=== PATIENT | female | born 1985 | race Two or more races ===

== ENCOUNTER 2024-03-23 16:44 | Inpatient (IN) | payer MEDICAID, SELFPAY ==
[2024-03-23 16:44] VITALS: BMI 33.0
[2024-03-23 16:55] VITALS: BP 138/98; PULSE 105; RESP 18; TEMP 36.7; O2SAT 99
--- NOTE | 2024-03-23 17:01 | EKG_ITS ---
[facility] (Formerly [facility]) Test Date: 2024-03-23 Pat Name: SEVERINO BIANCHI Department: Room: - Gender: Female Beater Out: : 1985 Requested By: Casey Anguiano (PAOLO) Order Number: [id number] Reading MD: Casey Anguiano (STEREOTYPER) Measurements Intervals Eunice Rate: 106 P: 27 CA: 119 QRS: 26 QRSD: 76 T: 25 QT: 336 QTc: 446 Interpretive Statements SINUS TACHYCARDIA WITH SHORT CA INTERVAL ABNORMAL RHYTHM ECG Compared to ECG 11/11/2023 18:34:16 Short CA interval now present Sinus rhythm no longer present T-wave abnormality no longer present /store/S0/[id number].pdf
--- NOTE | 2024-03-23 17:02 | PD.EDRME ---
Rapid Medical Screening Exam RME Arrival date/time: 03/23/24 16:44 38-year-old female presents emergency department complaints of nausea vomiting chest pain and abdominal pain Chief Complaint: Abdominal Pain Time Seen by Provider: 03/23/24 16:51 Vital signs: Vital Signs Temperature 98.0 F 03/23/24 16:55 Pulse Rate 105 H 03/23/24 16:55 Respiratory Rate 18 03/23/24 16:55 Blood Pressure 138/98 H 03/23/24 16:55 Pulse Oximetry (%) 99 03/23/24 16:55 Oxygen Delivery Method Room Air 03/23/24 16:55
[2024-03-23] MEDS: ACETAMINOPHEN 500 MG TABLET 1000 MG PO (17:20)
[2024-03-23 17:35] LABS: Basophils # (Auto) 0.1 Thou/mm3 (0.0-0.2); Basophils % (Auto) 1 % (0-2.5); Eosinophils % (Auto) 0 % (0-10); Hematocrit 35.6 % (36.0-46.0); Hemoglobin 10.4 g/dL (12.0-16.0); Immature Granulocytes % (Auto) 0 % (0-0); Immature Granulocytes Auto 0.05 Thou/mm3 (0.00-0.00); Lymphocytes # (Auto) 0.7 Thou/mm3 (1.0-4.8); Lymphocytes % (Auto) 6 % (10-50); Mean Corpuscular HGB Conc 29.2 g/dl (31.0-37.0); Mean Corpuscular Hemoglobin 19.7 pg (25.0-35.0); Mean Corpuscular Volume 67 fL (80-100); Monocytes # (Auto) 0.8 Thou/mm3 (0.0-0.8); Monocytes % (Auto) 6 % (0-12); Neutrophils # (Auto) 11.7 Thou/mm3 (1.8-7.7); Neutrophils % (Auto) 88 % (37-80); Nucleated Red Blood Cell % 0 /100 WBC (0); Platelet Count 387 Thou/mm3 (140-440); Red Blood Count 5.29 Miln/mm3 (4.00-5.20); White Blood Count 13.3 Thou/mm3 (3.6-11.0)
[2024-03-23 18:03] LABS: Alanine Aminotransferase 13 U/L (10-49); Albumin, Serum 4.5 gm/dL (3.5-5.0); Albumin/Globulin Ratio 1.2 (1.2-2.2); Alkaline Phosphatase 117 U/L (46-116); Anion Gap 10 (7-16); Aspartate Amino Transferase 30 U/L (0-34); BUN/Creatinine Ratio 13 Ratio (12-20); Bilirubin,Total 0.7 mg/dL (0.3-1.2); Blood Urea Nitrogen 9 mg/dL (9-23); Calcium 9.3 mg/dL (8.3-10.6); Calcium (Corrected) 9.3 mg/dL (8.5-10.1); Carbon Dioxide 20.6 mMol/L (20.0-31.0); Chloride 107 mMol/L (98-107); Creatinine (Component) 0.7 mg/dL (0.6-1.3); Globulin 3.7 gm/dL (2.3-3.5); Glucose 117 mg/dL (74-106); Lipase 1409 U/L (12-53); Osmolality,Calculated 275 (275-295); Potassium 3.4 mMol/L (3.4-5.1); Sodium 138 mMol/L (136-145); Total Protein 8.2 gm/dL (5.7-8.2); Troponin I < 0.020 ng/mL (0.0-0.045); eGFR > 60 See Note
--- NOTE | 2024-03-23 18:11 | PC.NURSE ---
PT CAME TO TRIAGE DESK TO ASK HOW MUCH LONGER. INFORMED THAT MD WAITING ON URINE AND PT STATES I AM UNABLE TO PEE BECAUSE I CAN'T KEEP ANYTHING DOWN. INFORMED PT THAT NURSE WILL LEAVE NOTE FOR MD
--- NOTE | 2024-03-23 18:22 | EDNOTE_ITS ---
<Statement entered by Shy Linares MD - 03/24/24 21:13> As co-signing physician, I was present and available for consult prn. I concur with the plan and care as documented by the midlevel provider. ED General RME/HPI General Chief complaint: Abdominal Pain Stated complaint: ABD PAIN TODAY I HAVE AN ULCER Time Seen by Provider: 03/23/24 16:51 Arrival date/time: 03/23/24 16:44 CC: Left upper quadrant abdominal pain HPI ongoing for the past 30 hours with progressive increase in severity denies any prior history of similar events drinks alcohol on the weekends denies street drugs. Last menstrual cycle was 2 weeks ago. Persistent nausea and vomiting for the past 24 hours with progressive worsening of the pain currently her left upper quadrant abdominal pain is a 9 to a 10 on a 10 scale. The patient is writhing in the bed but is able to answer questions. RME / HPI RME / HPI narrative: 03/23/24 16:44 38-year-old female presents emergency department complaints of nausea vomiting chest pain and abdominal pain Related Data Previous Rx's ?Medication ?Instructions ?Recorded meloxicam 15 mg tablet (Mobic) 15 mg PO QDAY #15 tabs 09/05/17 medroxyprogesterone 10 mg tablet 10 mg PO QDAY #10 tabs 11/29/23 (Provera) ondansetron 4 mg disintegrating 4 mg PO Q8H PRN nausea and 11/29/23 tablet vomiting #10 tabs pantoprazole 40 mg tablet,delayed 40 mg PO QDAY #20 tabs 12/07/23 release (Protonix) Allergies Allergy/AdvReac Type Severity Reaction Status Date / Time No Known Allergies Allergy Verified 03/23/24 16:47 Review of Systems Review of Systems Narrative Review of Systems: GEN: No fever, no chills, no weight loss EYES: No discharge, no visual changes, no pain HEENT: No ear pain, no congestion, no sore throat PULM: No shortness of breath, no cough, no congestion CV: No chest pain, no dyspnea on exertion, no palpitations GI: No nausea, no vomiting, no diarrhea, + pain, no constipation : No frequency, no urgency, no dysuria MUSC/SKEL: No joint pain, no back pain SKIN: No rash PSYCH: No hallucinations, no depression HEME/LYMPH: No easy bleeding or bruising tendencies NEURO: No weakness, no headache Past Medical History Past Medical History CARDIAC: Negative Cardiac Disorders or Congestive Heart Failure RESPIRATORY: Negative Chronic Obstructive Pulmonary Disease (COPD) or Asthma GENITOURINARY: Negative Renal Disease REPRODUCTIVE: Positive Previous Pregnancies ENDOCRINE: Negative Diabetes Mellitus Type 1 or Diabetes Mellitus Type 2 HEMATOLOGIC: Positive Anemia; Negative Sickle Cell Disease OTHER HISTORY: Positive Blood Transfusions; Negative Blood Transfusion Reaction or Cancer Surgical History SURGICAL: Positive Tubal Ligation and Section Social History SMOKING STATUS: Never smoker SUBSTANCE USE: does not use ED Exam Narrative Physical exam: [General: Obese in significant discomfort but not in any acute distress Head normocephalic HEENT: Within acceptable limits Neck is supple nontender Chest equal chest rise nontender to palpation Respiratory: Clear to auscultation no wheezes crackles or rubs CV: Rate rhythm is regular no murmurs rubs or clicks Abdomen is distended secondary to body habitus soft epigastric and left upper quadrant tenderness with palpation. Mild reflexive guarding no rebound tenderness. No lower abdomen pain with palpation. Back: No CVA tenderness no spinous process tenderness from cervical spine thoracic and lumbar spine Skin: Intact no petechiae rash induration ulceration or crepitus Extremities: Moving all extremity against resistance cap refill less than 2 seconds neurosensory intact Neuro: Awake alert oriented x3 Glascow coma 15 no focal deficits] Course Quality Measures none Orders Category Date Time Status Patient Condition Routine Admission 03/23/24 19:23 Ordered Activity as Tolerated Routine Care 03/23/24 19:23 Ordered EKG (ED ONLY) *Do not use* NOW Care 03/23/24 17:02 Completed NPO NOW Care 03/23/24 19:23 Active Notify provider NEEDED Care 03/23/24 19:23 Active Saline [Insert IV] NOW Care 03/23/24 18:20 Active Diet NPO (NOW) Diet 03/23/24 19:[address] abdomen pelvis wo con Stat Exams 03/23/24 19:02 Completed EKG (ED Only) Stat Exams 03/23/24 17:01 Draft XR chest 1V portable Stat Exams 03/23/24 19:04 Completed Alcohol, Blood Medical Stat Lab 03/23/24 17:22 Completed CBC AM DRAW Lab 03/24/24 05:00 Ordered CBC AM DRAW Lab 03/25/24 05:00 Ordered CBC AM DRAW Lab 03/26/24 05:00 Ordered CBC Stat Lab 03/23/24 17:22 Completed Comprehensive Metabolic Panel AM DRAW Lab 03/24/24 05:00 Ordered Comprehensive Metabolic Panel AM DRAW Lab 03/25/24 05:00 Ordered Comprehensive Metabolic Panel AM DRAW Lab 03/26/24 05:00 Ordered Comprehensive Metabolic Panel Stat Lab 03/23/24 17:22 Completed HCG Qualitative,Urine Stat Lab 03/23/24 20:40 Completed Lipase Stat Lab 03/23/24 17:22 Completed Lipid Panel Stat Lab 03/23/24 17:22 Completed Magnesium Stat Lab 03/23/24 17:22 Completed Phosphorous Stat Lab 03/23/24 17:22 Completed Troponin I Stat Lab 03/23/24 17:22 Completed UA, C/S IF [Urinalysis, C/S if Indicated] Stat Lab 03/23/24 20:40 Completed Urine Culture Stat Lab 03/23/24 20:40 Received Acetaminophen Tab [Tylenol ES Tab] Med 03/23/24 17:12 Discontinued 1,000 mg PO X1 ONE Acetaminophen Tab [Tylenol Tab] Med 03/23/24 19:23 Active 650 mg PO Q6H PRN Enoxaparin [Lovenox] Med 03/24/24 09:00 Active 40 mg SC QDAY Folic Acid Med 03/23/24 21:00 Discontinued 1 mg PO BID Folic Acid Inj Med 03/23/24 20:13 Discontinued 1 mg IVP X1 ONE HYDROmorphone INJ [Dilaudid Inj] Med 03/23/24 19:23 Active 0.5 mg IVP Q2H PRN LORazepam [Ativan Inj] Med 03/23/24 20:05 Active 0.5 mg IV Q2HR PRN LORazepam [Ativan Inj] Med 03/23/24 20:05 Active 1 mg IV Q2HR PRN LORazepam [Ativan Inj] Med 03/23/24 20:05 Active 2 mg IV Q2HR PRN Magnesium Sulfate 4 GM Ivpb [Magnesium Sulfate Ivpb] Med 03/23/24 20:41 Active 4 gm in 50 ml IV X1 Morphine Inj Med 03/23/24 18:20 Active 4 mg IVP Q1H PRN Ondansetron Inj [Zofran Inj] Med 03/23/24 18:20 Discontinued 4 mg IV X1 ONE Pantoprazole Inj [Protonix Inj] Med 03/24/24 09:00 Active 40 mg IV QDAY Ringers Lactated 1000 ml [Lactated Ringers] 1,000 ml Med 03/23/24 19:30 Discontinued IV 250 mls/hr Sodium Chloride 0.9% 1000 ml [Ns] 1,000 ml Med 03/23/24 18:21 Active IV 250 mls/hr Sodium Chloride 0.9% 1000 ml [Ns] 1,000 ml Med 03/23/24 18:20 Discontinued IV 999 mls/hr Thiamine Inj [Vitamin B-1 Inj] Med 03/23/24 20:13 Discontinued 100 mg IVP X1 ONE Thiamine [Vitamin B-1] Med 03/23/24 21:00 Discontinued 100 mg PO BID Code Status Routine Oth 03/23/24 19:23 Ordered Vital Signs Vital signs: Vital Signs Temperature 98.0 F 03/23/24 16:55 Pulse Rate 105 H 03/23/24 16:55 Respiratory Rate 18 03/23/24 16:55 Blood Pressure 138/98 H 03/23/24 16:55 Pulse Oximetry (%) 99 03/23/24 16:55 Oxygen Delivery Method Room Air 03/23/24 16:55 [facility] Patient data External records reviewed:: [facility] previous records Clinical information provided by:: patient Social determinants that could affect healthcare access:: none Patient has the following chronic illnesses:: Gastric ulcer How is presenting disease/condition affected by chronic disease/condition?: u neffected by Evaluation data The following diagnostics were reviewed and interpreted by me:: lab results and radiology exam(s) Lab and/or radiology exams considered but not ordered:: CBC shows a leukocytosis of 13.3 and H&H of 10.4 and 35.6 with platelets of 387 CMP shows a sodium 138 potassium 3.4 chloride of 107 CO2 of 20.6 BUN of 9 creatinine 0.7 with a glucose of 117. Lipase is 1409. Interpretation Summary: Patient's case discussed with Dr. Dhaliwal agrees to except the patient for admission will order CT of the abdomen pelvis and lipids. Medications Medications considered but not ordered:: None Medication administrations:: Medication Administration History Acetaminophen (Acetaminophen 325 Mg Tablet) 650 mg PO Q6H PRN PRN Reason: Fever >101.5 Stop: 04/22/24 19:22 Enoxaparin Sodium (Enoxaparin Sod Inj 40 Mg/0.4 Ml Syringe) 40 mg SC QDAY [facility] Stop: 04/07/24 08:59 Hydromorphone HCl (Hydromorphone Inj 2 Mg/Ml Vial) 0.5 mg IVP Q2H PRN PRN Reason: PAIN Stop: 03/28/24 19:22 Last Admin: 03/23/24 22:40 Dose: 0.5 mg Documented By: Admin: 03/23/24 20:40 Dose: 0.5 mg Documented By: NISSA Sodium Chloride (Ns) 1,000 mls @ 250 mls/hr IV .Q4H [facility] Stop: 04/22/24 18:20 Last Admin: 03/23/24 21:07 Dose: 250 mls/hr Documented By: NISSA Magnesium Sulfate (Magnesium Sulfate Ivpb) 4 gm in 50 mls @ 12.5 mls/hr IV X1 ONE Stop: 03/24/24 00:40 Last Admin: 03/23/24 21:15 Dose: 12.5 mls/hr Documented By: NISSA Lorazepam (Lorazepam 2 Mg/Ml Vial) 0.5 mg IV Q2HR PRN PRN Reason: CIWA SCORE 8-13 Stop: 03/28/24 20:04 Lorazepam (Lorazepam 2 Mg/Ml Vial) 1 mg IV Q2HR PRN PRN Reason: CIWA SCORE 14-19 Stop: 03/28/24 20:04 Lorazepam (Lorazepam 2 Mg/Ml Vial) 2 mg IV Q2HR PRN PRN Reason: CIWA SCORE 20-25 Stop: 03/28/24 20:04 Morphine Sulfate (Morphine Sulf Inj 10 Mg/Ml Vial) 4 mg IVP Q1H PRN PRN Reason: PAIN SCALE 4-10(Mod-Sev Last Admin: 03/23/24 19:16 Dose: 4 mg Documented By: Admin: 03/23/24 19:12 Dose: 4 mg Documented By: BREANA Pantoprazole Sodium (Pantoprazole Inj 40 Mg Vial) 40 mg IV QDAY [facility] Stop: 04/23/24 08:59 Discontinued Medications Acetaminophen (Acetaminophen 500 Mg Tablet) 1,000 mg PO X1 ONE Stop: 03/23/24 17:13 Last Admin: 03/23/24 17:20 Dose: 1,000 mg Documented By: OA Folic Acid (Folic Acid 1 Mg Tablet) 1 mg PO BID [facility] Stop: 03/28/24 20:59 Folic Acid (Folic Acid Inj 1 Mg/0.2 Ml) 1 mg IVP X1 ONE Stop: 03/23/24 20:14 Last Admin: 03/23/24 21:07 Dose: 1 mg Documented By: NISSA Sodium Chloride (Ns) 1,000 mls @ 999 mls/hr IV .Q1H1M ONE Stop: 03/23/24 19:20 Last Infusion: 03/23/24 21:39 Dose: Infused Documented By: Admin: 03/23/24 19:10 Dose: 999 mls/hr Documented By: BREANA Lactated Ringer's (Lactated Ringers) 1,000 mls @ 250 mls/hr IV .Q4H [facility] Stop: 04/22/24 19:29 Last Admin: 03/23/24 20:51 Dose: Not Given Documented By: NISSA Non-Admin Reason: Cancelled by Provider Ondansetron HCl (Ondansetron Inj 2 Mg/Ml Inj 2 Ml) 4 mg IV X1 ONE; Protocol Stop: 03/23/24 18:21 Last Admin: 03/23/24 19:10 Dose: 4 mg Documented By: BREANA Thiamine HCl (Thiamine 100 Mg Tablet) 100 mg PO BID [facility] Stop: 03/28/24 20:59 Thiamine HCl (Thiamine Inj 100 Mg/Ml Vial 2 Ml) 100 mg IVP X1 ONE Stop: 03/23/24 20:14 Last Admin: 03/23/24 21:06 Dose: 100 mg Documented By: NISSA None Consultations Consultation(s) initiated? (list below): No Diagnosis Differential Diagnosis ED Complaint MDM: Pancreatitis gastritis cholelithiasis Most likely diagnosis given after review of the tests above:: Pancreatitis Admission Indicated Admission indicated?: indicated Explain why admission is indicated or not indicated:: Quires further medical management Admission Request Was there a request for admission?: No Disposition Plan Disposition Plan: Admit Medical Decision Making Differential Diagnosis Differential Diagnosis: Pancreatitis gastritis cholelithiasis Lab Data 03/23/24 17:22 03/23/24 17:22 Labs: Lab Results 03/23/24 03/23/24 Range/Units 17:22 20:40 WBC 13.3 H (3.6-11.0) Thou/mm3 RBC 5.29 H (4.00-5.20) Miln/mm3 Hgb 10.4 L (12.0-16.0) g/dL Hct 35.6 L (36.0-46.0) % MCV 67 L (80-100) fL MCH 19.7 L (25.0-35.0) pg MCHC 29.2 L (31.0-37.0) g/dl RDW Std Deviation 58.0 H (36.4-46.3) fL Plt Count 387 D (140-440) Thou/mm3 Neut % (Auto) 88 H (37-80) % Lymph % (Auto) 6 L (10-50) % Dickens % (Auto) 6 (0-12) % Eos % (Auto) 0 (0-10) % Baso % (Auto) 1 (0-2.5) % Neut # (Auto) 11.7 H (1.8-7.7) Thou/mm3 Lymph # (Auto) 0.7 L (1.0-4.8) Thou/mm3 Dickens # (Auto) 0.8 (0.0-0.8) Thou/mm3 Eos # (Auto) 0.0 (0.0-0.5) Thou/mm3 Baso # (Auto) 0.1 (0.0-0.2) Thou/mm3 Immature Gran # (Auto) 0.05 H (0.00-0.00) Thou/mm3 Absolute Nucleated RBC 0.00 (0.00-0.00) Thou/mm3 Immature Gran % 0 (0-0) % Nucleated RBC % 0 (0) /100 WBC Sodium 138 (136-145) mMol/L Potassium 3.4 (3.4-5.1) mMol/L Chloride 107 (98-107) mMol/L Carbon Dioxide 20.6 (20.0-31.0) mMol/L Anion Gap 10 (7-16) BUN 9 (9-23) mg/dL Creatinine 0.7 (0.6-1.3) mg/dL Estim Creat Clear Calc 104.0 (>60) mL/min eGFR > 60 (60 - ) See Note BUN/Creatinine Ratio 13 (12-20) Ratio Glucose 117 H (74-106) mg/dL Calculated Osmolality 275 (275-295) Calcium 9.3 (8.3-10.6) mg/dL Corrected Calcium 9.3 (8.5-10.1) mg/dL Phosphorus 3.2 (2.4-5.1) mg/dL Magnesium 1.6 (1.6-2.6) mg/dL Total Bilirubin 0.7 (0.3-1.2) mg/dL AST 30 (0-34) U/L ALT 13 (10-49) U/L Alkaline Phosphatase 117 H (46-116) U/L Troponin I < 0.020 (0.0-0.045) ng/mL Total Protein 8.2 (5.7-8.2) gm/dL Albumin 4.5 (3.5-5.0) gm/dL Globulin 3.7 H (2.3-3.5) gm/dL Albumin/Globulin Ratio 1.2 (1.2-2.2) Triglycerides 85 (30-150) mg/dL Cholesterol 179 (132-200) mg/dL LDL Cholesterol, Calc 70 (0-130) mg/dL HDL Cholesterol 92 H (40-60) mg/dL Cholesterol/HDL Ratio 1.9 L (3.7-5.6) RATIO Lipase 1409 H* (12-53) U/L Ur Collection Type Clean Catch Urine Color Yellow (Lt Yel-Yel) Urine Clarity Turbid A (Clear/Hazy) Urine pH 6.5 (5.0-7.0) Ur Specific [place] 1.031 (1.001-1.035) Urine Protein 2+ A (Neg - Trace) Urine Glucose (UA) Negative (Negative) Urine Ketones 4+ A (Negative) Urine Blood 3+ A (Negative) Urine Nitrite Positive (Negative) Urine Bilirubin Negative (Negative) Urine Urobilinogen (Auto) Negative (0.0-1.0) mg/dL Ur Leukocyte Esterase Positive (Negative) Urine RBC 150 H (0-3) /hpf Urine WBC 43 H (0-5) /hpf Ur Squamous Epith Cells 4 (0-5) /hpf Urine Bacteria None (None) Ur Culture Indicated? 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
[2024-03-23 18:27] VITALS: BP 123/100; PULSE 98; RESP 20; TEMP 36.9; O2SAT 100
--- NOTE | 2024-03-23 19:02 | XR_ITS ---
Examination: CT abdomen and pelvis without contrast. Coronal 3-D reconstructions. Sagittal 2-D reconstructions. Date and time of exam:March 23, 2024 2100 hrs. Comparison December 07, 2023 Indications: Left upper abdominal pain nausea vomiting today CTDI: vol (mGy): 10.41 DLP: (mGycm): 609 Technique: Axial images of the abdomen have been obtained, 3 mm slice thickness Intravenous contrast material has not been administered. Low dose protocols were performed. One or more of the following dose reduction techniques were used; automated exposure control, adjustment of the mA and/or KV according to patient size, use of iterative reconstruction technique. Findings: Diffuse fatty infiltration throughout the liver with 5 mm liver cyst Mild density in the gallbladder Diffuse edema surrounding the stomach with mucosal thickening Prominent edema surrounding the pancreas Spleen is not enlarged Duodenum also shows mucosal thickening Bilateral 1 to 2 mm renal calculi with no hydronephrosis or ureteral calculi Significantly enlarged fundus of the uterus Contracted urinary bladder Ovaries appear mildly prominent Impression: Acute pancreatitis Severe gastritis active peptic disease duodenum Bilateral nonobstructing renal calculi Significantly enlarged fundus of uterus and enlarged ovaries, recommend repeat pelvic sonography follow-up
--- NOTE | 2024-03-23 19:04 | XR_ITS ---
Examination: AP chest single view Technique: AP portable upright chest single view Exam date and time: March 23, 2024 1933 hrs. Indications: Admission chest x-ray Findings: Normal heart size The lungs are clear. The osseous structures are intact Impression: No active disease
[2024-03-23 19:09] LABS: Alcohol, Blood Medical < 10.0 mg/dL (0-10.0)
[2024-03-23] MEDS: SODIUM CHLORIDE 0.9% 1000 ML 1,000 ML 999 ML IV (19:10)
[2024-03-23] MEDS: ONDANSETRON INJ 2 MG/ML INJ 2 ML 4 MG IV (19:10)
[2024-03-23] MEDS: MORPHINE SULF INJ 10 MG/ML VIAL 4 MG IVP ×2 (19:12→19:16)
[2024-03-23 19:28] LABS: Cardiac Risk Estimate 1.9 RATIO (3.7-5.6); Cholesterol 179 mg/dL (132-200); HDL Cholesterol 92 mg/dL (40-60); LDL Cholesterol,Calculated 70 mg/dL (0-130); Triglycerides 85 mg/dL (30-150)
[2024-03-23 19:49] LABS: Magnesium 1.6 mg/dL (1.6-2.6); Phosphorous 3.2 mg/dL (2.4-5.1)
--- NOTE | 2024-03-23 20:05 | ESHP_ITS ---
Documentation for date of: 03/23/24 HPI History of Present Illness Chief complaint: Abdominal pain History of present illness: 38-year-old female G6, with past medical history of gastritis/GERD, iron deficiency anemia secondary to menorrhagia, tubal ligation presents to the ED on 03/23 with acute abdominal pain which started yesterday 03/22. The pain is severe and she rates it 10 out of 10; pain is associated with nausea and multiple vomiting episodes and raditates to her back (thoracic region T6-8). Patient states that she vomited a couple times at home and a couple times in the ED; there was no blood or dark discoloration in the vomitus. Patient drinks 3-4 times a day on any given week; however, she states she only drinks 1 personal size ( 4 ounce) tequila when she does drink. Patient denies smoking tobacco or using any illicit drugs, patient also denies any trauma to the area or history of gallstones. Patient does state that on prior presentations to the ED she was told that she has an ulcer on her stomach. Patient otherwise denies any concerning symptoms such as chest pain, shortness of breath, palpitations, dizziness/weakness, weight changes, melena, hematochezia, hematemesis, dysuria, hematuria or seizures. 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 Pertinent lab findings included WBC of 13.3, hemoglobin 10.4 (MCV 67), platelet 387, potassium 3.4, creatinine 0.7, magnesium 1.6, troponin less than 0.020, lipid panel (triglyceride 85, cholesterol 179, LDL 70, HDL 92), lipase 1409. Urine test pending, EKG shows sinus tachycardia and chest x-ray does not show any acute process. CT abdomen pelvis is pending. Patient will be admitted for acute pancreatitis and treated with IV fluid resuscitation, antiemetics and analgesia control. Exam Vital Signs Temp Pulse Resp BP Pulse Ox O2 Del Method 98.5 F 98 20 123/100 H 100 Room Air 03/23/24 18:27 03/23/24 18:27 03/23/24 18:27 03/23/24 18:27 03/23/24 18:27 03/23/24 18:27 Narrative Exam Physical Exam: GENERAL: Awake, hunching over in pain, answering questions appropriately, obese. HEENT: NC/AT. Moist mucosa. PERRLA/EOMI. CARDIO: Heart RRR, no obvious murmurs, no JVD. PULM: No coughing or visible SOB. Lungs CTA B/L. GI: Abdomen soft, tender to palpation on RUQ, epigastric and LUQ; guarding evident, no rebound tenderness. Borborygmi apparent. SKIN/MSK/EXT: No wounds/discoloration/rashes/edema/amputations. +Pedal pulses present B/L. NEURO: Oriented x3, Moves extremities x4 and no focal neurological deficit. Results: Labs 03/23/24 17:22 03/23/24 17:22 Labs: Short CBC 03/23/24 Range/Units 17:22 WBC 13.3 H (3.6-11.0) Thou/mm3 Hgb 10.4 L (12.0-16.0) g/dL Hct 35.6 L (36.0-46.0) % Plt Count 387 D (140-440) Thou/mm3 BMP 03/23/24 17:22 Sodium 138 Potassium 3.4 Chloride 107 Carbon Dioxide 20.6 BUN 9 Creatinine 0.7 Glucose 117 H Calcium 9.3 Cardiac Enzymes 03/23/24 Range/Units 17:22 Troponin I < 0.020 (0.0-0.045) ng/mL Liver Function 03/23/24 Range/Units 17:22 Total Bilirubin 0.7 (0.3-1.2) mg/dL AST 30 (0-34) U/L ALT 13 (10-49) U/L Alkaline Phosphatase 117 H (46-116) U/L Albumin 4.5 (3.5-5.0) gm/dL Quality Measures Quality Measures VTE prophylaxis Medications Home Medications and Allergies Allergies Allergy/AdvReac Type Severity Reaction Status Date / Time No Known Allergies Allergy Verified 03/23/24 16:47 Visit Medications Acetaminophen (Acetaminophen 325 Mg Tablet) 650 mg PO Q6H PRN PRN Reason: Fever >101.5 Stop: 04/22/24 19:22 Enoxaparin Sodium (Enoxaparin Sod Inj 40 Mg/0.4 Ml Syringe) 40 mg SC QDAY SARAH Stop: 04/07/24 08:59 Hydromorphone HCl (Hydromorphone Inj 2 Mg/Ml Vial) 0.5 mg IVP Q2H PRN PRN Reason: PAIN Stop: 03/28/24 19:22 Sodium Chloride (Ns) 1,000 mls @ 250 mls/hr IV .Q4H SARAH Stop: 04/22/24 18:20 Lactated Ringer's (Lactated Ringers) 1,000 mls @ 250 mls/hr IV .Q4H SARAH Stop: 04/22/24 19:29 Morphine Sulfate (Morphine Sulf Inj 10 Mg/Ml Vial) 4 mg IVP Q1H PRN PRN Reason: PAIN SCALE 4-10(Mod-Sev Last Admin: 03/23/24 19:16 Dose: 4 mg Discontinued Medications Acetaminophen (Acetaminophen 500 Mg Tablet) 1,000 mg PO X1 ONE Stop: 03/23/24 17:13 Last Admin: 03/23/24 17:20 Dose: 1,000 mg Sodium Chloride (Ns) 1,000 mls @ 999 mls/hr IV .Q1H1M ONE Stop: 03/23/24 19:20 Last Admin: 03/23/24 19:10 Dose: 999 mls/hr Ondansetron HCl (Ondansetron Inj 2 Mg/Ml Inj 2 Ml) 4 mg IV X1 ONE; Protocol Stop: 03/23/24 18:21 Last Admin: 03/23/24 19:10 Dose: 4 mg Assessment & Plan Plan 38-year-old female G6, with past medical history of gastritis/GERD, iron deficiency anemia secondary to menorrhagia, tubal ligation presents on 03/23 with acute abdominal pain which started yesterday 03/22 will be admitted for acute pancreatitis and treated with IV fluid resuscitation, antiemetics and analgesia control. #Acute Pancreatitis #Leukocytosis Ddx: Likely alcohol induced vs. medication (ibuprofen use), idiopathic, gallstone; less likely hyperlipidemia and infectious (hepatitis A/B?) Vicente's Criteria of 0-1; low likelihood for severe pancreatitis requiring surgery Patient has prototypical pain with elevated lipase; leukocytosis likely secondary to acutely ill status In ED given morphine 4mg x2 for pain control, 1L NS bolus, Zofran 4mg x1 and tylenol 1000mg CT Abd/P severe gastritis active peptic disease duodenum Plan: IVF resuscitation IV Zofran 4mg prn Multimodal analgesia NPO, advance as tolerated Monitor with morning labs #Alcohol-use disorder Patient apparently drinks 3-4 times a week at least one 4oz (personal size) tequila Low likelihood of alcoholism; presenting with ethyl alcohol <10 Last drink was this weekend 03/20-03/21 AST 30, ALT 13, Alk phos 117, Albumin 4.5 - stable Plan: CIWA protocol; precautionary IV Thiamine 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 avoid recurrent pancreatitis #Sinus Tachycardia #Hypertension Patient has no history of hypertension Likely secondary to acutely ill status and pain Plan: Will treat above and monitor vitals #Electrolyte Abnormalities Plan: Will replete as needed Follow-up with morning labs #Microcytic Anemia Likely 2/2 to menorrhagia Has previous history of peripheral blood smears on chart On ferrous sulfate 325mg Plan: Continue when appropriate #Uterine Fibroids #Menorrhagia #Ovarian Cyst #Bilateral nonobstructing renal calculi As seen on previous uterine ultrasounds Significantly enlarged fundus of uterus and enlarged ovaries Bilateral nonobstructing renal calculi seen on CT Abd/P Plan: Recommend repeat pelvic sonography follow-up per radiology read Follow-up outpatient Hospital Management: Lines - PIV Bowel - Senna prn Diet - NPO, advance as tolerated GI prophylaxis - protonix DVT prophylaxis - lovenox Dispo - IVF for pancreatitis; advance as tolerated Code - Full Patient seen and examined with attending Dr. Dhaliwal and senior resident Dr. Darlene Zambrano, PGY-1 Attending Provider Attestation/Addendum Pt was evaluated and plan formulated together with the housestaff team. I have reviewed the residents note above and agree with most of its content. Please refer to the residents note for additional details. The patient is a 38-year-old female presenting with an acute onset of abdominal pain. The pain began yesterday, initially intermittent and resolving briefly but becoming constant today. The pain radiates to her back. She denies fever or diarrhea but reports associated nausea and vomiting. She describes the pain as severe and unlike any prior episodes, prompting her to seek evaluation in the emergency room. The patient has a medical history significant for a presumed peptic ulcer and is currently taking pantoprazole. She reports consuming alcohol 3?4 times per week, typically 4 oz of tequila per occasion, with her last intake occurring two days ago. In the emergency room, her vital signs were as follows: temperature 98.5?F, blood pressure 123/100 mmHg, heart rate 98 bpm, and respiratory rate 20 breaths per minute. Laboratory results revealed leukocytosis (WBC 13.3), hemoglobin 14.1, platelets 387, and an elevated lipase level of 1409. Liver function tests (AST, ALT, bilirubin) and lipid panel were within normal limits. A CT scan demonstrated findings consistent with acute pancreatitis, severe gastritis, and active peptic disease involving the duodenum. Bilateral nonobstructing renal calculi were also noted. The patient will be admitted for further management and treatment.
[2024-03-23 20:24] VITALS: BP 131/97; PULSE 89; RESP 20; TEMP 36.9; O2SAT 98
[2024-03-23] MEDS: HYDROmorphone INJ 2 MG/ML VIAL 0.5 MG IVP ×2 (20:40→22:40)
[2024-03-23 20:59] LABS: Collection Type, Urine Clean Catch
[2024-03-23 21:02] LABS: HCG Qualitative,Urine Negative
[2024-03-23 21:04] LABS: Bilirubin,Urine Negative (Negative); Blood,Urine 3+ (Negative); Clarity,Urine Turbid (Clear/Hazy); Color,Urine Yellow (Lt Yel-Yel); Culture Indicated,Urine Yes; Glucose, Urine Negative (Negative); Ketones,Urine 4+ (Negative); Leukocyte Esterase,Urine Positive (Negative); Nitrite,Urine Positive (Negative); PH,Urine 6.5 (5.0-7.0); Protein,Urine 2+ (Neg - Trace); RBC,Urine 150 /hpf (0-3); Specific Gravity,Urine 1.031 (1.001-1.035); Squamous Epithelial Cell,Urine 4 /hpf (0-5); Urobilinogen,Urine Negative mg/dL (0.0-1.0); WBC,Urine 43 /hpf (0-5)
[2024-03-23] MEDS: THIAMINE INJ 100 MG/ML VIAL 2 ML IVP (21:06)
[2024-03-23] MEDS: FOLIC ACID INJ 1 MG/0.2 ML IVP (21:07)
[2024-03-23] MEDS: SODIUM CHLORIDE 0.9% 1000 ML 1,000 ML 250 ML IV (21:07)
[2024-03-23] MEDS: Magnesium Sulfate 4 GM Ivpb 4 GM/50 ML BAG IV (21:15)
[2024-03-23 23:45] VITALS: BMI 35.9
[2024-03-23 23:57] VITALS: BP 180/97; PULSE 89; RESP 20; TEMP 36.9; O2SAT 98
[2024-03-24] VITALS (9 sets, daily range): BP systolic 147–180; BP diastolic 86–102; PULSE 70–101; RESP 17–19; TEMP 36.1–36.7; O2SAT 96–98
[2024-03-24] MEDS: HYDROmorphone INJ 2 MG/ML VIAL 0.25 MG IVP (00:21)
[2024-03-24] MEDS: hydrALAZINE INJ 20 MG/ML VIAL 10 MG IV (00:41)
[2024-03-24] MEDS: SODIUM CHLORIDE 0.9% 1000 ML 1,000 ML 250 ML IV ×4 (01:17→14:33)
[2024-03-24] MEDS: HYDROmorphone INJ 2 MG/ML VIAL 0.5 MG IVP ×11 (01:24→23:42)
[2024-03-24 06:00] LABS: Basophils % (Auto) 0 % (0-2.5); Eosinophils % (Auto) 0 % (0-10); Hematocrit 29.6 % (36.0-46.0); Immature Granulocytes % (Auto) 0 % (0-0); Immature Granulocytes Auto 0.05 Thou/mm3 (0.00-0.00); Lymphocytes # (Auto) 0.8 Thou/mm3 (1.0-4.8); Lymphocytes % (Auto) 6 % (10-50); Mean Corpuscular HGB Conc 29.7 g/dl (31.0-37.0); Mean Corpuscular Hemoglobin 20.2 pg (25.0-35.0); Mean Corpuscular Volume 68 fL (80-100); Monocytes # (Auto) 0.9 Thou/mm3 (0.0-0.8); Monocytes % (Auto) 7 % (0-12); Neutrophils # (Auto) 10.7 Thou/mm3 (1.8-7.7); Neutrophils % (Auto) 86 % (37-80); Nucleated Red Blood Cell % 0 /100 WBC (0); Platelet Count 249 Thou/mm3 (140-440); RDW Standard Deviation 58.1 fL (36.4-46.3); Red Blood Count 4.36 Miln/mm3 (4.00-5.20); White Blood Count 12.5 Thou/mm3 (3.6-11.0)
[2024-03-24 06:03] LABS: Hemoglobin 8.8 g/dL (12.0-16.0)
[2024-03-24 06:43] LABS: Alanine Aminotransferase 10 U/L (10-49); Albumin/Globulin Ratio 1.4 (1.2-2.2); Alkaline Phosphatase 97 U/L (46-116); Anion Gap 9 (7-16); Aspartate Amino Transferase 16 U/L (0-34); BUN/Creatinine Ratio 18 Ratio (12-20); Bilirubin,Total 0.7 mg/dL (0.3-1.2); Blood Urea Nitrogen 9 mg/dL (9-23); Calcium 8.4 mg/dL (8.3-10.6); Calcium (Corrected) 8.4 mg/dL (8.5-10.1); Carbon Dioxide 21.1 mMol/L (20.0-31.0); Chloride 109 mMol/L (98-107); Creatinine (Component) 0.5 mg/dL (0.6-1.3); Estimated Creatinine Clearance 152.1 mL/min (>60); Globulin 2.9 gm/dL (2.3-3.5); Glucose 113 mg/dL (74-106); Osmolality,Calculated 277 (275-295); Potassium 3.4 mMol/L (3.4-5.1); Sodium 139 mMol/L (136-145); Total Protein 6.9 gm/dL (5.7-8.2); eGFR > 60 See Note
--- NOTE | 2024-03-24 07:53 | PC.NURSE ---
pt complained of nausea last noc. No zofran ordered. Notified
[2024-03-24] MEDS: PANTOPRAZOLE INJ 40 MG VIAL IV (08:23)
[2024-03-24] MEDS: ENOXAPARIN SOD INJ 40 MG/0.4 ML SYRINGE SC (08:24)
--- NOTE | 2024-03-24 09:09 | PC.SS ---
Follow up note: Pt is on IV fluids. Pt will return home upon dc.
[2024-03-24] MEDS: POTASSIUM CHLORIDE 20 mEq TABCR 40 MEQ PO (09:50)
--- NOTE | 2024-03-24 10:10 | ESPR_ITS ---
Documentation for date of: 03/24/24 Subjective Subjective Interval history: Patient seen today at the bedside found awake, alert, orientedx3. Currently stating abdominal pain 10/21, but improves after medication administration. Vital signs stable at this time. Labs significant for downtredning Hg, rest of labs stable. UA indicates UTI but as patient has not symptoms does not require antibiotics. RUQ ultrasound ordered to r/o gallstone pancreatitis. Will continue at this time with aggressive IV hydration. Exam Vital Signs Temp Pulse Resp BP Pulse Ox O2 Del Method 98.1 F 97 17 153/94 H 98 Room Air 03/24/24 08:00 03/24/24 08:00 03/24/24 08:00 03/24/24 08:00 03/24/24 08:00 03/24/24 08:00 Narrative Exam Physical Exam GENERAL: NAD, NC/AT, responsive/cooperative. A&Ox3 HEENT: Moist mucosa. Eyes open, symmetrical, & clear CARDIO: No chest pain on palpation. Heart RRR, no obvious murmurs PULM: No noted coughing/dyspnea. Lungs CTA B/L, no R/W/R GI: Abdomen soft, nondistended, pain on palpation on all quadrants. BSx4 URO/HRIS DEVELOPER:: No further abnormalities noted. SKIN/MSK/EXT: No wounds/rashes/edema/amputations, no pain on palpation. Pedal pulses present B/L NEURO: AAOx3, no focal neuro deficits, able to move all 4 extremities Objective Labs 03/26/24 05:13 03/26/24 05:13 Labs: Laboratory Results - last 24 hr 03/23/24 03/23/24 03/24/24 17:22 20:40 05:26 WBC 13.3 H 12.5 H RBC 5.29 H 4.36 Hgb 10.4 L 8.8 L Hct 35.6 L 29.6 L MCV 67 L 68 L MCH 19.7 L 20.2 L MCHC 29.2 L 29.7 L RDW Std Deviation 58.0 H 58.1 H Plt Count 387 D 249 D Neut % (Auto) 88 H 86 H Lymph % (Auto) 6 L 6 L [place] % (Auto) 6 7 Eos % (Auto) 0 0 Baso % (Auto) 1 0 Neut # (Auto) 11.7 H 10.7 H Lymph # (Auto) 0.7 L 0.8 L [place] # (Auto) 0.8 0.9 H Eos # (Auto) 0.0 0.0 Baso # (Auto) 0.1 0.0 Immature Gran # (Auto) 0.05 H 0.05 H Absolute Nucleated RBC 0.00 0.00 Immature Gran % 0 0 Nucleated RBC % 0 0 Sodium 138 139 Potassium 3.4 3.4 Chloride 107 109 H Carbon Dioxide 20.6 21.1 Anion Gap 10 9 BUN 9 9 Creatinine 0.7 0.5 L Estim Creat Clear Calc 104.0 152.1 eGFR > 60 > 60 BUN/Creatinine Ratio 13 18 Glucose 117 H 113 H Calculated Osmolality 275 277 Calcium 9.3 8.4 Corrected Calcium 9.3 8.4 L Phosphorus 3.2 Magnesium 1.6 Total Bilirubin 0.7 0.7 AST 30 16 ALT 13 10 Alkaline Phosphatase 117 H 97 D Troponin I < 0.020 Total Protein 8.2 6.9 Albumin 4.5 4.0 D Globulin 3.7 H 2.9 Albumin/Globulin Ratio 1.2 1.4 Triglycerides 85 Cholesterol 179 LDL Cholesterol, Calc 70 HDL Cholesterol 92 H Cholesterol/HDL Ratio 1.9 L Lipase 1409 H* Ur Collection Type Clean Catch Urine Color Yellow Urine Clarity Turbid A Urine pH 6.5 Ur Specific Angelica 1.031 Urine Protein 2+ A Urine Glucose (UA) Negative Urine Ketones 4+ A Urine Blood 3+ A Urine Nitrite Positive Urine Bilirubin Negative Urine Urobilinogen (Auto) Negative Ur Leukocyte Esterase Positive Urine RBC 150 H Urine WBC 43 H Ur Squamous Epith Cells 4 Urine Bacteria None Ur Culture Indicated? Yes Urine HCG, Qual Negative Ethyl Alcohol < 10.0 Quality Measures Quality Measures none Assessment & Plan Assessment Current Active Medications: Generic Name Dose Route Start Last Admin Trade Name Freq PRN Reason Stop Dose Admin Acetaminophen 650 mg 03/23/24 19:23 Acetaminophen 325 Mg Tablet PO 04/22/24 19:22 Q6H PRN Fever >101.5 Enoxaparin Sodium 40 mg 03/24/24 09:00 03/24/24 08:24 Enoxaparin Sod Inj 40 Mg/0.4 Ml Syringe SC 04/07/24 08:59 40 mg QDAY SARAH Administration Hydromorphone HCl 0.5 mg 03/23/24 19:23 03/24/24 08:23 Hydromorphone Inj 2 Mg/Ml Vial IVP 03/28/24 19:22 0.5 mg Q2H PRN Administration PAIN Sodium Chloride 1,000 mls @ 250 mls/hr 03/23/24 18:21 03/24/24 09:15 Ns IV 04/22/24 18:20 Not Given .Q4H SARAH Lorazepam 0.5 mg 03/23/24 20:05 Lorazepam 2 Mg/Ml Vial IV 03/28/24 20:04 Q2HR PRN CIWA SCORE 8-13 Lorazepam 1 mg 03/23/24 20:05 Lorazepam 2 Mg/Ml Vial IV 03/28/24 20:04 Q2HR PRN CIWA SCORE 14-19 Lorazepam 2 mg 03/23/24 20:05 Lorazepam 2 Mg/Ml Vial IV 03/28/24 20:04 Q2HR PRN CIWA SCORE 20-25 Morphine Sulfate 4 mg 03/23/24 18:20 03/23/24 19:16 Morphine Sulf Inj 10 Mg/Ml Vial IVP 4 mg Q1H PRN Administration PAIN SCALE 4-10(Mod-Sev Ondansetron HCl 4 mg 03/24/24 07:53 Ondansetron Inj 2 Mg/Ml Inj 2 Ml IV 04/23/24 07:52 Q6H PRN NAUSEA OR VOMITING Protocol Pantoprazole Sodium 40 mg 03/24/24 09:00 03/24/24 08:23 Pantoprazole Inj 40 Mg Vial IV 04/23/24 08:59 40 mg QDAY SARAH Administration Plan 38-year-old female with past medical history of gastritis/GERD, iron deficiency anemia secondary to menorrhagia, tubal ligation presents on 03/23 with acute abdominal pain radiating to the back onset on 03/22/2024. Admitted for acute pancreatitis and treated with IV fluid resuscitation, antiemetics and analgesia control. #Acute Pancreatitis #Leukocytosis most likely secondary to alcohol use, other differentials include medication induced due to ibuprofen, gallstone, hyperlipidemia(unlikely given lipid panel wnl) patient has abdominal pain radiating to the back with elevated lipase in the 1400s, leukocytosis CT abdomen pelvis shows Acute pancreatitis and active peptic disease in the duodenum In ED given morphine 4mg x2 for pain control, 1L NS bolus, Zofran 4mg x1 and tylenol 1000mg RUQ US shows Enlarged pancreatic head consistent with the patient's diagnosis of acute pancreatitis, biliary sludge, no gallstones - aggressive IV hydration - IV Zofran 4mg prn - Multimodal analgesia - Clear liquid diet advance as tolerated #Alcohol use disorder Patient apparently drinks 3-4 times a week at least one 4oz tequila Low likelihood of alcoholism; presenting with ethyl alcohol <10 Last drink was this weekend 03/20-03/21 was given IV thiamine and folate x1 CIWA: 0 - CIWA protocol; precautionary - counseled on cessation of alcohol use #Sinus Tachycardia #Hypertension Patient has no history of hypertension Likely secondary to acutely ill status and pain - Will treat above and monitor vitals #Electrolyte Abnormalities - Will replete as needed #Microcytic Anemia Likely secondary to menorrhagia Has previous history of peripheral blood smears on chart On ferrous sulfate 325mg at home #Uterine Fibroids #Menorrhagia #Ovarian Cyst #Bilateral nonobstructing renal calculi As seen on previous uterine ultrasounds CT abdomen pelvis shows significantly enlarged fundus of uterus and enlarged ovaries bilateral renal calculi nonobstructing - can follow up as outpatient for pelvic ultrasound Case discussed with my senior Dr. Herbert PGY-[address] Lizz Beckham MD PGY-1 Disposition: Medsurg Fluids: NS Feeding: Clear liquid diet Thrombo prophylaxis: lovenox Gastric Ulcer prophylaxis: Pantoprazole 40 mg IV daily CODE STATUS: Full code Senior resident attestation: Patient evaluated and examined at the bedside, plan of care discussed with rest of the team including my attending physician. i agree with the assessment and plan, except as noted. #Acute pancreatitis ; continue aggressive iv fluids, encourgae early enteral feeding, abd soft on physical exam, monitor for compartment syndrome, on dilaudid q 2hr for pain relief. #Gastritis: on protonix. [place]on PGY2 Attending Provider Attestation/Addendum 38-year-old female with GERD/esophagitis/gastritis who presented on 03/23/2024 with complaints of abdominal pain radiating to the back found to have acute pancreatitis subsequently admitted for IV fluid resuscitation. I reviewed above note and agree with findings and plans. I have also personally examined the patient with medicine team and went over assessment and plan with medical team including technical support intern and resident physician.
--- NOTE | 2024-03-24 10:50 | XR_ITS ---
Examination: Abdomen sonogram, Limited Date and time of exam: March 24, 2024 1331 hours INDICATIONS: Epigastric pain one month, diagnosis pancreatitis cholelithiasis Technique: Real-time cho scale transabdominal sonographic images of the upper abdomen obtained. Findings: Gallbladder sludge No gallstones Gallbladder wall 0.2 cm Common bile duct 0.4 cm Pancreatic head 4.0 cm Liver 14.9 cm smooth contour no focal liver lesions Normal hepatopedal portal venous flow Patent IVC IMPRESSION: Enlarged pancreatic head consistent with the patient's diagnosis of acute pancreatitis on CT study March 23, 2024
[2024-03-24 11:25] LABS: Vitamin B12 417 pg/mL (211-911)
[2024-03-24 11:49] LABS: Total Iron Binding Capacity 391 mcg/dL (250-425)
[2024-03-24 11:59] LABS: Iron 38 mcg/dL (50-170); Percent Iron Saturation 9 % (20-55); Unsaturated Iron Binding 353 (225-295)
[2024-03-24] MEDS: FERROUS SULF 325 MG TABLET PO (16:06)
--- NOTE | 2024-03-24 19:35 | PC.NURSE ---
Patient had a chief complaint of pain at beginning of shift. Patient had no IV access. Day shift nurse attempted putting in an IV to no avail. NOC shift nurse and charge nurse was able to obtain a 22g on her right hand.
[2024-03-25] VITALS: BP 166/93; PULSE 99; RESP 18; TEMP 37.1; O2SAT 95
[2024-03-25] MEDS: HYDROmorphone INJ 2 MG/ML VIAL 0.5 MG IVP ×3 (01:58→06:46)
[2024-03-25 04:00] VITALS: BP 156/98; PULSE 90; RESP 18; TEMP 36.7; O2SAT 97
[2024-03-25 05:58] LABS: Basophils % (Auto) 0 % (0-2.5); Eosinophils # (Auto) 0.1 Thou/mm3 (0.0-0.5); Eosinophils % (Auto) 0 % (0-10); Hematocrit 27.4 % (36.0-46.0); Immature Granulocytes % (Auto) 1 % (0-0); Immature Granulocytes Auto 0.08 Thou/mm3 (0.00-0.00); Lymphocytes # (Auto) 1.2 Thou/mm3 (1.0-4.8); Lymphocytes % (Auto) 9 % (10-50); Mean Corpuscular HGB Conc 29.9 g/dl (31.0-37.0); Mean Corpuscular Hemoglobin 20.2 pg (25.0-35.0); Mean Corpuscular Volume 68 fL (80-100); Monocytes # (Auto) 0.9 Thou/mm3 (0.0-0.8); Monocytes % (Auto) 7 % (0-12); Neutrophils # (Auto) 11.2 Thou/mm3 (1.8-7.7); Neutrophils % (Auto) 83 % (37-80); Nucleated Red Blood Cell % 0 /100 WBC (0); Platelet Count 243 Thou/mm3 (140-440); Red Blood Count 4.05 Miln/mm3 (4.00-5.20); White Blood Count 13.5 Thou/mm3 (3.6-11.0)
[2024-03-25 06:01] LABS: Hemoglobin 8.2 g/dL (12.0-16.0)
[2024-03-25 06:45] LABS: Alanine Aminotransferase 7 U/L (10-49); Albumin, Serum 3.8 gm/dL (3.5-5.0); Albumin/Globulin Ratio 1.4 (1.2-2.2); Alkaline Phosphatase 90 U/L (46-116); Anion Gap 10 (7-16); Aspartate Amino Transferase < 10 U/L (0-34); BUN/Creatinine Ratio 10 Ratio (12-20); Bilirubin,Total 0.7 mg/dL (0.3-1.2); Blood Urea Nitrogen < 5 mg/dL (9-23); Calcium 8.6 mg/dL (8.3-10.6); Calcium (Corrected) 8.8 mg/dL (8.5-10.1); Carbon Dioxide 20.5 mMol/L (20.0-31.0); Chloride 106 mMol/L (98-107); Creatinine (Component) 0.5 mg/dL (0.6-1.3); Estimated Creatinine Clearance 152.1 mL/min (>60); Globulin 2.8 gm/dL (2.3-3.5); Glucose 76 mg/dL (74-106); Magnesium 1.6 mg/dL (1.6-2.6); Osmolality,Calculated 268 (275-295); Phosphorous 1.8 mg/dL (2.4-5.1); Potassium 3.3 mMol/L (3.4-5.1); Sodium 136 mMol/L (136-145); Total Protein 6.6 gm/dL (5.7-8.2); eGFR > 60 See Note
[2024-03-25 08:00] VITALS: BP 163/100; PULSE 99; RESP 18; TEMP 36.5; O2SAT 96
--- NOTE | 2024-03-25 09:10 | PC.SS ---
Late note 03/25/2024: SS met with patient regarding her d/c plan. Pt is alert/oriented. Pt was admitted for Pancreatitis. Pt confirmed demographic and contact information is correct on facesheet. Pt resides with and kids. 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 Pt ambulates independently without assistance or DME. Pt is ok with all ADLs. Patient?s pharmacy of choice is [facility] on [address] Pt named her , David Olivas medical decision maker if she is unable. Patient?s choice is to return home upon d/c. Pt is states she does not have an advance directive, SS offered, and pt was receptive. Pt states she followed up with PCP in February 2024 D/C plan: Return home Next of Kin: David Olivas, life partner, phone# [phone] PCP: Dr. Mario Zhou from [facility] Address: Correct on facesheet
[2024-03-25] MEDS: HYDROmorphone INJ 2 MG/ML VIAL 0.25 MG IVP (09:22)
[2024-03-25] MEDS: PANTOPRAZOLE INJ 40 MG VIAL IV ×2 (09:25→20:26)
[2024-03-25] MEDS: RINGERS LACTATED 1000 ML 1,000 ML 250 ML IV ×3 (09:26→23:45)
[2024-03-25] MEDS: NAPH,KPH MBDB 1 PACKET (1.5 GM) PO (09:32)
[2024-03-25] MEDS: ENOXAPARIN SOD INJ 40 MG/0.4 ML SYRINGE SC (09:35)
[2024-03-25] MEDS: Magnesium Sulfate 4 GM Ivpb 4 GM/50 ML BAG IV (09:36)
[2024-03-25] MEDS: POTASSIUM CHL 10 mEq IVPB 10 MEQ/100 ML BAG 100 MEQ IV (09:39)
[2024-03-25] MEDS: POTASSIUM CHL 10 mEq IVPB 10 MEQ/100 ML BAG 75 MEQ IV ×3 (11:08→13:58)
[2024-03-25 12:00] VITALS: BP 154/92; PULSE 93; RESP 17; TEMP 36.6; O2SAT 97
[2024-03-25] MEDS: SUCRALFATE SUSP 1 GM/10 ML UDC PO ×3 (12:36→20:25)
--- NOTE | 2024-03-25 13:38 | PD.RESPROC ---
Procedures Procedure Date / Time 03/25/24 7204
[2024-03-25] MEDS: HYDROcodone/APAP 10/325 TAB PO ×3 (13:53→23:51)
[2024-03-25 14:40] VITALS: BMI 35.9
[2024-03-25 16:00] VITALS: BP 158/101; PULSE 107; RESP 18; TEMP 36.6; O2SAT 98
--- NOTE | 2024-03-25 16:40 | ESPR_ITS ---
Documentation for date of: 03/25/24 Subjective Subjective Interval history: Patient seen today at the bedside found awake, alert, orientedx3. No overnight events reported. Patient still complaining of abdominal pain. Consulted GI, Dr. Machuca as patient has hx of peptic ulcers and with decrease in hemoglobin, as well as her abdominal pain began after consuming a meal. added sucralfate and started protonix 40mg bid Exam Vital Signs Temp Pulse Resp BP Pulse Ox O2 Del Method 97.9 F 107 H 18 158/101 H 98 Room Air 03/25/24 16:00 03/25/24 16:00 03/25/24 16:00 03/25/24 16:00 03/25/24 16:00 03/25/24 16:00 Narrative Exam Physical Exam GENERAL: NAD, NC/AT, responsive/cooperative. A&Ox3 HEENT: Moist mucosa. Eyes open, symmetrical, & clear CARDIO: No chest pain on palpation. Heart RRR, no obvious murmurs PULM: No noted coughing/dyspnea. Lungs CTA B/L, no R/W/R GI: Abdomen soft, nondistended, pain on palpation on all quadrants. BSx4 URO/AIRCRAFT STRUCTURAL REPAIR MECHANIC:: No further abnormalities noted. SKIN/MSK/EXT: No wounds/rashes/edema/amputations, no pain on palpation. Pedal pulses present B/L NEURO: AAOx3, no focal neuro deficits, able to move all 4 extremities Objective Labs 03/26/24 05:13 03/26/24 05:13 Labs: Laboratory Results - last 24 hr 03/25/24 05:15 WBC 13.5 H RBC 4.05 Hgb 8.2 L Hct 27.4 L MCV 68 L MCH 20.2 L MCHC 29.9 L RDW Std Deviation 57.0 H Plt Count 243 Neut % (Auto) 83 H Lymph % (Auto) 9 L [place] % (Auto) 7 Eos % (Auto) 0 Baso % (Auto) 0 Neut # (Auto) 11.2 H Lymph # (Auto) 1.2 [place] # (Auto) 0.9 H Eos # (Auto) 0.1 Baso # (Auto) 0.0 Immature Gran # (Auto) 0.08 H Absolute Nucleated RBC 0.00 Immature Gran % 1 H Nucleated RBC % 0 Sodium 136 Potassium 3.3 L Chloride 106 Carbon Dioxide 20.5 Anion Gap 10 BUN < 5 L Creatinine 0.5 L Estim Creat Clear Calc 152.1 eGFR > 60 BUN/Creatinine Ratio 10 L Glucose 76 Calculated Osmolality 268 L Calcium 8.6 Corrected Calcium 8.8 Phosphorus 1.8 L Magnesium 1.6 Total Bilirubin 0.7 AST < 10 ALT 7 L Alkaline Phosphatase 90 Total Protein 6.6 Albumin 3.8 Globulin 2.8 Albumin/Globulin Ratio 1.4 Quality Measures Quality Measures none Assessment & Plan Assessment Current Active Medications: Generic Name Dose Route Start Last Admin Trade Name Freq PRN Reason Stop Dose Admin Acetaminophen 650 mg 03/23/24 19:23 Acetaminophen 325 Mg Tablet PO 04/22/24 19:22 Q6H PRN Fever >101.5 Acetaminophen 1,000 mg 03/25/24 11:30 Acetaminophen 500 Mg Tablet PO 04/24/24 11:29 Q6HR PRN PAIN 1-6 (mild-mod Hydrocodone Bitart/Acetaminophen 1 tab 03/25/24 11:31 03/25/24 13:53 Hydrocodone/Apap 10/325 Tab PO 03/30/24 11:30 1 tab Q4HR PRN Administration PAIN SCALE 7-10 (Severe Enoxaparin Sodium 40 mg 03/24/24 09:00 03/25/24 09:35 Enoxaparin Sod Inj 40 Mg/0.4 Ml Syringe SC 04/07/24 08:59 40 mg QDAY SARAH Administration Ferrous Sulfate 325 mg 03/24/24 15:45 03/24/24 16:06 Ferrous Sulf 325 Mg Tablet PO 04/23/24 15:44 325 mg QDAY SARAH Administration Lactated Ringer's 1,000 mls @ 250 mls/hr 03/25/24 07:59 03/25/24 13:59 Lactated Ringers IV 03/26/24 07:58 Not Given .Q4H SARAH Lorazepam 0.5 mg 03/23/24 20:05 Lorazepam 2 Mg/Ml Vial IV 03/28/24 20:04 Q2HR PRN CIWA SCORE 8-13 Lorazepam 1 mg 03/23/24 20:05 Lorazepam 2 Mg/Ml Vial IV 03/28/24 20:04 Q2HR PRN CIWA SCORE 14-19 Lorazepam 2 mg 03/23/24 20:05 Lorazepam 2 Mg/Ml Vial IV 03/28/24 20:04 Q2HR PRN CIWA SCORE 20-25 Morphine Sulfate 4 mg 03/23/24 18:20 03/23/24 19:16 Morphine Sulf Inj 10 Mg/Ml Vial IVP 4 mg Q1H PRN Administration PAIN SCALE 4-10(Mod-Sev Ondansetron HCl 4 mg 03/24/24 07:53 Ondansetron Inj 2 Mg/Ml Inj 2 Ml IV 04/23/24 07:52 Q6H PRN NAUSEA OR VOMITING Protocol Pantoprazole Sodium 40 mg 03/25/24 21:00 Pantoprazole Inj 40 Mg Vial IV 04/24/24 20:59 BID SARAH Sucralfate 1 gm 03/25/24 11:30 03/25/24 12:36 Sucralfate Susp 1 Gm/10 Ml Udc PO 04/24/24 11:29 1 gm ACHS SARAH Administration Plan 38-year-old female with past medical history of gastritis/GERD, iron deficiency anemia secondary to menorrhagia, tubal ligation presents on 03/23 with acute abdominal pain radiating to the back onset on 03/22/2024. Admitted for acute pancreatitis and treated with IV fluid resuscitation, antiemetics and analgesia control. #Acute Pancreatitis #Leukocytosis #Hx of peptic ulcers most likely secondary to alcohol use, other differentials include medication induced due to ibuprofen, gallstone, hyperlipidemia(unlikely given lipid panel wnl) patient has abdominal pain radiating to the back with elevated lipase in the 1400s, leukocytosis CT abdomen pelvis shows Acute pancreatitis and active peptic disease in the duodenum In ED given morphine 4mg x2 for pain control, 1L NS bolus, Zofran 4mg x1 and tylenol 1000mg RUQ US shows Enlarged pancreatic head consistent with the patient's diagnosis of acute pancreatitis, biliary sludge, no gallstones Patient states her pain began after consumin a meal, she has severe gastritis per CT and hx of peptic ulcers - aggressive IV hydration - IV Zofran 4mg prn - Multimodal analgesia - Clear liquid diet advance as tolerated - protonix 40mg bid - GI consulted, appreciate recommendations #Alcohol use disorder Patient apparently drinks 3-4 times a week at least one 4oz tequila Low likelihood of alcoholism; presenting with ethyl alcohol <10 Last drink was this weekend 03/20-03/21 was given IV thiamine and folate x1 CIWA: 0 - CIWA protocol; precautionary - counseled on cessation of alcohol use #Sinus Tachycardia #Hypertension Patient has no history of hypertension Likely secondary to acutely ill status and pain - Will treat above and monitor vitals #Electrolyte Abnormalities - Will replete as needed #Microcytic Anemia Likely secondary to menorrhagia Has previous history of peripheral blood smears on chart On ferrous sulfate 325mg at home #Uterine Fibroids #Menorrhagia #Ovarian Cyst #Bilateral nonobstructing renal calculi As seen on previous uterine ultrasounds CT abdomen pelvis shows significantly enlarged fundus of uterus and enlarged ovaries bilateral renal calculi nonobstructing - can follow up as outpatient for pelvic ultrasound Case discussed with my senior Dr. Herbert PGY-[address] Lizz Beckham MD PGY-1 Disposition: Medsurg Fluids: LR Feeding: Clear liquid diet Thrombo prophylaxis: lovenox Gastric Ulcer prophylaxis: Pantoprazole CODE STATUS: Full code Senior resident attestation: Patient evaluated and examined at the bedside, plan of care discussed with rest of the team including my attending physician. i agree with the assessment and plan, except as noted. #Acute pancreatitis ; currently on aggressive IV fluid resuscitation, patient was on liquid diet, but unable to tolerate, complaining of worsening abdominal pain even on Jell-O and liquid diet. Abdomen continues to be soft and nondistended, but tender in the epigastrium. BISAP score 0. Chemistry panel unremarkable, normal BUN/creatinine urine output adequate. #History of opioid use: Patient has previously used Lavina's a few years ago, and had trouble weaning off opioids, currently she was concerned that she is requiring frequently high doses of Dilaudid, concerned about relapsing to opioid use disorder. Will discontinue IV Dilaudid, added Tylenol for mild pain and Lavina for severe pain only. Will wean off Lavina, as patient's condition improves. #Gastritis: CT abdomen pelvis pertinent for finding of gastritis, patient also noted epigastric pain radiating to the back which is worse after eating meals has been going on for the past few weeks. Epigastric pain on current presentation is similar to previous episodes, no change in character of pain. As patient continues to be low severity acute pancreatitis on BISAP score, despite adequate IV fluid resuscitation, unable to tolerate p.o. more than 48 hours into the clinical course, concern for alternative diagnosis like severe gastritis/duodenal ulcer is a possibility. Currently on protonix. Added sucralfate, gastroenterology consult added to evaluate for possible EGD if patient's condition does not improve and she continues to be unable to tolerate p.o. diet. Keon PGY2 Attending Provider Attestation/Addendum 38-year-old female with GERD/esophagitis/gastritis who presented on 03/23/2024 with complaints of abdominal pain radiating to the back found to have acute pancreatitis subsequently admitted for IV fluid resuscitation. Also, noted to have alcohol withdraw on CIWA. Will consult GI for EGD given history of peptic ulcer disease. I reviewed above note and agree with findings and plans. I have also personally examined the patient with medicine team and went over assessment and plan with medical team including internet merchant and resident physician.
--- NOTE | 2024-03-25 19:26 | PD.IMCONS ---
HPI Data of Consult Requesting Physician: Nila Zamudio MD Primary Care Provider: Mario Zhou MD Consult Narrative Reason for consult: Pain abdomen elevated lipase nausea vomiting History of present illness: 38 years old female comes in for evaluation to the emergency room with nausea vomiting at home history of abdominal pain along with chest pain She had an elevated lipase of 1409 WBC count of 13.3 with hemoglobin hematocrit 10.[address] scan of the abdomen pelvis showed changes in the pancreas as well as severe gastritis patient was subsequently admitted gallbladder ultrasound showed bile sludge but no stones Patient does drink moderately at home basically tequila triglycerides 85 Liver panel is normal with a total bilirubin 0.7 AST ALT 35 and 27 and alk phos of 117 cc:: cc: Nila Zamudio MD Review of Systems Review of Systems Systems Reviewed: All systems reviewed, normal except as documented Past Medical History Surgical History OTHER SURGICAL HX: Menorrhagia Uterine fibroids Chronic iron deficiency anemia Meds Home Medications and Allergies Allergies Allergy/AdvReac Type Severity Reaction Status Date / Time No Known Allergies Allergy Verified 03/23/24 16:47 Exam Vital Signs Temp Pulse Resp BP Pulse Ox O2 Del Method 97.9 F 107 H 18 158/101 H 98 Room Air 03/25/24 16:00 03/25/24 16:00 03/25/24 16:00 03/25/24 16:00 03/25/24 16:00 03/25/24 16:00 Constitutional Comments: Alert oriented Routine Respiratory Exam Comments: Normal to auscultation Routine Abdominal Exam Comments: Midepigastric tenderness Results Labs 03/25/24 05:15 03/25/24 05:15 Labs: Short CBC 03/25/24 Range/Units 05:15 WBC 13.5 H (3.6-11.0) Thou/mm3 Hgb 8.2 L (12.0-16.0) g/dL Hct 27.4 L (36.0-46.0) % Plt Count 243 (140-440) Thou/mm3 BMP 03/25/24 05:15 Sodium 136 Potassium 3.3 L Chloride 106 Carbon Dioxide 20.5 BUN < 5 L Creatinine 0.5 L Glucose 76 Calcium 8.6 Liver Function 03/25/24 Range/Units 05:15 Total Bilirubin 0.7 (0.3-1.2) mg/dL AST < 10 (0-34) U/L ALT 7 L (10-49) U/L Alkaline Phosphatase 90 (46-116) U/L Albumin 3.8 (3.5-5.0) gm/dL Assessment and Plan Additional Assessment & Plan Additional Plan: # Acute alcohol induced pancreatitis # Pain abdomen secondary to 1 and may be complicated by the in addition to peptic ulcer disease # Nausea vomiting secondary to 1 Plan Conservative management by keeping the patient n.p.o. follow amylase and lipase IV fluids Pain control Once patient improves will recommend upper endoscopy prior to discharge because of the CT scan findings Patient also advised complete abstain from alcohol Thank you very much for the opportunity to participate in the care of this patient
[2024-03-25 20:00] VITALS: BP 168/92; PULSE 97; RESP 18; TEMP 36.9; O2SAT 97
--- NOTE | 2024-03-25 20:46 | PC.NURSE ---
patient c/o 9/10 pain, current pain regimen not helping per patient. Called Dr. Dhaliwal, new orders received.
[2024-03-25] MEDS: MORPHINE SULF INJ 10 MG/ML VIAL 2 MG IVP (22:02)
[2024-03-26] VITALS (17 sets, daily range): BP systolic 144–191; BP diastolic 62–116; PULSE 82–115; RESP 18–34; TEMP 36.2–37.6; O2SAT 97–100
--- NOTE | 2024-03-26 00:41 | PC.NURSE ---
called dr. Dhaliwal regarding patient's pain, patient was given norco but patient states her pain is still a 9-10/10 in her abdomen that radiates to her back, per MD give x1 dilaudid 1 mg IVP.
[2024-03-26] MEDS: HYDROmorphone INJ 2 MG/ML VIAL 1 MG IVP (00:50)
[2024-03-26] MEDS: MORPHINE SULF INJ 10 MG/ML VIAL 2 MG IVP ×5 (03:00→23:20)
[2024-03-26] MEDS: HYDROcodone/APAP 10/325 TAB PO (04:13)
[2024-03-26] MEDS: RINGERS LACTATED 1000 ML 1,000 ML 250 ML IV (04:15)
--- NOTE | 2024-03-26 04:35 | PC.NURSE ---
notified dr. Dhaliwal due to pt's BP 160/100. Patient's pain is 6/10 now, will reassess BP in 30 minutes, will call MD if still elevated.
[2024-03-26 05:53] LABS: Basophils % (Auto) 0 % (0-2.5); Eosinophils # (Auto) 0.1 Thou/mm3 (0.0-0.5); Eosinophils % (Auto) 1 % (0-10); Hematocrit 25.2 % (36.0-46.0); Immature Granulocytes % (Auto) 1 % (0-0); Immature Granulocytes Auto 0.06 Thou/mm3 (0.00-0.00); Lymphocytes # (Auto) 1.5 Thou/mm3 (1.0-4.8); Lymphocytes % (Auto) 12 % (10-50); Mean Corpuscular HGB Conc 29.8 g/dl (31.0-37.0); Mean Corpuscular Hemoglobin 20.3 pg (25.0-35.0); Mean Corpuscular Volume 68 fL (80-100); Monocytes % (Auto) 8 % (0-12); Neutrophils # (Auto) 9.3 Thou/mm3 (1.8-7.7); Neutrophils % (Auto) 78 % (37-80); Nucleated Red Blood Cell % 0 /100 WBC (0); Platelet Count 221 Thou/mm3 (140-440); RDW Standard Deviation 57.2 fL (36.4-46.3); Red Blood Count 3.69 Miln/mm3 (4.00-5.20); White Blood Count 11.8 Thou/mm3 (3.6-11.0)
[2024-03-26 06:11] LABS: Hemoglobin 7.5 g/dL (12.0-16.0)
[2024-03-26 06:25] LABS: Alanine Aminotransferase 8 U/L (10-49); Albumin, Serum 3.6 gm/dL (3.5-5.0); Albumin/Globulin Ratio 1.3 (1.2-2.2); Alkaline Phosphatase 97 U/L (46-116); Anion Gap 8 (7-16); Aspartate Amino Transferase 15 U/L (0-34); BUN/Creatinine Ratio 10 Ratio (12-20); Bilirubin,Total 0.6 mg/dL (0.3-1.2); Blood Urea Nitrogen < 5 mg/dL (9-23); Calcium 8.5 mg/dL (8.3-10.6); Calcium (Corrected) 8.8 mg/dL (8.5-10.1); Carbon Dioxide 23.2 mMol/L (20.0-31.0); Chloride 105 mMol/L (98-107); Creatinine (Component) 0.5 mg/dL (0.6-1.3); Estimated Creatinine Clearance 152.1 mL/min (>60); Globulin 2.7 gm/dL (2.3-3.5); Glucose 86 mg/dL (74-106); Magnesium 1.9 mg/dL (1.6-2.6); Osmolality,Calculated 268 (275-295); Phosphorous 2.3 mg/dL (2.4-5.1); Potassium 3.5 mMol/L (3.4-5.1); Sodium 136 mMol/L (136-145); Total Protein 6.3 gm/dL (5.7-8.2); eGFR > 60 See Note
[2024-03-26] MEDS: SUCRALFATE SUSP 1 GM/10 ML UDC PO ×2 (07:48→21:07)
[2024-03-26] MEDS: PANTOPRAZOLE INJ 40 MG VIAL IV ×2 (08:02→21:07)
[2024-03-26] MEDS: ENOXAPARIN SOD INJ 40 MG/0.4 ML SYRINGE SC (08:05)
--- NOTE | 2024-03-26 10:46 | ESPR_ITS ---
Documentation for date of: 03/26/24 Subjective - Hospitalist Subjective Interval history: The patient continues to complain of epigastric pain. Morphine and norco provide relief however requesting Dilaudid. Review of Systems Constitutional Comments: General: Denies fevers or chills. Abdomen: Denies diarrhea, constipation, bright red blood per rectum or melena. Neurology: Denies any changes in vision, weakness or difficulty speaking. The rest of review of system is otherwise negative except what is mentioned above Exam Vital Signs Temp Pulse Resp BP Pulse Ox O2 Del Method 98.7 F 100 19 152/100 H 98 Room Air 03/26/24 08:00 03/26/24 08:00 03/26/24 08:00 03/26/24 08:00 03/26/24 08:00 03/26/24 08:00 Narrative Physical Exam: General: Alert and oriented to name, date of and place HEENT: Normocephalic, atraumatic Cardiac: Regular rate and rhythm, no murmurs Lungs: Clear to auscultation with no wheezing or crackles Abdomen: Nondistended, nontender positive bowel sounds. No guarding or rebound tenderness. Neurology: Cranial nerves II to XII intact and patient able to move all 4 extremities. Skin: No rash or edema. Objective - Hospitalist Labs Diagram: 03/26/24 05:13 03/26/24 05:13 Labs: Laboratory Results - last 24 hr 03/26/24 05:13 WBC 11.8 H RBC 3.69 L Hgb 7.5 L Hct 25.2 L MCV 68 L MCH 20.3 L MCHC 29.8 L RDW Std Deviation 57.2 H Plt Count 221 Neut % (Auto) 78 Lymph % (Auto) 12 [place] % (Auto) 8 Eos % (Auto) 1 Baso % (Auto) 0 Neut # (Auto) 9.3 H Lymph # (Auto) 1.5 [place] # (Auto) 1.0 H Eos # (Auto) 0.1 Baso # (Auto) 0.0 Immature Gran # (Auto) 0.06 H Absolute Nucleated RBC 0.00 Immature Gran % 1 H Nucleated RBC % 0 Sodium 136 Potassium 3.5 Chloride 105 Carbon Dioxide 23.2 Anion Gap 8 BUN < 5 L Creatinine 0.5 L Estim Creat Clear Calc 152.1 eGFR > 60 BUN/Creatinine Ratio 10 L Glucose 86 Calculated Osmolality 268 L Calcium 8.5 Corrected Calcium 8.8 Phosphorus 2.3 L Magnesium 1.9 Total Bilirubin 0.6 AST 15 ALT 8 L Alkaline Phosphatase 97 Total Protein 6.3 Albumin 3.6 Globulin 2.7 Albumin/Globulin Ratio 1.3 Assessment & Plan Patient Synopsis 38-year-old female with GERD/esophagitis/gastritis who presented on 03/23/2024 with complaints of abdominal pain radiating to the back found to have acute pancreatitis subsequently admitted for IV fluid resuscitation. 1. Acute pancreatitis ? Patient states that she drinks moderately at home, right upper quadrant ultrasound with no gallstones and triglycerides normal ? Likely alcoholic pancreatitis ? Continue IV fluid resuscitation and pain control. Of note, when I went to reevaluate the patient she was sleeping however on awakening she stated that she has 10 out of 10 pain and requesting for Dilaudid however I counseled her that opiate medication are very strong and can worsen her GI symptoms including nausea and vomiting and I updated her that the expectation from these opiates is to decrease the pain to a bearable level and not completely numb it away. She understands. ? Continue morphine and [place] 2. Peptic ulcer disease ? Continue IV Protonix and sucralfate ? GI on board and likely patient will need EGD 3. Alcohol withdrawal ? Patient apparently drinks 3?4 times a week at least one 4 ounce tequila daily ? On CIWA protocol ? Counseled the patient regarding abstinence 4. Normocytic anemia ? Continue ferrous sulfate 325 mg daily 5. Uterine fibroid 6. Menorrhagia ? CT abdomen and pelvis noted enlarged fundus of uterus and enlarged ovaries ? Will need outpatient gynecology workup 7. Bilateral nonobstructive renal calculi ? Will need outpatient urology workup Healthcare Maintenance: DVT prophylaxis: Bilateral SCDs, no chemical prophylaxis given peptic ulcer disease and anemia GI prophylaxis: Protonix 40 mg twice daily Diet: Regular diet however currently n.p.o. for possible EGD Lines: PIV CODE STATUS: Full code Reason for hospitalization: Acute pancreatitis and peptic ulcer disease pending EGD. Anticipate discharge in the next 24 to 48 hours Time Spent with Patient Time: Total time spent is greater than 50% in coordination of care (as documented) at patient's floor/unit and/or counseling patient: Time with patient: Greater than 35 minutes Reason for Continued Stay Reason for continued stay: further monitoring Quality Measures Quality Measures none
--- NOTE | 2024-03-26 10:47 | PC.SS ---
Follow up note: EGD by Dr. Machuca is pending. Pt will return home upon dc.
[2024-03-26] MEDS: hydrALAZINE INJ 20 MG/ML VIAL 10 MG IV ×2 (14:01→20:25)
--- NOTE | 2024-03-26 19:37 | PC.NURSE ---
Dr. Machuca's team arrived to slate picker patient for procedure via gurney.
--- NOTE | 2024-03-26 20:20 | SUR.PHASEI ---
2019 Patient arrived to recovery, report received from Patti GUTIERRES
--- NOTE | 2024-03-26 20:56 | SUR.PHASEI ---
2053 Report given to Ramesh GUTIERRES, patient meets discharge criteria from recovery, awake and talking with staff, breathing unlabored, vital signs stable, denies pain and nausea, patient eating ice chips; tolerating well 2055 Patient transported via rney back to room 369 without incident, Ramesh GUTIERRES promptly in patient room, patient able to ambulate from [facility] to bed with stand by assist, Ramesh at bedside with patient when this business writer left patients room
[2024-03-27] VITALS: BP 138/89; PULSE 116; RESP 17; TEMP 36.7; O2SAT 98
[2024-03-27] MEDS: MORPHINE SULF INJ 10 MG/ML VIAL 2 MG IVP ×2 (03:47→08:01)
[2024-03-27 04:00] VITALS: BP 145/109; PULSE 96; RESP 19; TEMP 37.1; O2SAT 99
[2024-03-27 06:39] LABS: Phosphorous 2.9 mg/dL (2.4-5.1)
[2024-03-27 08:00] VITALS: BP 153/98; PULSE 95; RESP 18; TEMP 36.3; O2SAT 98
[2024-03-27] MEDS: SUCRALFATE SUSP 1 GM/10 ML UDC PO ×2 (08:01→12:46)
[2024-03-27 08:13] LABS: Basophils % (Auto) 0 % (0-2.5); Eosinophils # (Auto) 0.1 Thou/mm3 (0.0-0.5); Eosinophils % (Auto) 0 % (0-10); Hematocrit 26.9 % (36.0-46.0); Immature Granulocytes % (Auto) 1 % (0-0); Immature Granulocytes Auto 0.13 Thou/mm3 (0.00-0.00); Lymphocytes # (Auto) 1.2 Thou/mm3 (1.0-4.8); Lymphocytes % (Auto) 9 % (10-50); Mean Corpuscular Hemoglobin 20.1 pg (25.0-35.0); Mean Corpuscular Volume 69 fL (80-100); Monocytes # (Auto) 1.3 Thou/mm3 (0.0-0.8); Monocytes % (Auto) 10 % (0-12); Neutrophils # (Auto) 9.8 Thou/mm3 (1.8-7.7); Neutrophils % (Auto) 79 % (37-80); Nucleated Red Blood Cell % 0 /100 WBC (0); Platelet Count 327 Thou/mm3 (140-440); RDW Standard Deviation 59.1 fL (36.4-46.3); Red Blood Count 3.88 Miln/mm3 (4.00-5.20); White Blood Count 12.4 Thou/mm3 (3.6-11.0)
[2024-03-27 08:16] LABS: Hemoglobin 7.8 g/dL (12.0-16.0)
[2024-03-27 08:29] LABS: Alanine Aminotransferase < 7 U/L (10-49); Albumin, Serum 3.7 gm/dL (3.5-5.0); Albumin/Globulin Ratio 1.3 (1.2-2.2); Alkaline Phosphatase 104 U/L (46-116); Anion Gap 11 (7-16); Aspartate Amino Transferase 11 U/L (0-34); BUN/Creatinine Ratio 8 Ratio (12-20); Bilirubin,Total 0.4 mg/dL (0.3-1.2); Blood Urea Nitrogen < 5 mg/dL (9-23); Calcium 8.6 mg/dL (8.3-10.6); Calcium (Corrected) 8.8 mg/dL (8.5-10.1); Carbon Dioxide 19.1 mMol/L (20.0-31.0); Chloride 107 mMol/L (98-107); Creatinine (Component) 0.6 mg/dL (0.6-1.3); Estimated Creatinine Clearance 126.7 mL/min (>60); Globulin 2.9 gm/dL (2.3-3.5); Glucose 96 mg/dL (74-106); Magnesium 1.8 mg/dL (1.6-2.6); Osmolality,Calculated 271 (275-295); Potassium 3.1 mMol/L (3.4-5.1); Sodium 137 mMol/L (136-145); Total Protein 6.6 gm/dL (5.7-8.2); eGFR > 60 See Note
[2024-03-27] MEDS: ENOXAPARIN SOD INJ 40 MG/0.4 ML SYRINGE SC (08:57)
[2024-03-27] MEDS: PANTOPRAZOLE INJ 40 MG VIAL IV (08:57)
[2024-03-27] MEDS: POTASSIUM CHLORIDE 20 mEq TABCR 40 MEQ PO (09:39)
[2024-03-27] MEDS: POLYETHYLENE GLYCOL 17 GM PACKET PO (10:32)
--- NOTE | 2024-03-27 11:30 | PC.NURSE ---
notified for pt elevated BP no new orders at the moment.
[2024-03-27 12:00] VITALS: BP 153/107; PULSE 96; RESP 17; TEMP 36.7; O2SAT 98
--- NOTE | 2024-03-27 13:51 | ESDS_ITS ---
<Statement entered by Nila Zamudio MD - 04/13/24 09:26> I reviewed above note and agree with findings and plans. I have also personally examined the patient with medicine team and went over assessment and plan with medical team including grad intern and resident physician. Planned Discharge Date 03/27/24 DS: Providers Provider Date of admission: 03/23/24 21:30 Primary care physician: Mario Zhou MD Admitting Provider: Erich Dhaliwal MD Attending Provider on Admission: Nila Zamudio MD Consults: 03/25/24 10:49 Consult to Gastroenterology Routine Comment: Consulting Provider: Bharathi Machuca Attending Provider on DC: Chele Beckham MD Discharging Provider: Chele Beckham MD DS: Diagnosis Problem List Completed Was Problem List Reviewed/Reconciled?: Yes Hospital Course Hospital Course Hospital course: 38-year-old female with past medical history of gastritis/GERD/esophagitis, iron deficiency anemia secondary to menorrhagia, tubal ligation presents on 03/23 with acute abdominal pain radiating to the back onset on 03/22/2024. Patient was admitted for acute pancreatitis. During hospital stay patient went work up for abdominal pain, was found to have Acute pancreatitis which was managed with aggressive IV fluid hydration for 48 hours. Pain was managed with opioid medications but given the patients history of opioid abuse was switched to acetaminophen and opioids only when in severe pain. There was concern of patients presentation of symptoms and her history of peptic ulcer disease, Dr. Machuca, GI specialist was consulted and recommended Endoscopy evaluation. Patient was found with gastritis, esophagitis. Patient was recommended to avoid NSAIDs and provided with pantoprazole 40mg every 12 hours. Patients presentation was also related to alcohol use, and due to patients alcohol consumptions there was concern for alcohol withdrawal for which CIWA protocol was initiated. Patient had normocytic anemia and was managed by resuming her home dose of iron supplementation. There was a finding of Uterine fibroid found on CT abdomen pelvis, was recommended to follow up with OBGYN as an outpatient. Also on same CT abdomen pelvis patient was found with Bilateral non-obstructive renal calculi for which patient was recommended to follow up with urology outpatient. Problem List: #Acute Pancreatitis #Leukocytosis #Hx of peptic ulcers #Esophagitis #Gastritis #Alcohol use disorder #Sinus Tachycardia #Hypertension #Electrolyte Abnormalities #Microcytic Anemia #Uterine Fibroids #Menorrhagia #Ovarian Cyst #Bilateral nonobstructing renal calculi #Hx of opioid abuse Case discussed with my senior Dr. Herbert PGY-[address] Lizz Beckham MD PGY-1 Senior resident attestation: Patient evaluated and examined at the bedside, plan of care discussed with rest of the team including my attending physician, except as noted. Patient at this time is medically stable for discharge. Please follow-up with your primary doctor within 5 days of discharge from the hospital. Follow-up with drawbench operator Dr. Machuca within 2 weeks of discharge from the hospital. Recommend complete alcohol abstinence. Take [id number] Tylenol for pain. Avoid taking NSAIDs/ibuprofen/Aleve/Motrin due to duodenal ulcer. In case of recurrence or worsening symptoms, please return to the emergency room. Keon PGY2 Status at Discharge Functional status at discharge: independent ambulation Overall status at discharge: patient is back to baseline Time Spent with Patient Time attestation: Total time spent providing and/or coordinating discharge services: Time spent: Greater than 30 minutes Exam Vital Signs Temp Pulse Resp BP Pulse Ox O2 Del Method O2 Flow Rate 98.0 F 96 17 153/107 H 98 Room Air 3 03/27/24 12:00 03/27/24 12:00 03/27/24 12:00 03/27/24 12:00 03/27/24 12:00 03/27/24 12:00 03/26/24 20:10 Narrative Exam Physical Exam GENERAL: NAD, NC/AT, responsive/cooperative. A&Ox3 HEENT: Moist mucosa. Eyes open, symmetrical, & clear CARDIO: No chest pain on palpation. Heart RRR, no obvious murmurs PULM: No noted coughing/dyspnea. Lungs CTA B/L, no R/W/R GI: Abdomen soft, nondistended, no pain on palpation on all quadrants. BSx4 URO/STAGE MANAGER:: No further abnormalities noted. SKIN/MSK/EXT: No wounds/rashes/edema/amputations, no pain on palpation. Pedal pulses present B/L NEURO: AAOx3, no focal neuro deficits, able to move all 4 extremities Discharge Plan Plan Patient Disposition: HOME (Self Care) Patient condition on transfer: Stable Care Plan Goals: Please follow-up with your primary doctor within 5 days of discharge from the hospital. Follow-up with drawbench operator Dr. Machuca within 2 weeks of discharge from the hospital. Recommend complete alcohol abstinence. Take [id number] Tylenol for pain. Avoid taking NSAIDs/ibuprofen/Aleve/Motrin due to duodenal ulcer. In case of worsening symptoms, please return to the emergency room. Prescriptions/Referrals Prescriptions/Med Rec: New sucralfate 100 mg/mL Suspension 1 g PO ACHS 30 Days Qty: 5 0RF pantoprazole [Protonix] 40 mg tablet,delayed release (DR/EC) 40 mg PO BID Qty: 60 0RF losartan 50 mg tablet 50 mg PO QDAY Qty: 30 0RF Continued medroxyprogesterone [Provera] 10 mg tablet 10 mg PO QDAY Qty: 10 0RF pantoprazole [Protonix] 40 mg tablet,delayed release (DR/EC) 40 mg PO QDAY Qty: 20 0RF Referrals: Mario Zhou MD [Primary Care Provider] - Patient/Caregiver Discharge Instructions Other Discharge Activity Instructions:: Please follow up with OBGYN at time of discharge with pelvic ultrasound for enlarged fundus of uterus and enlarged ovaries Education Materials: Gastric Duodenal Ulcer Ch Print Language: Korean Stand Alone Forms: Traci Award Info., Patient Portal Info Letter Discharge Order Discharge Orders: Discharge (Routine); Ordered 03/27/24 Ordered By: Chele Beckham Quality Discharge Quality Measures VTE prophylaxis
[2024-04-01 06:27] LABS: Vitamin B1 (Thiamine)* 24 nmol/L (8-30); Vitamin B6, Plasma* <2.0 ng/mL (2.1-21.7)
== END 2024-03-27 13:25 | disposition home or self-care (01) | DRG 282 ==
LOC: SERX 17:27 → SERHOLD 21:35 → S3SX 23:44
PROVIDERS: Nurse Practitioner Primary Care; Registered Nurse General Practice; Specialist; Student in an Organized Health Care Education/Training Program; Admitting Provider Internal Medicine; Emergency Provider Emergency Medicine; PCP Obstetrics & Gynecology; Visit Provider Internal Medicine
PROC: 0DB68ZX Excision of Stomach, Via Natural or Artificial Opening Endoscopic, Diagnostic (ICD-10-PCS; CPT 43239; principal; 2024-03-26 17:00)
DX: K85.90 Acute pancreatitis without necrosis or infection, unspecified (principal); I10 Essential (primary) hypertension; D50.9 Iron deficiency anemia, unspecified; D25.9 Leiomyoma of uterus, unspecified; N92.0 Excessive and frequent menstruation with regular cycle; K29.70 Gastritis, unspecified, without bleeding; N20.0 Calculus of kidney; Z87.11 Personal history of peptic ulcer disease; F10.90 Alcohol use, unspecified, uncomplicated; N83.209 Unspecified ovarian cyst, unspecified side; K21.00 Gastro-esophageal reflux disease with esophagitis, without bleeding
CPT/HCPCS: 36415; 71045; 74176; 76705; 80053; 80061; 80320; 81001; 81025; 82607; 83540; 83550; 83690; 83735; 84100; 84207; 84425; 84484; 85025; 87077; 87086; 87186; 93005; 96360; 96361; 96374; 96375; 99285; A4217; J0360; J1200; J1650; J2175; J2250; J2270; J2405; J2470; J3010; J3411; J3475; J3480; J3490; J7030; J7120; A9270; G0480

== ENCOUNTER 2024-08-24 20:48 | Emergency (ER) | payer MEDICAID, SELFPAY ==
[2024-08-24 20:49] VITALS: BMI 32.1
[2024-08-24 20:59] VITALS: BP 110/74; PULSE 124; RESP 18; TEMP 36.9; O2SAT 100
--- NOTE | 2024-08-24 21:09 | EKG_ITS ---
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
--- NOTE | 2024-08-24 21:14 | PD.EDWEAK ---
ED Weakness RME/HPI General Chief complaint: General Adult/Misc Complain Stated complaint: WEAKNESS LIGHT HEADED HX OF ANEMIA Time Seen by Provider: 08/24/24 21:08 Arrival date/time: 08/24/24 20:48 38F with history of anemia needing transfusions likely 2/2 heavy menstrual cycles presents with several days of weakness and lightheadedness. Patient is currently on her period. Patient denies CP and SOB. Limitations: no limitations Related Data Previous Rx's ?Medication ?Instructions ?Recorded medroxyprogesterone 10 mg tablet 10 mg PO QDAY #10 tabs 11/29/23 (Provera) pantoprazole 40 mg tablet,delayed 40 mg PO QDAY #20 tabs 12/07/23 release (Protonix) losartan 50 mg tablet 50 mg PO QDAY #30 tabs 03/27/24 pantoprazole 40 mg tablet,delayed 40 mg PO BID #60 tabs 03/27/24 release (Protonix) Allergies Allergy/AdvReac Type Severity Reaction Status Date / Time No Known Allergies Allergy Verified 08/24/24 20:53 Review of Systems Review of Systems Systems Reviewed: All systems reviewed, normal except as documented Constitutional Constitutional: Reports system reviewed and no additional complaints, except as documented, Denies fever(s), Denies headache(s) and Reports weakness ENT Ears, Nose, Mouth, and Throat: Denies disequilibrium and Denies headache(s) Cardiovascular Cardiovascular: Reports system reviewed and no additional complaints, except as documented, Denies chest pain and Denies dyspnea Respiratory Respiratory: Reports system reviewed and no additional complaints, except as documented, Denies cough and Denies dyspnea Gastrointestinal Gastrointestinal: Reports system reviewed and no additional complaints, except as documented, Denies abdominal pain, Denies nausea and Denies vomiting Neurologic Neurologic: Reports system reviewed and no additional complaints, except as documented, Reports as per HPI, Denies confusion, Denies disequilibrium, Denies headache(s) and Reports weakness Psychiatric Psychiatric: Denies confusion Past Medical History Past Medical History NEUROLOGIC: Negative Seizures CARDIAC: Negative Cardiac Disorders, Congestive Heart Failure or Hypertension RESPIRATORY: Negative Chronic Obstructive Pulmonary Disease (COPD) or Asthma GASTROINTESTINAL: Positive Gastrointestinal Disorders, Ulcer and Gastroesophageal Reflux Disease GENITOURINARY: Negative Genitourinary Disorders or Renal Disease REPRODUCTIVE: Positive Previous Pregnancies ENDOCRINE: Negative Diabetes Mellitus Type 1 or Diabetes Mellitus Type 2 HEMATOLOGIC: Positive Anemia; Negative Sickle Cell Disease OTHER HISTORY: Positive Blood Transfusions; Negative Autoimmune Disease, Blood Transfusion Reaction, Anesthesia Reactions or Cancer Family History FAMILY HISTORY: Negative Family Psychiatric Problems, Family Respiratory Disorders, Family Cardiac Disorders, Family Gastrointestinal Problems, Family Cancer, Family Surgery or Family Anesthesia Reaction Surgical History SURGICAL: Positive Tubal Ligation and Section Social History SMOKING STATUS: Never smoker SECOND HAND EXPOSURE: No SUBSTANCE USE: does not use ED Exam General Limitations: Present no limitations General appearance: Present alert and in no apparent distress Head Head exam: Present atraumatic Eye Eye exam: Present normal appearance, PERRL and EOMI ENT ENT exam: Present normal exam, normal oropharynx and mucous membranes moist Neck Neck exam: Present normal inspection, full ROM and trachea midline Chest Chest inspection: Present normal inspection and symmetric chest wall rise Respiratory Respiratory exam: Present normal lung sounds bilaterally Cardiovascular Cardiovascular exam: Present regular rate, normal rhythm and normal heart sounds Abdominal Exam Abdominal exam: Present soft and normal bowel sounds Extremities Exam Extremities exam: Present normal inspection and full ROM Back Exam Back exam: Present normal inspection and full ROM Neurological Exam Neurological exam: Present alert, oriented X3 and CN II-XII intact Psychiatric Psychiatric exam: Present normal affect and normal mood Skin Skin exam: Present warm, dry, intact and normal color Course Quality Measures none Orders Category Date Time Status EKG (ED ONLY) *Do not use* NOW Care 08/24/24 21:09 Completed Insert IV NOW Care 08/24/24 21:09 Completed EKG (ED Only) Stat Exams 08/24/24 21:09 Draft CBC Stat Lab 08/24/24 21:53 Completed CMP [Comprehensive Metabolic Panel] Stat Lab 08/24/24 21:53 Completed Path Review Blood Smear Stat Lab 08/24/24 21:53 Completed Type and Screen Stat Lab 08/24/24 21:53 Completed prbc [Red Blood Cells] Stat Lab 08/24/24 21:53 Completed Vital Signs Vital signs: Vital Signs Temperature 98.4 F 08/24/24 20:59 Pulse Rate 124 H 08/24/24 20:59 Respiratory Rate 18 08/24/24 20:59 Blood Pressure 110/74 08/24/24 20:59 Pulse Oximetry (%) 100 08/24/24 20:59 Oxygen Delivery Method Room Air 08/24/24 20:59 O2 at 100% on RA and WNLs Weakness MDM Narrative MDM Narrative:: 38F with history of anemia needing transfusions likely 2/2 heavy menstrual cycles presents with several days of weakness and lightheadedness. Patient is currently on her period. Patient denies CP and SOB. Physical exam reveals pale-looking female in no acute distress. Normal WOB. Patient is afebrile, calm, and alert. EKG is sinus tach of 101. HgB 6.0. CMP unremarkable. 2 units given w/o issue. Patient data External records reviewed:: [facility] previous records Clinical information provided by:: patient Social determinants that could affect healthcare access:: none Patient has the following chronic illnesses:: anemia How is presenting disease/condition affected by chronic disease/condition?: no chronic disease Evaluation data The following diagnostics were reviewed and interpreted by me:: lab results and EKG tracing(s) Lab and/or radiology exams considered but not ordered:: ordered Interpretation Summary: above Medications / Prescriptions Medications or Prescriptions considered but not ordered:: ordered Medication administrations:: above Consultations Consultation(s) initiated? (list below): No Diagnosis Weakness Differential Diagnosis: acute myocardial infarction, anemia, hypoglycemia, hypothyroidism, rhabdomyolysis, sepsis and dehydration Most likely diagnosis given after review of the tests above:: anemia Admission Indicated Admission indicated?: not indicated Admission Request Was there a request for admission?: No Disposition Plan Disposition Plan: Discharge Discharge Attestation Discharge Attestation: The patient and all family members were given an opportunity to ask questions and understood the discharge instructions. Discharge instructions specifically effects, indications for sooner follow up or return to the emergency department, and the expected course of current diagnosis. Patient condition: Stable Discharge Plan Plan Patient Disposition: HOME (Self Care) Discharge Disposition comment: Stable Prescriptions/Referrals Prescriptions/Med Rec: No Action medroxyprogesterone [Provera] 10 mg tablet 10 mg PO QDAY Qty: 10 0RF pantoprazole [Protonix] 40 mg tablet,delayed release (DR/EC) 40 mg PO BID Qty: 60 0RF losartan 50 mg tablet 50 mg PO QDAY Qty: 30 0RF pantoprazole [Protonix] 40 mg tablet,delayed release (DR/EC) 40 mg PO QDAY Qty: 20 0RF Referrals: Mario Zhou MD [Primary Care Provider] - In 1 week Problem List Clinical Impression: Anemia Patient/Caregiver Discharge Instructions Education Materials: Anemia Additional Instructions: Please follow-up with PCP/OBGYN within 24-48 hours and return immediately if symptoms worsen. Print Language: Yakut Stand Alone Forms: Patient Portal Info Letter PA/MARKETING PLANNING MANAGER Supervising Physician PA/MARKETING PLANNING MANAGER Supervising Physician: Dr. Loya
[2024-08-24 22:28] LABS: Basophils # (Auto) 0.1 Thou/mm3 (0.0-0.2); Basophils % (Auto) 1 % (0-2.5); Eosinophils % (Auto) 1 % (0-10); Immature Granulocytes % (Auto) 1 % (0-0); Immature Granulocytes Auto 0.04 Thou/mm3 (0.00-0.00); Lymphocytes # (Auto) 1.4 Thou/mm3 (1.0-4.8); Lymphocytes % (Auto) 16 % (10-50); Mean Corpuscular HGB Conc 30.2 g/dl (31.0-37.0); Mean Corpuscular Hemoglobin 21.1 pg (25.0-35.0); Mean Corpuscular Volume 70 fL (80-100); Monocytes # (Auto) 0.9 Thou/mm3 (0.0-0.8); Monocytes % (Auto) 11 % (0-12); Neutrophils # (Auto) 6.2 Thou/mm3 (1.8-7.7); Neutrophils % (Auto) 71 % (37-80); Nucleated Red Blood Cell % 0 /100 WBC (0); Platelet Count 248 Thou/mm3 (140-440); RDW Standard Deviation 46.5 fL (36.4-46.3); Red Blood Count 2.85 Miln/mm3 (4.00-5.20); White Blood Count 8.7 Thou/mm3 (3.6-11.0)
[2024-08-24 22:41] LABS: Alanine Aminotransferase 31 U/L (10-49); Alkaline Phosphatase 108 U/L (46-116); Anion Gap 11 (7-16); Aspartate Amino Transferase 53 U/L (0-34); BUN/Creatinine Ratio 16 Ratio (12-20); Bilirubin,Total 0.7 mg/dL (0.3-1.2); Blood Urea Nitrogen 11 mg/dL (9-23); Calcium 7.5 mg/dL (8.3-10.6); Calcium (Corrected) 8.3 mg/dL (8.5-10.1); Carbon Dioxide 23.3 mMol/L (20.0-31.0); Chloride 105 mMol/L (98-107); Creatinine (Component) 0.7 mg/dL (0.6-1.3); Estimated Creatinine Clearance 102.4 mL/min (>60); Glucose 126 mg/dL (74-106); Osmolality,Calculated 278 (275-295); Sodium 139 mMol/L (136-145); eGFR > 60 See Note
[2024-08-24 22:42] LABS: Hematocrit 19.9 % (36.0-46.0)
[2024-08-24 23:13] VITALS: BP 132/89; PULSE 85; RESP 15; TEMP 36.9; O2SAT 100
[2024-08-24 23:15] VITALS: BP 132/89; PULSE 84; RESP 18; TEMP 37; O2SAT 99
[2024-08-24 23:30] VITALS: BP 113/73; PULSE 76; RESP 16; TEMP 37; O2SAT 99
[2024-08-24 23:46] VITALS: BP 104/74; PULSE 77; RESP 16; TEMP 37; O2SAT 100
[2024-08-25 00:01] VITALS: BP 108/68; PULSE 68; RESP 12; TEMP 37; O2SAT 100
[2024-08-25 01:49] VITALS: BP 108/65; PULSE 97; RESP 12; TEMP 37; O2SAT 99
[2024-08-25 01:50] VITALS: BP 107/67; PULSE 70; RESP 16; TEMP 37; O2SAT 100
[2024-08-25 02:07] VITALS: BP 105/62; PULSE 98; RESP 16; TEMP 2.7; TEMP 36.8; O2SAT 99
[2024-08-25 02:22] VITALS: BP 105/69; PULSE 70; RESP 14; TEMP 37; O2SAT 99
[2024-08-25 02:23] LABS: Path Review Blood Smear Sent to Pathologist
[2024-08-25 03:57] VITALS: BP 148/97; PULSE 75; RESP 16; TEMP 37; O2SAT 99
== END 2024-08-25 04:02 | disposition home or self-care (01) ==
PROVIDERS: Physician Assistant; Emergency Provider Emergency Medicine; PCP Obstetrics & Gynecology
DX: D64.9 Anemia, unspecified (principal)
CPT/HCPCS: 36415; 80053; 85025; 86850; 86900; 86901; 86923; 93005; 99285; P9016

== ENCOUNTER 2024-08-26 00:59 | Inpatient (IN) | payer MEDICAID, SELFPAY ==
[2024-08-26] VITALS (29 sets, daily range): BP systolic 81–125; BP diastolic 52–84; PULSE 61–144; RESP 15–100; TEMP 36–37; O2SAT 92–100; BMI 32.1; BMI 31.0
--- NOTE | 2024-08-26 | XR_ITS ---
Examination: MRI pelvis with intravenous contrast. MRI pelvis without intravenous contrast. Date and time of exam: August 26, 2024 1458 hours INDICATIONS: Heavy vaginal bleeding one year, CT pelvis August 26, 2024 masslike area in the cervix poorly visualized Technique: Multiple axial, sagittal and coronal sections of the pelvis obtained. Transverse images, TR 6020, TE 107. T1 weighted transverse images, TR 582, TE 9.5. T2-weighted sagittal images, TR 4000, TE 105. T2-weighted sagittal images, TR 4000, TE 5. Coronal images, TR 4210, TE 107. Axial and coronal images are obtained post 14 cc intravenous injection, gadolinium. Findings: Uterus 8.0 x 4.1 x 4.0 cm Endometrial stripe 19 mm Cystic solid mass in the cervix, axial image 18, transverse dimension 6.2 cm with solid component 3.4 x 3.7 cm No adnexal mass noted IMPRESSION: Abnormal cystic solid mass in the cervix as above, very unusual configuration Recommend this patient return for repeat transabdominal transvaginal pelvic sonography with the radiologist in attendance, specific attention to the cervical region
--- NOTE | 2024-08-26 01:24 | EDNOTE_ITS ---
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 The patient was in the ED on 08/24/2024, with similar complaint, and was transfused 2 units of PRBC and discharged to be followed up with [facility] as an outpatient. However, patient continued to have vaginal bleeding, and started developing lightheadedness and had a ground-level fall while she was taking shower due to dizziness. She did not lose her consciousness or did not hit her head. She reported associated nausea only during the episodes of dizziness. She denied any headache, sore throat, chest pain, SOB, abdominal pain, any changes in bowel or urinary habit, or leg swelling. She also denied any fever or chills. Related Data Previous Rx's ?Medication ?Instructions ?Recorded medroxyprogesterone 10 mg tablet 10 mg PO QDAY #10 tab s 11/29/23 (Provera) pantoprazole 40 mg tablet,delayed 40 mg PO QDAY #20 ta bs 12/07/23 release (Protonix) losartan 50 mg tablet 50 mg PO QDAY #30 tabs 03/27 pantoprazole 40 mg tablet,delayed 40 mg PO BID #60 tab s 03/27/24 release (Protonix) Allergies Allergy/AdvReac Type Severity Reaction Status Date / Time No Known Allergies Allergy Verified 08/26/24 01:01 Review of Systems Review of Systems Systems Reviewed: All systems reviewed, normal except as documented Past Medical History Past Medical History NEUROLOGIC: Negative Seizures CARDIAC: Negative Cardiac Disorders, Congestive Heart Failure or Hypertension RESPIRATORY: Negative Chronic Obstructive Pulmonary Disease (COPD) or Asthma GASTROINTESTINAL: Positive Gastrointestinal Disorders, Ulcer and Gastroesophageal Reflux Disease GENITOURINARY: Negative Genitourinary Disorders or Renal Disease REPRODUCTIVE: Positive Previous Pregnancies ENDOCRINE: Negative Diabetes Mellitus Type 1 or Diabetes Mellitus Type 2 HEMATOLOGIC: Positive Anemia; Negative Sickle Cell Disease OTHER HISTORY: Positive Blood Transfusions; Negative Autoimmune Disease, Blood Transfusion Reaction, Anesthesia Reactions or Cancer Family History FAMILY HISTORY: Negative Family Psychiatric Problems, Family Respiratory Diso rders, Family Cardiac Disorders, Family Gastrointestinal Problems, Family Cancer, Family Surgery or Family Anesthesia Reaction Surgical History SURGICAL: Positive Tubal Ligation and Section Social History SMOKING STATUS: Never smoker SECOND HAND EXPOSURE: No SUBSTANCE USE: does not use ED Exam Narrative Physical exam: General: No acute distress, Alert and Oriented x 3, lethargic HEENT: Moist mucous membranes, oropharynx clear Neck: Supple, No masses, No JVD CVS: Tachycardic, No murmurs, rubs or gallops Lungs: Clear to auscultation with no accessory use, no wheeze no rhonchi Abd: Soft, mild tenderness over lower abdomen, +BS, no organomegaly Ext: No edema, warm and well perfused Skin: No rash Psych: Lethargic and tired appearing Course Quality Measures none Orders Category Date Time Status NPO after Midnight ONCE Care 08/26/24 05:28 Active Transfuse,blood/blood products NOW Care 08/26/24 01:27 Active Transfuse,blood/blood products NOW Care 08/26/24 02:53 Active Consult to Gynecology Stat Cons 08/26/24 05:30 Ordered Diet NPO after Midnight Diet 08/27/24 00:01 Active Diet Regular Diet 08/26/[address] abdomen pelvis wo con Stat Exams 08/26/24 01:52 Taken US pelvic complete Stat Exams 08/26/24 01:27 Taken CBC Stat Lab 08/26/24 01:49 Completed CMP [Comprehensive Metabolic Panel] Stat Lab 08/26/24 01:49 Completed Free T4 (Free Thyroxine) Stat Lab 08/26/24 01:49 Completed HCG,Qualitative Serum Stat Lab 08/26/24 01:49 Completed Magnesium Stat Lab 08/26/24 01:49 Completed PT [Prothrombin Time with INR] Stat Lab 08/26/24 01:49 Completed PTT [Partial Thromboplastin Time] Stat Lab 08/26/24 01:49 Completed TSH [Thyroid Stimulating Hormone] Stat Lab 08/26/24 01:49 Completed Type and Screen Stat Lab 08/26/24 01:49 Results UA, C/S IF [Urinalysis, C/S if Indicated] Stat Lab 08/26/24 04:08 Completed Urine Culture Stat Lab 08/26/24 04:08 Received prbc [Red Blood Cells] Stat Lab 08/26/24 01:49 Results Levothyroxine Sodium [Synthroid] Med 08/26/24 06:00 Active 100 mcg PO ACBR Magnesium Sulfate 2 GM Ivpb [Magnesium Sulfate Ivpb] Med 08/26/24 03:53 Active 2 gm in 50 ml IV X1 Sodium Chloride 0.9% 500 ml [Ns] 500 ml Med 08/26/24 01:26 Discontinued IV 999 mls/hr Tranexamic Acid 1,000 mg Ivpb [Tranexamic Acid Ivpb] Med 08/26/24 01:30 Discontinued 1,000 mg in 100 ml IV [id number] Tranexamic Acid 1,000 mg Ivpb [Tranexamic Acid Ivpb] Med 08/26/24 01:37 Discontinued 1,000 mg in 100 ml IV X1 Tranexamic Acid Inj Med 08/26/24 06:00 Ordered 500 mg IV TID Vital Signs Vital signs: Vital Signs Temperature 98.6 F 08/26/24 01:07 Pulse Rate 144 H 08/26/24 01:07 Respiratory Rate 16 08/26/24 01:07 Blood Pressure 85/61 L 08/26/24 01:07 Pulse Oximetry (%) 98 08/26/24 01:07 Oxygen Delivery Method Room Air 08/26/24 01:07 OB/Uterine Contractions MDM Narrative MDM Narrative:: The patient is a 38-year-old female with significant past medical history of GERD/gastritis/esophagitis, iron deficiency anemia secondary to dysfunctional uterine bleeding, tubal ligation, 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 The patient was in the ED on 08/24/2024, with similar complaint, and was transfused 2 units of PRBC and discharged to be followed up with [facility] as an outpatient. However, patient continued to have vaginal bleeding, and started developing lightheadedness and had a ground-level fall while she was taking shower due to dizziness. She did not lose her consciousness or did not hit her head. She reported associated nausea only during the episodes of dizziness. She denied any headache, sore throat, chest pain, SOB, abdominal pain, any changes in bowel or urinary habit, or leg swelling. She also denied any fever or chills. The patient's vital revealed BP 85/61, pulse 144, RR 16, temperature 98.6, saturating 98% on room air. Labs revealed white count 6.5, hemoglobin 6.0, hematocrit 18.6, MCV 74, RDW 51.7, PT 12.4, INR 1.1, APTT 20.0, chemistry panel revealed sodium 134, bicarb 19.3, calculated osmolality 266, corrected calcium 8.5, magnesium 1.5, total protein 5.3, TSH 16.6, free T40.71, UA revealed turbid urine, 2+ protein, 3+ blood, RBC 4099, WBC 29 but denied any urinary symptoms. Pelvis ultrasound and abdomen/pelvis CT prelim read was suspicious for cervical mass with differentials being cervical cancer. The patient was given 1 g tranexamic acid IV x 1, bolus normal saline 500 cc x 1, magnesium sulfate 2 g IV x 1, levothyroxine sodium 100 mcg ACBR. 2 unit PRBC has been ordered. Ground Control Approach Technician Dr Jones was consulted, recommended admitting the patient, and transfusing PRBC with goal of greater than 10, with possible hysterectomy on the morning of 08/27/2024. Patient data External records reviewed:: [facility] previous records Clinical information provided by:: patient and friend Social determinants that could affect healthcare access:: none Patient has the following chronic illnesses:: See above How is presenting disease/condition affected by chronic disease/condition?: caused by Evaluation data The following diagnostics were reviewed and interpreted by me:: lab results and radiology exam(s) Lab and/or radiology exams considered but not ordered:: None Interpretation Summary: See above Medications / Prescriptions Medications or Prescriptions considered but not ordered:: None Medication administrations:: Medication Administration History Magnesium Sulfate (Magnesium Sulfate Ivpb) 2 gm in 50 mls @ 25 mls/hr IV X1 ONE Stop: 08/26/24 05:52 Last Admin: 08/26/24 04:46 Dose: 25 mls/hr Documented By: RADHA Levothyroxine Sodium (Levothyroxine Sodium 100 Mcg Tablet) 100 mcg PO ACBR [facility] Stop: 09/25/24 05:59 Tranexamic Acid (Tranexamic Acid Inj 1,000 Mg/10 Ml Vial) 500 mg IV TID SARAH Stop: 09/25/24 05:59 Discontinued Medications Sodium Chloride (Ns) 500 mls @ 999 mls/hr IV .Q31M ONE Stop: 08/26/24 01:56 Last Infusion: 08/26/24 02:50 Dose: Infused Documented By: Admin: 08/26/24 02:17 Dose: 999 mls/hr Documented By: RADHA Tranexamic Acid (Tranexamic Acid Ivpb) 1,000 mg in 100 mls @ 200 mls/hr IV [id number] PRN PRN Reason: BLEEDING Tranexamic Acid (Tranexamic Acid Ivpb) 1,000 mg in 100 mls @ 200 mls/hr IV X1 ONE Stop: 08/26/24 02:06 Last Infusion: 08/26/24 02:50 Dose: Infused Documented By: Admin: 08/26/24 02:16 Dose: 200 mls/hr Documented By: RADHA See above Consultations Consultation(s) initiated? (list below): Yes Consultation #1 (Physician, Specialty, Details): Ground Control Approach Technician Dr Jones Consultation #2 (Physician, Specialty, Details): Hospitalist team Dr. Hanna Diagnosis OB Contractions Differential Diagnosis: other (DDx: Prerenal bleed: DUB, ruptured ectopic ) Most likely diagnosis given after review of the tests above:: Dysfunctional uterine bleeding Admission Indicated Admission indicated?: indicated Explain why admission is indicated or not indicated:: Indicated for vaginal bleeding and possible hysterectomy Admission Request Was there a request for admission?: Yes Admission Attestation Admission request attestation: Discussed case with Dr. Hanna from Hospitalist service regarding admission. Discussed patients ED course, exam findings, labs, and radiology results. The Hospitalist agrees to accept the patient for admission. Disposition Plan Disposition Plan: Admit Discharge Plan Plan Patient Disposition: Admit Acute Care w/in Hospital Prescriptions/Referrals Prescriptions/Med Rec: No Action medroxyprogesterone [Provera] 10 mg tablet 10 mg PO QDAY Qty: 10 0RF pantoprazole [Protonix] 40 mg tablet,delayed release (DR/EC) 40 mg PO BID Qty: 60 0RF losartan 50 mg tablet 50 mg PO QDAY Qty: 30 0RF pantoprazole [Protonix] 40 mg tablet,delayed release (DR/EC) 40 mg PO QDAY Qty: 20 0RF Referrals: Mario Zhou MD [Primary Care Provider] - In 1 week Problem List Clinical Impression: DUB (dysfunctional uterine bleeding), Hypothyroidism, Symptomatic anemia Patient/Caregiver Discharge Instructions Print Language: Hebrew Stand Alone Forms: Traci Award Info., Patient Portal Info Letter
--- NOTE | 2024-08-26 01:27 | XR_ITS ---
Examination: Pelvic ultrasound, transabdominal, complete Technique: Transabdominal ultrasound of the pelvis performed using grayscale imaging Date and time of exam: August 26, 2024 0207 hours INDICATION: Heavy vaginal bleeding beginning one week ago FINDINGS: Uterus 10.2 cm endometrial stripe 0.12 cm Coronary defined prominence in the cervix Right ovary 2.3 cm arterial flow Left ovary 2.1 cm arterial flow IMPRESSION: Recommend MRI pelvis follow-up, pre and postcontrast to exclude early cervical mass
--- NOTE | 2024-08-26 01:52 | XR_ITS ---
Examination: CT abdomen and pelvis without contrast. Coronal 3-D reconstructions. Sagittal 2-D reconstructions. Date and time of exam:August 26, 2024 0335 hours INDICATIONS: Severe abdominal bleeding beginning 2 days ago CTDI: vol (mGy): 9.19 DLP: (mGycm): 482 Technique: Axial images of the abdomen have been obtained, 3 mm slice thickness Intravenous contrast material has not been administered. Low dose protocols were performed. One or more of the following dose reduction techniques were used; automated exposure control, adjustment of the mA and/or KV according to patient size, use of iterative reconstruction technique. Findings: Severe diffuse fatty infiltration throughout the liver Hyperdense gallbladder Spleen is not enlarged No pancreatic or adrenal mass No renal or ureteral calculi, no hydronephrosis Aorta normal size Normal appendix No bowel obstruction Masslike area in the cervix, poorly defined Osseous structures intact IMPRESSION: Recommend hepatobiliary sonography follow-up to assess the gallbladder Recommend transvaginal transabdominal pelvic sonography to exclude cervical mass and assess the endometrium
[2024-08-26 02:16] LABS: Basophils # (Auto) 0.1 Thou/mm3 (0.0-0.2); Basophils % (Auto) 1 % (0-2.5); Eosinophils % (Auto) 1 % (0-10); Immature Granulocytes % (Auto) 1 % (0-0); Immature Granulocytes Auto 0.08 Thou/mm3 (0.00-0.00); Lymphocytes # (Auto) 1.6 Thou/mm3 (1.0-4.8); Lymphocytes % (Auto) 24 % (10-50); Mean Corpuscular HGB Conc 32.3 g/dl (31.0-37.0); Mean Corpuscular Hemoglobin 23.7 pg (25.0-35.0); Mean Corpuscular Volume 74 fL (80-100); Monocytes # (Auto) 0.5 Thou/mm3 (0.0-0.8); Monocytes % (Auto) 8 % (0-12); Neutrophils # (Auto) 4.3 Thou/mm3 (1.8-7.7); Neutrophils % (Auto) 66 % (37-80); Nucleated Red Blood Cell # 0.02 Thou/mm3 (0.00-0.00); Nucleated Red Blood Cell % 0 /100 WBC (0); Platelet Count 152 Thou/mm3 (140-440); RDW Standard Deviation 51.7 fL (36.4-46.3); Red Blood Count 2.53 Miln/mm3 (4.00-5.20); White Blood Count 6.5 Thou/mm3 (3.6-11.0)
[2024-08-26] MEDS: TRANEXAMIC ACID 1,000 MG IVPB 1,000 MG/100 ML BAG 200 MG IV (02:16)
[2024-08-26] MEDS: SODIUM CHLORIDE 0.9% 500 ML 500 ML 999 ML IV (02:17)
[2024-08-26 02:24] LABS: Hematocrit 18.6 % (36.0-46.0)
[2024-08-26 02:34] LABS: HCG,Qualitative Serum Negative
[2024-08-26 02:43] LABS: Alanine Aminotransferase 24 U/L (10-49); Albumin, Serum 2.7 gm/dL (3.5-5.0); Alkaline Phosphatase 87 U/L (46-116); Anion Gap 10 (7-16); Aspartate Amino Transferase 44 U/L (0-34); BUN/Creatinine Ratio 10 Ratio (12-20); Bilirubin,Total 0.7 mg/dL (0.3-1.2); Blood Urea Nitrogen 9 mg/dL (9-23); Calcium 7.5 mg/dL (8.3-10.6); Calcium (Corrected) 8.5 mg/dL (8.5-10.1); Carbon Dioxide 19.3 mMol/L (20.0-31.0); Chloride 105 mMol/L (98-107); Creatinine (Component) 0.9 mg/dL (0.6-1.3); Estimated Creatinine Clearance 79.6 mL/min (>60); Free T4 (Free Thyroxine) 0.71 ng/dL (0.89-1.76); Globulin 2.6 gm/dL (2.3-3.5); Glucose 103 mg/dL (74-106); Magnesium 1.5 mg/dL (1.6-2.6); Osmolality,Calculated 266 (275-295); Potassium 3.6 mMol/L (3.4-5.1); Sodium 134 mMol/L (136-145); Total Protein 5.3 gm/dL (5.7-8.2); eGFR > 60 See Note
[2024-08-26 03:23] LABS: INR 1.1 (0.9-1.3); Prothrombin Time 12.4 Seconds (9.0-12.2)
--- NOTE | 2024-08-26 03:51 | PRELIM_ITS ---
Pelvic ultrasound (transabdominal) with Doppler and wave Doppler spectral analysis. August 26, 2024 at 0207 hours Clinical history: Uterine bleeding. Technique: Real-time, grayscale, transabdominal pelvic ultrasound was performed using Duplex scanning including arterial inflow, venous outflow, color and spectral Doppler. Comparison: No prior study is available for comparison. Findings: The uterus is normal in size measuring 10.2 x 4.5 x 6.9 cm. The endometrium is unremarkable and measures 0.1 cm. Anechoic structure in the uterus measures 0.9 x 0.9 x 0.8 cm. Heterogenous uterus. Prominent cervix with questionable cervical lesion. The right ovary measures 2.3 x 1.0 x 2.1 cm and is unremarkable. The left ovary measures 2.1 x 1.4 x 2.0 cm and is unremarkable. Both ovaries demonstrate color flow and spectral waveforms on Doppler evaluation. There is no adnexal mass. There is no free fluid on the submitted images. Impression: 1. Heterogenous uterus and anechoic lesion in the uterus. Consider correlation with MRI for further evaluation. 2. Prominent cervix with questionable cervical lesion, consider correlation with MRI and pelvic exam to exclude cervical cancer or cervicitis. 3. No evidence of ovarian torsion. Report Electronically Signed By: Santiago De Luna 08/26/2024 3:51:17 AM [EST]
[2024-08-26 04:23] LABS: Collection Type, Urine Clean Catch; Squamous Epithelial Cell,Urine 0 /hpf (0-5)
[2024-08-26] MEDS: Magnesium Sulfate 2 GM Ivpb 2 GM/50 ML BAG IV (04:46)
[2024-08-26 05:07] LABS: Bilirubin,Urine Negative (Negative); Blood,Urine 3+ (Negative); Color,Urine Dark-Brown (Lt Yel-Yel); Glucose, Urine Negative (Negative); Ketones,Urine Negative (Negative); Leukocyte Esterase,Urine Positive (Negative); Nitrite,Urine Negative (Negative); PH,Urine 7.5 (5.0-7.0); Protein,Urine 2+ (Neg - Trace); RBC,Urine 4099 /hpf (0-3); Specific Gravity,Urine 1.005 (1.001-1.035); Urobilinogen,Urine Negative mg/dL (0.0-1.0); WBC,Urine 29 /hpf (0-5)
--- NOTE | 2024-08-26 05:07 | PRELIM_ITS ---
CT scan of the abdomen and pelvis without intravenous contrast (axial sections with sagittal and coronal reformats) August 26, 2024 0335 hours Clinical History: severe vaginal bleeding Comparison:US pelvis from earlier the same day and CT abdomen and pelvis dated November Findings: The uterine cervix is distended with fluid and hyperdense lesion measuring 4.6x4.3 cm, suggestive of blood clot. There is thickening of the uterine wall at the cervix with subtleparametrialfat stranding. Severe hepatic steatosis.The gallbladder, pancreas, spleen, kidneys and adrenals are unremarkable on this noncontrast study. No evidence of bowel obstruction. A moderate amount of fecal material is present in the colon.The appendix is within normal limits. There is no mesenteric or retroperitoneal adenopathy. The urinary bladder is unremarkable. There is no free fluid or free air. The osseous structures are unremarkable. The lung bases are clear. Impression: Distended uterine cervix with fluid and hyperdense lesion, suggestive of blood clot. Recommend clinical correlation and follow-up with contrast enhanced MRI to exclude undelying neoplastic process. Findings suggestive of cervicitis. Severe hepatic steatosis. Report Electronically Signed By: Alen Slaughter 08/26/2024 5:06:22 AM [EST]
[2024-08-26 05:31] LABS: Clarity,Urine Turbid (Clear/Hazy); Culture Indicated,Urine Yes
--- NOTE | 2024-08-26 05:43 | XR_ITS ---
Examination: AP chest single view TECHNIQUE: AP portable upright chest single view Date and time: 08/26/2024 0559 hours Comparison March 23, 2024 INDICATIONS: Preop hysterectomy FINDINGS: Normal heart size Lungs are clear. Osseous structures are intact. IMPRESSION: No active disease
--- NOTE | 2024-08-26 05:43 | EKG_ITS ---
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
--- NOTE | 2024-08-26 05:59 | ESCONSULT_ITS ---
DINING ROOM HOST/HOSTESS HPI Data of Consult Patient: new to practice Consult date: 08/26/24 Requesting Physician: Dr. Dane Polanco Primary Care Provider: aMrio Zhou MD Consult Narrative Reason for consult: vaginal bleeding History of present illness: Patient is a 38-year-old G [id number] presents to the ER with heavy vaginal bleeding. She has a history of x 4, the last one in 2016 with bilateral salpingectomies. This was performed by Dr. Zhou. Her other C- sections were in 2002, 2004, and 2007. The patient has been coming to the ER multiple times since May 2023 with heavy vaginal bleeding. In June 10, 2023 in the ER patient's hemoglobin was as low as a 3. She was given 4 units of blood and 5 months later in October 2023 she was back with heavy vaginal bleeding and her hemoglobin was 4 and she was again transfused 4 units of blood. The patient was most recently seen 2 days ago in the ER around August 24 with heavy vaginal bleeding, her hemoglobin was 6 she was transfused two units and sent home. She returns again with heavy vaginal bleeding. Her hemoglobin is again 6. The patient is accompanied by mother at bedside. She appears pale but otherwise answers questions appropriately. Of note her thyroid is also not functioning well. Her TSH is elevated at 16 and her free T4 is low. Patient states besides her C-sections sometime before her last baby in 2016 a doctor form [facility] took her to the operating room for what sounds like a LEEP for HPV. I do not have any results. The patient states she has not had a Pap smear in years. She states Dr. Zhou is her ROUGHENER and put her on controls to stop the bleeding but this was not helpful. He sent her to some doctor in [place] who told her she could not see her cervix on a speculum exam and put her on control pills. The patient presents with continued vaginal bleeding. She reports cramps with the bleeding. She is soaking multiple pads in an hour. She denies nausea vomiting diarrhea fevers chills abnormal discharge. She denies any new sexual contacts. 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 cc:: cc: Review of Systems Review of Systems Systems Reviewed: All systems reviewed, normal except as documented Past Medical History Past Medical History GASTROINTESTINAL: Positive Gastrointestinal Disorders (Patient had EGD and biopsies by Dr. Machuca gastritis/duodenol ulcer) REPRODUCTIVE: Positive Fibroids (1 small fibroid seen on ultrasound) and Previous Pregnancies (4 C-sections last 1 with a tubal ligation 1 miscarriage requiring a D&C) ENDOCRINE: Positive Hypothyroidism (Diagnosed on admission to ER this visit) HEMATOLOGIC: Positive Anemia (Chronic anemia from chronic vaginal bleeding) Past Medical History Comments PMH COMMENT: Patient has not had adequate gynecological care in years. No Pap smear done in her recent memory. She most likely had one in 2017 during her but none since then. She has never had a mammogram. Meds Home Medications and Allergies Allergies Allergy/AdvReac Type Severity Reaction Status Date / Time No Known Allergies Allergy Verified 08/26/24 01:01 Exam - DINING ROOM HOST/HOSTESS Vital Signs Temp Pulse Resp BP Pulse Ox O2 Del Method 98.3 F 85 18 113/79 100 Room Air 08/26/24 05:49 08/26/24 05:49 08/26/24 05:49 08/26/24 05:47 08/26/24 05:49 08/26/24 01:07 Narrative Exam Patient is alert and oriented x 3. She is pale. She is short of breath. She answers questions appropriately. Routine Abdominal Exam Abdominal: Present soft and surgical scars (Instilled skin incision well-healed) Routine Extremities Exam Comments: No significant edema or erythema Additional findings Additional findings: Speculum exam was attempted in the ER on a bedpan. The patient has large amount of blood coming out approximately 1 cup of blood passed during my exam. This was wiped away using a ring forcep and 4 x 4's . Her cervix is unable to be visualized is extremely high and in the patient's vagina. Patient did not tolerate a speculum well. She has an extremely narrow bony pelvic canal. Uterus does not feel enlarged. DINING ROOM HOST/HOSTESS - Results Labs 08/26/24 01:49 08/26/24 01:49 Labs: Short CBC 08/26/24 Range/Units 01:49 WBC 6.5 (3.6-11.0) Thou/mm3 Hgb 6.0 L* (12.0-16.0) g/dL Hct 18.6 L* (36.0-46.0) % Plt Count 152 D (140-440) Thou/mm3 BMP 08/26/24 01:49 Sodium 134 L Potassium 3.6 Chloride 105 Carbon Dioxide 19.3 L BUN 9 Creatinine 0.9 Glucose 103 Calcium 7.5 L Liver Function 08/26/24 Range/Units 01:49 Total Bilirubin 0.7 (0.3-1.2) mg/dL AST 44 H (0-34) U/L ALT 24 (10-49) U/L Alkaline Phosphatase 87 D (46-116) U/L Albumin 2.7 L (3.5-5.0) gm/dL Urine 08/26/24 Range/Units 04:08 Urine Color Dark-Brown (Lt Yel-Yel) Urine Clarity Turbid A (Clear/Hazy) Urine pH 7.5 H (5.0-7.0) Ur Specific [place] 1.005 (1.001-1.035) Urine Protein 2+ A (Neg - Trace) Urine Glucose (UA) Negative (Negative) Assessment and Plan Assessment and plan (1) Hypothyroidism: Status: Acute Assessment and plan: Admit to internal medicine. Thyroid replacement through hospitalist and internal medicine service. (2) DUB (dysfunctional uterine bleeding): Status: Acute Assessment and plan: Transfuse 4 units packed red blood cells. Recheck hemoglobin at 5 AM tomorrow. Consent for exam under anesthesia with a speculum, possible cervical biopsy. Consent for total abdominal hysterectomy. Patient signed consents in the ER. The risks of the procedure were discussed including the risk of bleeding, infection ,blood transfusion ,damage to bowel, bladder, blood vessels, other organs. Prolonged hospital stay should any of the above occur. I told the patient and her mother this is not an ideal situation and I would prefer to have a normal Pap smear on the chart prior to performing a hysterectomy. I am afraid if we send the patient home she will just come back with heavy vaginal bleeding. If for some reason once I see her cervix there appears to be some mass that could be cancer we will biopsy her cervix and await pathology. Th patient may have to be referred out in that situation. Otherwise we will plan to do a total abdominal hysterectomy. (3) Symptomatic anemia: Status: Acute Assessment and plan: Transfuse 4 units. TXA written. (4) S/P cone biopsy of cervix: Status: Acute Assessment and plan: History of HPV. Cervix could be quite scarred. Will exam cervix while in the OR and perform a biopsy if necessary. (1) Hypothyroidism Qualifiers: Hypothyroidism type: unspecified Qualified Code(s): E03.9 - Hypothyroidism, unspecified
[2024-08-26] MEDS: LEVOTHYROXINE SODIUM 100 MCG TABLET PO (06:03)
--- NOTE | 2024-08-26 06:08 | ESHP_ITS ---
Documentation for date of: 08/26/24 [facility] History of Present Illness Chief complaint: bleeding clots History of present illness: Idalia Calderon is 38 yr female with PMH of iron deficiency anemia, alcohol use disorder presenting to ED due to heavy periods causing dizziness and lightheadedness. Patient was just discharged from the ED 2 days ago after getting 2 units PRBC presenting with similar symptoms. Hemoglobin at that time that showed 6.0. Since then, patient continues to have extensive clots every time using the bathroom. Clots are bigger than quarter size and has to change her pad every 10 to 20 minutes. Last night, patient was taking a shower and getting ready for bed when she started feeling lightheaded and dizzy causing her to fall. She did not lose consciousness or hit her head. Has no dysmenorrhea. Menorrhagia started about 1 year ago. Until then, periods were regular lasting about 3 to 4 days. Now cycles will last up to one month at times. She has not had any imaging completed outpatient. Does endorse OCP use started by PCP. Patient started taking OCPs 3 months ago and stopped as she did not notice any difference. Also endorses significant weight loss of 65 pounds in the past 2 months, decreased appetite, palpitations, no nausea vomiting, no vision changes. She cannot recall age when first start16, ing menstral cycles. In ED, vitals significant for soft blood pressure 85/61, heart rate tachycardic 144, RR 16, afebrile. CBC significant for anemia with hemoglobin 6.0, hematocrit 18, MCV 74. CMP unremarkable. Magnesium 1.5, TSH 16, T4 0.71, hCG negative. Ultrasound of pelvis showed anechoic lesions possibly a blood clot, cervical lesion. CT abdomen pelvis showed severe hepatic steatosis and possible blood clots in the uterus. Radiology recommended MRI for further assesment of lesions. FISH BAILER Dr Jones was consulted. Stated that patient should be admitted and started on RBC transfusions with a goal hemoglobin of 10. Will keep patient n.p.o. starting midnight for hysterectomy on Friday morning. Patient was given Levothyroxine 100 mcg, 2 g magnesium, Zofran, 1000 mg tranexamic acid while in ED. Patient to be admitted for management of acute blood loss anemia and hysterectomy. PMH: As noted above PSH: 4 C-sections FamHx: Denies any known history of cancer, no history of blood disorder in family. 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 Denies smoking, denies drug use. Endorses drinking occasionally on social occasions. Meds: Provera Allergies: NKDA Review of Systems Review of Systems Systems Reviewed: All systems reviewed, normal except as documented Exam Vital Signs Temp Pulse Resp BP Pulse Ox O2 Del Method 98.3 F 85 18 113/79 100 Room Air 08/26/24 05:49 08/26/24 05:49 08/26/24 05:49 08/26/24 05:47 08/26/24 05:49 08/26/24 01:07 Narrative Exam General: Young female, No acute distress, cooperative HEENT: NCAT, No JVD noted. Mucosa moist. Pupils are equal and reactive to light bilaterally Cardiovascular: Normal S1 and S2. Regular rate and rhythm. Respiratory: Lungs are clear to auscultation bilaterally. No wheezing or crackles heard. Abdomen: Soft, some tenderness lower abdomen, not distended, normal bowel sounds. Skin: Warm to touch, dry, no rashes noted Musculoskeletal: No gross injuries. Able to move all 4 extremities. No pitting edema Neuro: Alert and oriented x3. No focal neuro deficits. Psych: Normal affect and mood Results: Labs 08/26/24 01:49 08/26/24 01:49 Labs: Short CBC 08/26/24 Range/Units 01:49 WBC 6.5 (3.6-11.0) Thou/mm3 Hgb 6.0 L* (12.0-16.0) g/dL Hct 18.6 L* (36.0-46.0) % Plt Count 152 D (140-440) Thou/mm3 BMP 08/26/24 01:49 Sodium 134 L Potassium 3.6 Chloride 105 Carbon Dioxide 19.3 L BUN 9 Creatinine 0.9 Glucose 103 Calcium 7.5 L Liver Function 08/26/24 Range/Units 01:49 Total Bilirubin 0.7 (0.3-1.2) mg/dL AST 44 H (0-34) U/L ALT 24 (10-49) U/L Alkaline Phosphatase 87 D (46-116) U/L Albumin 2.7 L (3.5-5.0) gm/dL Urine 08/26/24 Range/Units 04:08 Urine Color Dark-Brown (Lt Yel-Yel) Urine Clarity Turbid A (Clear/Hazy) Urine pH 7.5 H (5.0-7.0) Ur Specific [place] 1.005 (1.001-1.035) Urine Protein 2+ A (Neg - Trace) Urine Glucose (UA) Negative (Negative) Quality Measures Quality Measures none Medications Home Medications and Allergies Allergies Allergy/AdvReac Type Severity Reaction Status Date / Time No Known Allergies Allergy Verified 08/26/24 01:01 Visit Medications Acetaminophen (Acetaminophen 325 Mg Tablet) 650 mg PO Q6H PRN PRN Reason: Fever >100.3 or pain Stop: 09/25/24 06:01 Levothyroxine Sodium (Levothyroxine Sodium 100 Mcg Tablet) 100 mcg PO ACBR [facility] Stop: 09/25/24 05:59 Last Admin: 08/26/24 06:03 Dose: 100 mcg Ondansetron HCl (Ondansetron Inj 2 Mg/Ml Inj 2 Ml) 4 mg IV Q6H PRN; Protocol PRN Reason: NAUSEA OR VOMITING Stop: 09/25/24 06:01 Sennosides (Senna Tablet) 1 tab PO QDAY PRN; Protocol PRN Reason: constipation Stop: 09/25/24 06:01 Tranexamic Acid (Tranexamic Acid Inj 1,000 Mg/10 Ml Vial) 500 mg IV TID [facility] Stop: 08/27/24 05:00 Discontinued Medications Sodium Chloride (Ns) 500 mls @ 999 mls/hr IV .Q31M ONE Stop: 08/26/24 01:56 Last Infusion: 08/26/24 02:50 Dose: Infused Tranexamic Acid (Tranexamic Acid Ivpb) 1,000 mg in 100 mls @ 200 mls/hr IV [id number] PRN PRN Reason: BLEEDING Tranexamic Acid (Tranexamic Acid Ivpb) 1,000 mg in 100 mls @ 200 mls/hr IV X1 ONE Stop: 08/26/24 02:06 Last Infusion: 08/26/24 02:50 Dose: Infused Magnesium Sulfate (Magnesium Sulfate Ivpb) 2 gm in 50 mls @ 25 mls/hr IV X1 ONE Stop: 08/26/24 05:52 Last Admin: 08/26/24 04:46 Dose: 25 mls/hr Ceftriaxone Sodium/Dextrose (Rocephin/D5w 1gm Iv Premix) 1 gm in 50 mls @ 100 mls/hr IV X1 ONE Stop: 08/26/24 06:06 Assessment & Plan Plan Idalia Calderon is 38 yr female with PMH of iron deficiency anemia, alcohol use disorder presenting to ED due to heavy periods causing dizziness and lightheadedness. FISH BAILER Dr Jones was consulted. Patient to be admitted for management of acute blood loss anemia and hysterectomy. #Acute blood loss anemia #Menorrhagia History of heavy p[eriod started about 1 year ago. Until then cycles were regular. Recently had been lasting few weeks. Experiencing symptoms such as dizziness, lightheadedness due to the blood loss. Endorses heavy clots greater than quarter size and changes pads every 10 to?20 minutes. Hemoglobin 6.0, hematocrit 18, MCV [address] FISH BAIL[address] Jones was consulted. Stated that patient should be admitted and started on RBC transfusions with a goal hemoglobin of 10. Has received total of 2 units RBC while in ED. -hand riveter Dr. Jones consulted, appreciate recs -continue tranexamic acid 500 mg IV TID ? Continue RBC transfusion with a goal hemoglobin of 10 ? Planning for hysterectomy on Friday morning - N.p.o. at midnight -post transfusion HH pending #Hypothyroidism TSH 16, free T4 0.71. Denies getting any workup done in the past. She endorses palpitations and weight loss of 65 lbs in past 2 months. -started levothyroxine 100mcg in ED -follow up oupatient Health maintenance: Dispo: med tele, blood loss anemia FEN: regular DVT prophylaxis: SCDs CODE STATUS: Full code The patient's management plan was discussed with my attending physician Dr. Garcia. Carolann Hanna, PGY-1 Attending Provider Attestation/Addendum I discussed with and supervised the resident physician who took care of this patient. I agree with the assessment and plan as above. Patient is a 38-year-old female admitted for anemia secondary to menorrhagia. The patient also has hypothyroidism. PRBC requested. Plan is for hysterectomy this Friday.
[2024-08-26] MEDS: TRANEXAMIC ACID INJ 1,000 MG/10 ML VIAL 500 MG IV ×3 (06:21→21:25)
--- NOTE | 2024-08-26 06:49 | PC.NURSE ---
obgyn HERE TO SEE PT. HAD PT SIGN COSENT FOR SURG TOMORROW.
[2024-08-26] MEDS: cefTRIAXone 1,000 MG in SODIUM CHLORIDE 0.9% (Popper) 50 ML 100 MG IV (07:01)
--- NOTE | 2024-08-26 07:17 | PC.NURSE ---
REPORT CALLED TO modern and contemporary art curator. SECOND UNIT OF BLOOD IS DONE.
[2024-08-26] MEDS: ONDANSETRON INJ 2 MG/ML INJ 2 ML 4 MG IV (08:33)
[2024-08-26] MEDS: MEDRoxyPROGESTERone ACET 2.5 MG TABLET 10 MG PO (08:34)
[2024-08-26] MEDS: LOSARTAN POTASSIUM 25 MG TABLET 50 MG PO (08:34)
[2024-08-26] MEDS: PANTOPRAZOLE 40 MG TABLET PO ×2 (08:34→21:25)
[2024-08-26 09:18] LABS: Hematocrit 23.3 % (36.0-46.0)
[2024-08-26 09:34] LABS: Hemoglobin 7.8 g/dL (12.0-16.0)
--- NOTE | 2024-08-26 11:44 | PD.RESPRO ---
Documentation for date of: 08/26/24 Subjective Subjective Interval history: 08/26/2024: Overnight admission for a 38-year-old female with past medical history of uterine fibroids status post bilateral salpingectomy, HPV with LEEP procedure, alcohol use disorder presenting to the ED with acute vaginal bleeding likely secondary to fibroids. SENIOR MORTGAGE UNDERWRITER was consulted and their recommendations is to continue tranexamic acid, keep the patient n.p.o. for tentatively scheduled total abdominal hysterectomy on 08/27. Patient was also started on medroxyprogesterone and a an MRI of pelvis ordered to rule out mass. Patient is also hypothyroid as noted by TSH/T4 levels; moreover, will start patient on levothyroxine and monitor. Will transfuse the patient additional 2 units (total of 4 units) and order additional 2 units in case the patient continues to bleed. Recommendations from SENIOR MORTGAGE UNDERWRITER is to get the patient to a hemoglobin of 10. Exam Vital Signs Temp Pulse Resp BP Pulse Ox O2 Del Method O2 Flow Rate 97.2 F 81 16 99/57 L 99 Nasal Cannula 2 08/26/24 11:24 08/26/24 11:24 08/26/24 11:24 08/26/24 11:24 08/26/24 11:24 08/26/24 08:00 08/26/24 08:00 Narrative Exam Physical Exam: GENERAL: Awake, answering questions appropriately, appears stated age HEENT: NC/AT. Moist mucosa. PERRLA/EOMI. Conjunctival pallor CARDIO: Heart RRR, no obvious murmurs, no JVD. PULM: No coughing or visible SOB. Lungs CTA B/L. GI: Abdomen soft, tenderness to palpation in hypogastric region, no rebound/guarding. [place]gmi apparent SKIN/MSK/EXT: No wounds/discoloration/rashes/edema/amputations noted. +Pedal pulses present B/L. NEURO: Oriented x3, Moves extremities x4, no focal neurologic deficits noted Objective Labs 08/26/24 14:53 08/26/24 01:49 Labs: Laboratory Results - last 24 hr 08/26/24 08/26/24 08/26/24 01:49 04:08 07:42 WBC 6.5 RBC 2.53 L Hgb 6.0 L* 7.8 L D Hct 18.6 L* 23.3 L MCV 74 L MCH 23.7 L MCHC 32.3 RDW Std Deviation 51.7 H Plt Count 152 D Neut % (Auto) 66 Lymph % (Auto) 24 [place] % (Auto) 8 Eos % (Auto) 1 Baso % (Auto) 1 Neut # (Auto) 4.3 Lymph # (Auto) 1.6 [place] # (Auto) 0.5 Eos # (Auto) 0.0 Baso # (Auto) 0.1 Immature Gran # (Auto) 0.08 H Absolute Nucleated RBC 0.02 H Immature Gran % 1 H Nucleated RBC % 0 PT 12.4 H INR 1.1 APTT 20.0 L Sodium 134 L Potassium 3.6 Chloride 105 Carbon Dioxide 19.3 L Anion Gap 10 BUN 9 Creatinine 0.9 Estim Creat Clear Calc 79.6 eGFR > 60 BUN/Creatinine Ratio 10 L Glucose 103 Calculated Osmolality 266 L Calcium 7.5 L Corrected Calcium 8.5 Magnesium 1.5 L Total Bilirubin 0.7 AST 44 H ALT 24 Alkaline Phosphatase 87 D Total Protein 5.3 L Albumin 2.7 L Globulin 2.6 Albumin/Globulin Ratio 1.0 L TSH 16.60 H Free T4 0.71 L HCG, Qual Negative Ur Collection Type Clean Catch Urine Color Dark-Brown Urine Clarity Turbid A Urine pH 7.5 H Ur Specific [place] 1.005 Urine Protein 2+ A Urine Glucose (UA) Negative Urine Ketones Negative Urine Blood 3+ A Urine Nitrite Negative Urine Bilirubin Negative Urine Urobilinogen (Auto) Negative Ur Leukocyte Esterase Positive Urine RBC 4099 H Urine WBC 29 H Ur Squamous Epith Cells 0 Urine Bacteria None Ur Culture Indicated? Yes Blood Type O Positive Antibody Screen NEGATIVE Crossmatch See Detail Blood Bank Wristband ID Yes Quality Measures Quality Measures none Assessment & Plan Assessment Current Active Medications: Generic Name Dose Route Start Last Admin Trade Name Freq PRN Reason Stop Dose Admin Acetaminophen 650 mg 08/26/24 06:02 Acetaminophen 325 Mg Tablet PO 09/25/24 06:01 Q6H PRN Fever >100.3 or pain Levothyroxine Sodium 100 mcg 08/26/24 06:00 08/26/24 06:03 Levothyroxine Sodium 100 Mcg Tablet PO 09/25/24 05:59 100 mcg ACBR SARAH Administration Medroxyprogesterone Acetate 10 mg 08/26/24 09:00 08/26/24 08:34 Medroxyprogesterone Acet 2.5 Mg Tablet PO 09/25/24 08:59 10 mg QDAY SARAH Administration Ondansetron HCl 4 mg 08/26/24 06:02 08/26/24 08:33 Ondansetron Inj 2 Mg/Ml Inj 2 Ml IV 09/25/24 06:01 4 mg Q6H PRN Administration NAUSEA OR VOMITING Protocol Pantoprazole Sodium 40 mg 08/26/24 09:00 08/26/24 08:34 Pantoprazole 40 Mg Tablet PO 09/25/24 08:59 40 mg BID SARAH Administration Sennosides 1 tab 08/26/24 06:02 Senna Tablet PO 09/25/24 06:01 QDAY PRN constipation Protocol Tranexamic Acid 500 mg 08/26/24 06:00 08/26/24 06:21 Tranexamic Acid Inj 1,000 Mg/10 Ml Vial IV 08/27/24 05:00 500 mg TID SARAH Administration Plan 38 yr female with PMH of iron deficiency anemia, alcohol use disorder presenting to ED due to heavy periods causing dizziness and lightheadedness. SENIOR MORTGAGE UNDERWRITER Dr Jones was consulted. Patient to be admitted for management of acute blood loss anemia and hysterectomy. #Acute blood loss anemia #Menorrhagia #Uterine fibroids status post bilateral salpingectomy #HPV status post LEEP Differentials include: Uterine fibroid, HPV induced uterine mass History of heavy periods started about 1 year ago Experiencing symptoms such as dizziness, lightheadedness due to the blood loss. Endorses heavy clots greater than quarter size and changes pads every 10 to 20 minutes. SENIOR MORTGAGE UNDERWRITER Dr Jones was consulted. Stated that patient should be admitted and started on RBC transfusions with a goal hemoglobin of 10. Has received total of 2 units RBC while in ED. Transfusion additional 2 units of PRBC Plan: SENIOR MORTGAGE UNDERWRITER Dr. Jones consulted, appreciate recs Continue tranexamic acid 500 mg IV TID Medroxyprogesterone 10 mg p.o. daily Continue RBC transfusion with a goal hemoglobin of 10 Total abdominal hysterectomy planned tentatively for 08/27 N.p.o. at midnight Post transfusion HH pending Protonix 40 mg twice daily #Hypothyroidism TSH 16, free T4 0.71. 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 Patient not exhibiting any signs of withdrawal at this time Last drink was 1 week ago During workup, patient CT scan showed hyperdense gallbladder On examination, patient does not have any right upper quadrant tenderness or Menard sign Plan: Ultrasound gallbladder ordered Monitor for any acute changes Counseled on complete alcohol cessation Health Maintenance: Lines: PIV FEN: N.p.o. after midnight Bowel: None noted at this time GI prophylaxis: Protonix DVT prophylaxis: SCDs Dispo: med tele, blood loss anemia tentatively scheduled for total abdominal hysterectomy on 08/27 CODE STATUS: Full code Patient seen and examined with attending Dr. Sydney Zambrano, PGY-1 Attending Provider Attestation/Addendum Marisela Heredia, , attest that I was physically present for the soto portions of the service and evaluated the patient with the resident and I reviewed and discussed the case with the resident and agree with the resident's findings and plans of care as documented above Patient seen and evaluated this AM. She states that she is feeling improved. Patient has hx of fibroids causing menorrhagia. Patient reported feeling dizzy and short of breath upon presenting to ED, but symptoms have resolved since presentation. Conjunctival pallor noted on exam. Patient has been receiving tranexamic acid. She continues to have vaginal bleeding. She was unaware of her hypothyroidism prior to this admission. Will start on synthroid 112mcg as per weight based dosing. Patient will need repeat TFTs in 4-6 weeks outpatient. Plan for ALLA in AM. Goal Hgb of>10. Will transfuse 4 units of pRBCs. There will be 2 units of PRBCs on hold. Will f/u with repeat H/H after transfusion. Will place NPO after midnight.
--- NOTE | 2024-08-26 14:07 | XR_ITS ---
Examination: Abdomen sonogram, Limited Date and time of exam: August 26, 2024 1432 hours INDICATIONS: Hyperdense gallbladder on CT examination of the abdomen August 26, 2024 Technique: Real-time cho scale transabdominal sonographic images of the upper abdomen obtained. Findings: No gallstones Normal gallbladder wall Common bile duct 0.4 cm Pancreas obscured by bowel gas Hepatomegaly 20.5 cm fatty liver irregular contour Normal hepatopedal portal venous flow Patent IVC IMPRESSION: Normal gallbladder Moderate hepatomegaly fatty liver suspect primary hepatocellular disease
[2024-08-26 15:07] LABS: Hematocrit 27.1 % (36.0-46.0)
[2024-08-26] MEDS: ceFAZolin/D5W 1 GM IVPB 1 GM/50 ML BAG IV (18:29)
[2024-08-26 21:09] LABS: Hematocrit 27.9 % (36.0-46.0); Hemoglobin 9.4 g/dL (12.0-16.0)
[2024-08-27] VITALS (26 sets, daily range): BP systolic 90–117; BP diastolic 50–73; PULSE 61–85; RESP 14–98; TEMP 36.1–37.1; O2SAT 95–100
[2024-08-27 02:30] LABS: Basophils # (Auto) 0.1 Thou/mm3 (0.0-0.2); Basophils % (Auto) 1 % (0-2.5); Eosinophils # (Auto) 0.1 Thou/mm3 (0.0-0.5); Eosinophils % (Auto) 1 % (0-10); Hematocrit 26.3 % (36.0-46.0); Hemoglobin 9.4 g/dL (12.0-16.0); Immature Granulocytes % (Auto) 1 % (0-0); Immature Granulocytes Auto 0.09 Thou/mm3 (0.00-0.00); Lymphocytes # (Auto) 2.4 Thou/mm3 (1.0-4.8); Lymphocytes % (Auto) 25 % (10-50); Mean Corpuscular HGB Conc 35.7 g/dl (31.0-37.0); Mean Corpuscular Hemoglobin 28.1 pg (25.0-35.0); Mean Corpuscular Volume 79 fL (80-100); Monocytes # (Auto) 1.1 Thou/mm3 (0.0-0.8); Monocytes % (Auto) 12 % (0-12); Neutrophils # (Auto) 5.7 Thou/mm3 (1.8-7.7); Neutrophils % (Auto) 60 % (37-80); Nucleated Red Blood Cell # 0.02 Thou/mm3 (0.00-0.00); Nucleated Red Blood Cell % 0 /100 WBC (0); Platelet Count 99 Thou/mm3 (140-440); Red Blood Count 3.35 Miln/mm3 (4.00-5.20); White Blood Count 9.4 Thou/mm3 (3.6-11.0)
[2024-08-27 03:00] LABS: Alanine Aminotransferase 16 U/L (10-49); Albumin/Globulin Ratio 1.1 (1.2-2.2); Alkaline Phosphatase 63 U/L (46-116); Anion Gap 3 (7-16); Aspartate Amino Transferase 24 U/L (0-34); BUN/Creatinine Ratio 14 Ratio (12-20); Bilirubin,Total 1.1 mg/dL (0.3-1.2); Blood Urea Nitrogen 10 mg/dL (9-23); Calcium 7.2 mg/dL (8.3-10.6); Calcium (Corrected) 8.8 mg/dL (8.5-10.1); Chloride 107 mMol/L (98-107); Creatinine (Component) 0.7 mg/dL (0.6-1.3); Estimated Creatinine Clearance 100.6 mL/min (>60); Globulin 1.8 gm/dL (2.3-3.5); Glucose 113 mg/dL (74-106); Magnesium 1.8 mg/dL (1.6-2.6); Osmolality,Calculated 268 (275-295); Potassium 4.4 mMol/L (3.4-5.1); Sodium 134 mMol/L (136-145); Thyroid Stimulating Hormone 10.17 uIU/mL (0.55-4.78); Total Protein 3.8 gm/dL (5.7-8.2); eGFR > 60 See Note
[2024-08-27 03:19] LABS: Hematocrit 27.3 % (36.0-46.0); Hemoglobin 9.7 g/dL (12.0-16.0)
--- NOTE | 2024-08-27 07:34 | CHAP ---
Patient expressed gratitude for prayer before their procedure
--- NOTE | 2024-08-27 10:03 | SUR.PHASEI ---
1003 patient arrived to recovery resting in [facility], on oxygen 5L via oxy mask, breathing unlabored, vital signs stable, dressing intact to lower abdomen; prineo, telfa, gauze, medipore tape, no bleeding noted, report received from Dr. Jack and Valdemar GUTIERRES
--- NOTE | 2024-08-27 10:06 | ESOP_ITS ---
Operative Note - ENGRAVER SIGNATURE Procedure Date of procedure: 08/27/24 Procedure Performed: Exam under anesthesia, total abdominal hysterectomy Indication: Patient is a 38-year-old -0-1-4 history of x 4 last in 2016. She had a tubal ligation with that . Patient has been coming into the ER in a regular basis since 2023 with heavy vaginal bleeding. She has been followed up with her CONSTRUCTION CODE ADMINISTRATOR as an outpatient and given control pills without any significant effect. The patient has been transfused multiple times in the past year and a half. She presented to the ER on August 25 with heavy vaginal bleeding, her hemoglobin was a 6 . She was just in the ED 2 days prior and received 2 units of blood patient. Gynecology was consulted. I saw her in the ER and could not see her cervix. An ultrasound and MRI revealed some type of possible 6 cm lower uterine segment versus cervical mass. Patient was consented for exam under anesthesia biopsy of cervix for possible adenocarcinoma ,if this was not suspicious for cancer, the patient was to undergo a total abdominal hysterectomy. Pre-Op diagnosis: 1. Symptomatic anemia requiring multiple blood transfusions 2. Previous x 4 with tubal ligation 3. Menorrhagia not responsive to oral medications 4. Newly diagnosed hypothyroidism Post-Op diagnosis: Same Anesthesia type: General Procedure description: After obtaining informed consent the patient was brought back to the operating room and general anesthesia administered. She was then prepped and draped in the dorsal lithotomy position using Subhash stirrups in a normal sterile fashion. The patient was given 2 g of Ancef by anesthesia. A Donovan catheter was inserted into the patient's bladder. A speculum was inserted inserted into the patient's vagina and with some difficulty her cervix was visualized. Her cervix was extremely anterior and very high in the vaginal vault and it was difficult to visualize even when she was asleep. Her cervix appeared grossly normal with no fungating mass noted. As it was felt an adenocarcinoma could be ruled out, the patient was then reprepped and draped in the dorsal supine position in a normal sterile fashion. A Pfannenstiel skin incision was made 1 cm above her prior incisions. This was carried down to the underlying fascia and the fascia was incised in the midline. The fascial incision extended laterally using Cho scissors. The superior aspect of the fascia was grasped with Lee clamps and the underlying rectus muscles dissected off using blunt and sharp dissection, this was repeated in the inferior aspect the incision. The rectus muscles were bluntly and the peritoneum entered bluntly with the surgeon's fingers. The abdominal cavity was entered. The bowel was packed away with moist laparotomy sponges and the uterus grasped with a toothed tenaculum and elevated. The uterus appeared grossly normal. Both ovaries appeared grossly normal. There was dense adhesions of the anterior abdominal to intermediate up the uterus. The these were taken down using blunt and sharp dissection with a scalpel and Metzenbaum's. The corneal region of the uterus was grasped with a Fausto clamp and both the round and the utero-ovarian ligament were taken down using the LigaSure. This was repeated in the opposite side of the uterus .the uterine arteries were skeletonized using Metzenbaums and ligated on both sides using the LigaSure. Care was taking to avoid both the bladder and ureters bilaterally. Again the adhesions were taken down anteriorly and the bladder carefully avoided. The uterus was truncated at the level of the internal cerv ical os and handed off the operating field. This was actually opened and appeared thick-walled but otherwise grossly normal. The cervical stump within was then grasped with a toothed tenaculum and the remainder of the bladder dissected down anteriorly using blunt and sharp dissection. Curved Cho's were placed on either side of the cervix at the level of the external os in the vagina and the cervical stump transected using Munir scissors. The cuff was then closed using interrupted [id number] sutures of 0 Vicryl. Copious irrigation was carried out in the pelvis and all pedicles reexamined and noted be hemostatic. Some Surgicel hemostatic powder was placed across the cuff to obtain excellent hemostasis. All laparotomy sponges were removed from the patient's abdomen the count found to be correct prior to closing. The muscle could not be closed secondary to tearing. The fascia was then closed with 0 Vicryl in a running fashion. The subcutaneous tissues were irrigated found to hemostatic these were reapproximated using 3 layers of 3-0 plain. The skin was closed with a subcuticular suture of 4-0 Monocryl. The patient tolerated the procedure well, sponge, lap, instrument, and needle counts were found to be correct x 2. The patient went to the recovery area awake and in stable condition. Pathology was cervix and uterus. Fluids: crystalloid Fluid amount (mL): 1,200 Urine output (mL): 100 Specimen: uterus Implants: None Estimated blood loss (ml): 150 Findings: Dense adhesions of the lower uterine segment to anterior abdominal wall. Thick-walled uterus. Cervix appeared grossly normal. No discrete myomas seen. Normal ovaries bilaterally. Ligated fallopian tubes with very little fallopian tube present bilaterally. Complications: none Narrative: Patient also received TXA, and 1 unit of blood intraoperatively Surgical staff Operation Date: 08/27/24 07:30 Case Staff Anesthesiologist: Bridger Jack dental ceramist assistant Dr. Ethan Black Diagnosis Discharge Diagnosis (1) Symptomatic anemia: Status: Acute Problem details: Patient is status post multiple blood transfusions this admission. So for think she has received 7 units of blood (2) Menorrhagia, premenopausal: Status: Acute Problem details: Status post total abdominal hysterectomy Problem List Completed Was Problem List Reviewed/Reconciled?: Yes
--- NOTE | 2024-08-27 10:16 | PC.SS ---
Idalia Calderon is a 38-year-old female admitted to [place] for Vaginal Bleeding. SS conducted bedside visit with the pt but she was out of room in surgery. Therefore, SS contacted her Life Partner, David Olivas [phone], no answer. VM left. SS in attempt to complete initial contacted her mother Krystal Mobley [phone], Krystal confirmed demographic information. She identifies herself as the pt surrogate decision maker. Pt resides at home with her life partner. Pt is independent with all ADLs, no need for any source of DME. Pts PCP is Dr. Zhou, and pharmacy of choice is [facility]. Pt will return home upon DC and [facility] will provide transportation. No further needs identified at this time. DC plan: Home DM: Mother- Krystal
[2024-08-27] MEDS: HYDROmorphone INJ 2 MG/ML VIAL 0.5 MG IVP (10:33)
[2024-08-27] MEDS: RINGERS LACTATED 1000 ML 1,000 ML 125 ML IV ×2 (10:51→18:35)
[2024-08-27] MEDS: HYDROmorphone 1 MG/ML PCA SYRINGE 30ML PCA (11:06)
--- NOTE | 2024-08-27 11:30 | SUR.PHASEI ---
1122 Report given to Cece RN, patient meets discharge criteria from recovery, resting comfortably in gurney, breathing unlabored, vital signs stable, per patient her pain is improving-CUSTOM FURRIER in place for patient, dressing intact; no bleeding noted, mckeon catheter in place draining to gravity, eating ice chips; tolerating well. 1130 Patient transported via gurney to room 352 without incident.
[2024-08-27] MEDS: NAPH,KPH MBDB 1 PACKET (1.5 GM) PO (12:12)
--- NOTE | 2024-08-27 13:12 | PC.SS ---
Rounding: SX today with Dr. Jones, on DIRECTOR CLINICAL RESEARCH for pain control. Will DC home upon DC.
--- NOTE | 2024-08-27 15:15 | ESPR_ITS ---
<Statement entered by Nila Zamudio MD - 09/01/24 15:13> I reviewed above note and agree with findings and plans. I have also personally examined the patient with medicine team and went over assessment and plan with medical team including international editorial producer and resident physician. Documentation for date of: 08/27/24 Subjective Subjective Interval history: Patient was seen and examined at bedside this AM. Hb improved overnight from 9.0 -> 9.7 post transfusions of total of 4 units. PERSONNEL SECURITY ASSISTANT was consulted and their recommendations is to continue tranexamic acid, and keep NPO tentatively. She underwent successful hysterectomy today 08/[address] Jones It Security Engineer for acute vaginal bleeding secondary to fibroids. Patient was partially under sedation when returned to room. Will control pain with PRNs Anticipate discharge in 48 hours. Exam Vital Signs Temp Pulse Resp BP Pulse Ox O2 Del Method O2 Flow Rate 97.8 F 68 21 H 98/68 95 Nasal Cannula 1 08/27/24 12:00 08/27/24 12:00 08/27/24 12:00 08/27/24 12:00 08/27/24 12:00 08/27/24 12:00 08/27/24 12:00 Narrative Exam Constitutional Alert, oriented x0, sedated. Responsive to stimuli. HEENT Vision grossly intact. Patent nares. Trachea midline. Conjunctival pallor Respiratory Chest normal on inspection and clear to auscultation bilaterally. Cardiovascular S1 and S2 audible, RRR. No murmurs or carotid bruit. No gross JVD. Abdominal Soft, BS +, s/p total abdo hysterectomy. Wound intact, clean dressing. Genitourinary No bladder tenderness, no flank pain. Normal to palpation. Musculoskeletal Extremities tone within normal limits. No LE edema. Neurological CN II - XII grossly intact. Extremity motor and sensation grossly intact. Skin Warm, dry and intact. No apparent lesions. Objective Labs 08/27/24 03:09 08/27/24 02:19 Labs: Laboratory Results - last 24 hr 08/26/24 08/26/24 08/26/24 01:49 14:53 20:47 WBC RBC Hgb 9.0 L 9.4 L Hct 27.1 L 27.9 L MCV MCH MCHC RDW Std Deviation Plt Count Neut % (Auto) Lymph % (Auto) [place] % (Auto) Eos % (Auto) Baso % (Auto) Neut # (Auto) Lymph # (Auto) [place] # (Auto) Eos # (Auto) Baso # (Auto) Immature Gran # (Auto) Absolute Nucleated RBC Immature Gran % Nucleated RBC % Sodium Potassium Chloride Carbon Dioxide Anion Gap BUN Creatinine Estim Creat Clear Calc eGFR BUN/Creatinine Ratio Glucose Calculated Osmolality Calcium Corrected Calcium Phosphorus Magnesium Total Bilirubin AST ALT Alkaline Phosphatase Total Protein Albumin Globulin Albumin/Globulin Ratio TSH Free T4 Blood Type O Positive Antibody Screen NEGATIVE Crossmatch See Detail Blood Bank Wristband ID Yes 08/27/24 08/27/24 02:19 03:09 WBC 9.4 D RBC 3.35 L Hgb 9.4 L 9.7 L Hct 26.3 L 27.3 L MCV 79 L MCH 28.1 MCHC 35.7 RDW Std Deviation 47.0 H Plt Count 99 L D Neut % (Auto) 60 Lymph % (Auto) 25 [place] % (Auto) 12 Eos % (Auto) 1 Baso % (Auto) 1 Neut # (Auto) 5.7 Lymph # (Auto) 2.4 [place] # (Auto) 1.1 H Eos # (Auto) 0.1 Baso # (Auto) 0.1 Immature Gran # (Auto) 0.09 H Absolute Nucleated RBC 0.02 H Immature Gran % 1 H Nucleated RBC % 0 Sodium 134 L Potassium 4.4 D Chloride 107 Carbon Dioxide 24.0 Anion Gap 3 L BUN 10 Creatinine 0.7 Estim Creat Clear Calc 100.6 eGFR > 60 BUN/Creatinine Ratio 14 Glucose 113 H Calculated Osmolality 268 L Calcium 7.2 L Corrected Calcium 8.8 Phosphorus 2.0 L Magnesium 1.8 Total Bilirubin 1.1 AST 24 ALT 16 Alkaline Phosphatase 63 D Total Protein 3.8 L Albumin 2.0 L D Globulin 1.8 L Albumin/Globulin Ratio 1.1 L TSH 10.17 H D Free T4 0.80 L Blood Type Antibody Screen Crossmatch Blood Bank Wristband ID Quality Measures Quality Measures none Assessment & Plan Assessment Current Active Medications: Generic Name Dose Route Start Last Admin Trade Name Freq PRN Reason Stop Dose Admin Acetaminophen 650 mg 08/26/24 06:02 Acetaminophen 325 Mg Tablet PO 09/25/24 06:01 Q6H PRN Fever >100.3 or pain Protocol Hydromorphone HCl 0 mg 08/27/24 10:30 08/27/24 11:06 Hydromorphone 1 Mg/Ml Honey Processor Syringe 30ml PLATE PAINTER 09/01/24 10:29 30 mg UD SARAH Administration Protocol Lactated Ringer's 1,000 mls @ 125 mls/hr 08/27/24 10:15 08/27/24 10:51 Lactated Ringers IV 09/26/24 10:14 125 mls/hr .Q8H SARAH Administration Ketorolac Tromethamine 30 mg 08/27/24 10:01 Ketorolac Inj 30 Mg/Ml Vial IVP 09/01/24 10:00 Q6HR PRN PAIN Protocol Levothyroxine Sodium 112 mcg 08/27/24 06:00 08/27/24 05:12 Levothyroxine Sodium 112 Mcg Tablet PO 09/26/24 05:59 Not Given ACBR SARAH Medroxyprogesterone Acetate 10 mg 08/26/24 09:00 08/27/24 09:00 Medroxyprogesterone Acet 2.5 Mg Tablet PO 09/25/24 08:59 Not Given QDAY SARAH Ondansetron HCl 4 mg 08/27/24 10:05 Ondansetron Inj 2 Mg/Ml Inj 2 Ml IV 09/26/24 10:04 Q6HR PRN NAUSEA OR VOMITING Protocol Pantoprazole Sodium 40 mg 08/26/24 09:00 08/27/24 09:00 Pantoprazole 40 Mg Tablet PO 09/25/24 08:59 Not Given BID SARAH Sennosides 1 tab 08/26/24 06:02 Senna Tablet PO 09/25/24 06:01 QDAY PRN constipation Protocol Plan Ms Calderon is a 38 yr female with PMH of iron deficiency anemia, alcohol use disorder presenting to ED due to heavy periods causing dizziness and lightheadedness. PERSONNEL SECURITY ASSISTANT Dr Jones was consulted. Patient to be admitted for management of acute blood loss anemia and hysterectomy. Acute blood loss anemia Secondary to Menorrhagia, refractory to Tranexemic acid Uterine fibroids s/p hysterectomy on 08/27 HPV status post LEEP Differentials include: Uterine fibroid, HPV induced uterine mass History of heavy periods started about 1 year ago. Patient has hx of fibroids causing menorrhagia. Experiencing symptoms such as dizziness, lightheadedness. Endorses heavy clots greater than quarter size and changes pads every 10 to 20 minutes. PERSONNEL SECURITY ASSISTANT Dr Jones was consulted. Stated that patient should be admitted and started on RBC transfusions with a goal hemoglobin of 10. 5/ : Has received total of 2 units RBC while in ED + Transfusion additional 2 units of PRBC 08/27 : Hb improved overnight from 9.0 -> 9.7 post transfusions of total of 4 units. Plan: - PERSONNEL SECURITY ASSISTANT Dr. Jones consulted, appreciate recommendations. Will proceed with hysterectomy today. - HOLD tranexamic acid 500 mg IV TID - On Medroxyprogesterone 10 mg p.o. daily - On Protonix 40 mg twice daily - NPO -> started CLD as tolerated, will advance as per It Security Engineer Hypothyroidism TSH 16, free T4 0.71. Patient denies any prior history of hypothyroidism Plan: - Will start on synthroid 112mcg as per weight based dosing. 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 Patient not exhibiting any signs of withdrawal at this time Last drink was 1 week ago During workup, patient CT scan showed hyperdense gallbladder On examination, patient does not have any right upper quadrant tenderness or Menard sign Plan: - Ultrasound gallbladder ordered - Monitor for any acute changes - Counseled on complete alcohol cessation Health Maintenance: Dispo: med tele, s/p total abdominal hysterectomy on 08/27 Lines: PIV FEN: CLD -> will advance as tolerated GI prophylaxis: Protonix DVT prophylaxis: SCDs CODE STATUS: Full code Plan of care discussed with attending Dr Zamudio, - Grant Yoder M.D. PGY2 Disclaimer: Minor errors in proof reader may be present as this note was dictated using voice recognition software. Attending Provider Attestation/Addendum
[2024-08-27] MEDS: PANTOPRAZOLE 40 MG TABLET PO (20:30)
[2024-08-28] VITALS (13 sets, daily range): BP systolic 96–137; BP diastolic 58–88; PULSE 63–94; RESP 13–99; TEMP 36.1–37.2; O2SAT 95–98
[2024-08-28] MEDS: ACETAMINOPHEN 325 MG TABLET 650 MG PO ×2 (00:16→06:13)
[2024-08-28] MEDS: RINGERS LACTATED 1000 ML 1,000 ML 125 ML IV (02:59)
[2024-08-28] MEDS: LEVOTHYROXINE SODIUM 112 MCG TABLET PO (06:13)
[2024-08-28 06:23] LABS: Basophils % (Auto) 0 % (0-2.5); Eosinophils % (Auto) 0 % (0-10); Hematocrit 30.5 % (36.0-46.0); Hemoglobin 9.9 g/dL (12.0-16.0); Immature Granulocytes % (Auto) 1 % (0-0); Immature Granulocytes Auto 0.15 Thou/mm3 (0.00-0.00); Lymphocytes # (Auto) 1.9 Thou/mm3 (1.0-4.8); Lymphocytes % (Auto) 11 % (10-50); Mean Corpuscular HGB Conc 32.5 g/dl (31.0-37.0); Mean Corpuscular Hemoglobin 27.6 pg (25.0-35.0); Mean Corpuscular Volume 85 fL (80-100); Monocytes # (Auto) 1.6 Thou/mm3 (0.0-0.8); Monocytes % (Auto) 9 % (0-12); Neutrophils # (Auto) 13.7 Thou/mm3 (1.8-7.7); Neutrophils % (Auto) 79 % (37-80); Nucleated Red Blood Cell # 0.02 Thou/mm3 (0.00-0.00); Nucleated Red Blood Cell % 0 /100 WBC (0); Platelet Count 144 Thou/mm3 (140-440); RDW Standard Deviation 52.8 fL (36.4-46.3); Red Blood Count 3.59 Miln/mm3 (4.00-5.20); White Blood Count 17.4 Thou/mm3 (3.6-11.0)
[2024-08-28 06:58] LABS: Alanine Aminotransferase 16 U/L (10-49); Alkaline Phosphatase 67 U/L (46-116); Anion Gap 7 (7-16); Aspartate Amino Transferase 43 U/L (0-34); BUN/Creatinine Ratio 14 Ratio (12-20); Bilirubin,Total 1.4 mg/dL (0.3-1.2); Blood Urea Nitrogen 10 mg/dL (9-23); Calcium 7.1 mg/dL (8.3-10.6); Calcium (Corrected) 8.7 mg/dL (8.5-10.1); Carbon Dioxide 23.4 mMol/L (20.0-31.0); Chloride 109 mMol/L (98-107); Creatinine (Component) 0.7 mg/dL (0.6-1.3); Estimated Creatinine Clearance 100.6 mL/min (>60); Globulin 2.1 gm/dL (2.3-3.5); Glucose 89 mg/dL (74-106); Osmolality,Calculated 275 (275-295); Phosphorous 3.2 mg/dL (2.4-5.1); Potassium 4.8 mMol/L (3.4-5.1); Sodium 139 mMol/L (136-145); Total Protein 4.1 gm/dL (5.7-8.2); eGFR > 60 See Note
[2024-08-28] MEDS: PANTOPRAZOLE 40 MG TABLET PO ×2 (08:40→20:56)
[2024-08-28] MEDS: HYDROcodone/APAP 5/325 TABLET 1 TAB PO ×3 (08:41→21:08)
--- NOTE | 2024-08-28 10:46 | ESPR_ITS ---
<Statement entered by Nila Zamudio MD - 09/02/24 16:23> I reviewed above note and agree with findings and plans. I have also personally examined the patient with medicine team and went over assessment and plan with medical team including architect intern and resident physician. Documentation for date of: 08/28/24 Subjective Subjective Interval history: 08/28/2024: No acute overnight events to report. Patient is postop day 1 from total abdominal hysterectomy. Patient seen and examined in hospital bed reporting mild abdominal tenderness; however, denies having any concerning cardiac symptoms at this time such as chest pain, shortness of breath, palpitations or any dizziness. Will contact MEN'S GOLF COACH for recommendations regarding patient's discharge status. Will continue to monitor for any acute changes and advance diet as tolerated. Exam Vital Signs Temp Pulse Resp BP Pulse Ox O2 Del Method O2 Flow Rate 97.4 F 81 17 112/71 98 Room Air 1 08/28/24 08:00 08/28/24 08:00 08/28/24 08:00 08/28/24 08:00 08/28/24 08:00 08/28/24 08:00 08/28/24 04:53 Narrative Exam Physical Exam: GENERAL: Awake, answering questions appropriately, appears stated age HEENT: NC/AT. Moist mucosa. PERRLA/EOMI. Conjunctival pallor CARDIO: Heart RRR, no obvious murmurs, no JVD. PULM: No coughing or visible SOB. Lungs CTA B/L. GI: Abdomen soft, tenderness to palpation diffusely with abdominal binder on. Borborygmi apparent SKIN/MSK/EXT: No wounds/discoloration/rashes/edema/amputations noted. +Pedal pulses present B/L. NEURO: Oriented x3, Moves extremities x4, no focal neurologic deficits noted Objective Labs 08/28/24 05:15 08/28/24 05:15 Labs: Laboratory Results - last 24 hr 08/26/24 08/28/24 01:49 05:15 WBC 17.4 H D RBC 3.59 L Hgb 9.9 L Hct 30.5 L MCV 85 MCH 27.6 MCHC 32.5 RDW Std Deviation 52.8 H Plt Count 144 D Neut % (Auto) 79 Lymph % (Auto) 11 [place] % (Auto) 9 Eos % (Auto) 0 Baso % (Auto) 0 Neut # (Auto) 13.7 H Lymph # (Auto) 1.9 [place] # (Auto) 1.6 H Eos # (Auto) 0.0 Baso # (Auto) 0.0 Immature Gran # (Auto) 0.15 H Absolute Nucleated RBC 0.02 H Immature Gran % 1 H Nucleated RBC % 0 Sodium 139 Potassium 4.8 Chloride 109 H Carbon Dioxide 23.4 Anion Gap 7 BUN 10 Creatinine 0.7 Estim Creat Clear Calc 100.6 eGFR > 60 BUN/Creatinine Ratio 14 Glucose 89 Calculated Osmolality 275 Calcium 7.1 L Corrected Calcium 8.7 Phosphorus 3.2 Total Bilirubin 1.4 H AST 43 H ALT 16 Alkaline Phosphatase 67 Total Protein 4.1 L Albumin 2.0 L Globulin 2.1 L Albumin/Globulin Ratio 1.0 L Blood Type O Positive Antibody Screen NEGATIVE Crossmatch See Detail Blood Bank Wristband ID Yes Quality Measures Quality Measures none Assessment & Plan Assessment Current Active Medications: Generic Name Dose Route Start Last Admin Trade Name Freq PRN Reason Stop Dose Admin Hydrocodone Bitart/Acetaminophen 1 tab 08/28/24 07:02 08/28/24 08:41 Hydrocodone/Apap 5/325 Tablet PO 09/02/24 07:01 1 tab Q4HR PRN Administration PAIN SCALE 4-6 (moderate) Hydrocodone Bitart/Acetaminophen 2 tab 08/28/24 07:02 Hydrocodone/Apap 5/325 Tablet PO 09/02/24 07:01 Q6HR PRN PAIN SCALE 7-10 (Severe Ketorolac Tromethamine 30 mg 08/28/24 12:00 Ketorolac Inj 30 Mg/Ml Vial IVP 09/02/24 11:59 Q6HR SARAH Lactulose 10 gm 08/28/24 14:00 Lactulose Syrup 20 Gm/30 Ml Udc PO 09/27/24 13:59 TID SARAH Levothyroxine Sodium 112 mcg 08/27/24 06:00 08/28/24 06:13 Levothyroxine Sodium 112 Mcg Tablet PO 09/26/24 05:59 112 mcg ACBR SARAH Administration Ondansetron HCl 4 mg 08/27/24 10:05 Ondansetron Inj 2 Mg/Ml Inj 2 Ml IV 09/26/24 10:04 Q6HR PRN NAUSEA OR VOMITING Protocol Pantoprazole Sodium 40 mg 08/26/24 09:00 08/28/24 08:40 Pantoprazole 40 Mg Tablet PO 09/25/24 08:59 40 mg BID SARAH Administration Sennosides 1 tab 08/26/24 06:02 Senna Tablet PO 09/25/24 06:01 QDAY PRN constipation Protocol Plan 38 yr female with PMH of iron deficiency anemia, alcohol use disorder presenting to ED due to heavy periods causing dizziness and lightheadedness. MEN'S GOLF COACH Dr Jones was consulted. Patient to be admitted for management of acute blood loss anemia and hysterectomy. #Acute blood loss anemia Secondary to #Menorrhagia, refractory to Tranexemic acid #Uterine fibroids s/p hysterectomy on 08/27, postop day 1 #HPV status post LEEP #Leukocytosis, likely reactive Differentials include: Uterine fibroid, HPV induced uterine mass History of heavy periods started about 1 year ago. Patient has hx of fibroids causing menorrhagia. Experiencing symptoms such as dizziness, lightheadedness. Endorses heavy clots greater than quarter size and changes pads every 10 to 20 minutes[address] MEN'S GOLF COACH [address] Jones was consulted. Stated that patient should be admitted and started on RBC transfusions with a goal hemoglobin of 10. 08/26 : Has received total of 2 units RBC while in ED + Transfusion additional 2 units of PRBC 08/27 : Hb improved overnight from 9.0 -> 9.7 post transfusions of total of 4 units. 08/28: Hemoglobin stable; patient has leukocytosis likely reactive secondary to surgery Plan: MEN'S GOLF COACH Dr. Jones consulted, appreciate recommendations. Will proceed with hysterectomy today. CLD as tolerated, will advance as per Hat Binder Encourage ambulation Incentive spirometer Multimodal pain management Discontinued Donovan catheter Monitor leukocytosis with morning labs #Hypothyroidism TSH 16, free T4 0.71. Patient denies any prior history of hypothyroidism Plan: Continue synthroid 112mcg as per weight based dosing. 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 #Hyperdense gallbladder Patient not exhibiting any signs of withdrawal at this time Last drink was 1 week ago During workup, patient CT scan showed hyperdense gallbladder On examination, patient does not have any right upper quadrant tenderness or Menard sign Ultrasound gallbladder shows normal gallbladder with moderate hepatomegaly secondary to NAFLD Plan: Monitor for any acute changes Counseled on complete alcohol cessation Hospital Management: Dispo: med tele, postop day 1 from total abdominal hysterectomy Lines: PIV FEN: CLD -> will advance as tolerated GI prophylaxis: Protonix DVT prophylaxis: SCDs CODE STATUS: Full code Patient seen and examined with attending Dr. Lizz Zambrano, PGY-1
--- NOTE | 2024-08-28 11:18 | ESPR_ITS ---
Documentation for date of: 08/28/24 INSTRUCTIONAL SUPPORT SERVICES DIRECTOR Subjective Subjective Interval history: Patient doing well overall. Pain is controlled. She has not yet ambulated yet- plan is to try after lunch. Donovan removed recently, awaiting due to void. Tolerating regular diet without nausea/vomiting. Passing gas. No fevers/chills, no CP/SOB. Exam Vital Signs Temp Pulse Resp BP Pulse Ox O2 Del Method O2 Flow Rate 97.4 F 73 18 112/71 98 Room Air 1 08/28/24 08:00 08/28/24 11:10 08/28/24 11:10 08/28/24 08:00 08/28/24 08:00 08/28/24 08:00 08/28/24 04:53 Narrative Exam General: well developed, well nourished, no acute distress, conversant Cardiac: normal heart rate Lungs: breathing without distress Abdomen: soft, non-tender, no rebound or guarding, outer dressing removed, pfannenstiel incision covered by dry/clean/intact prineo bandage. Incision well reapproximated. No erythema, drainage or induration. There is a 1cm by 3cm blister a few cm above the left aspect of the incision that patient endorses is related to having a heating pad on the area after surgery- the area is clean. Extremities: no pain with palpation of calves Urinary Catheter Management Cath placed during this visit: no INSTRUCTIONAL SUPPORT SERVICES DIRECTOR - PN: Obj Data Labs 08/28/24 05:15 08/28/24 05:15 Labs: Laboratory Results - last 24 hr 08/26/24 08/28/24 01:49 05:15 WBC 17.4 H D RBC 3.59 L Hgb 9.9 L Hct 30.5 L MCV 85 MCH 27.6 MCHC 32.5 RDW Std Deviation 52.8 H Plt Count 144 D Neut % (Auto) 79 Lymph % (Auto) 11 [place] % (Auto) 9 Eos % (Auto) 0 Baso % (Auto) 0 Neut # (Auto) 13.7 H Lymph # (Auto) 1.9 [place] # (Auto) 1.6 H Eos # (Auto) 0.0 Baso # (Auto) 0.0 Immature Gran # (Auto) 0.15 H Absolute Nucleated RBC 0.02 H Immature Gran % 1 H Nucleated RBC % 0 Sodium 139 Potassium 4.8 Chloride 109 H Carbon Dioxide 23.4 Anion Gap 7 BUN 10 Creatinine 0.7 Estim Creat Clear Calc 100.6 eGFR > 60 BUN/Creatinine Ratio 14 Glucose 89 Calculated Osmolality 275 Calcium 7.1 L Corrected Calcium 8.7 Phosphorus 3.2 Total Bilirubin 1.4 H AST 43 H ALT 16 Alkaline Phosphatase 67 Total Protein 4.1 L Albumin 2.0 L Globulin 2.1 L Albumin/Globulin Ratio 1.0 L Blood Type O Positive Antibody Screen NEGATIVE Crossmatch See Detail Blood Bank Wristband ID Yes INSTRUCTIONAL SUPPORT SERVICES DIRECTOR - A/P Assessment and plan (1) S/P total abdominal hysterectomy: Status: Acute Assessment and plan: Idalia is a 38yo doing well on POD 1 s/p uncomplicated ALLA after presenting with symptomatic anemia related to persistent severe menorrhagia. She received 7u of pRBCs. Hgb stable at 9.9 (was 6 on admission). Vitals wnl, benign exam. 1x3cm blister a few cm over incision related to heating pad applied by patient after surgery. Incision itself is well-appearing. Hemodynamically stable with no evidence of infection. Plan: -Continue routine post-op care -Awaiting due to void -Tolerating clear liquids without n/v and passing flatus so will advance diet to regular at dinner -Switch toradol to motrin 800mg PO Q8hr scheduled with norco 5/325mg PO Q6hr prn pain -Encourage ambulation -IS ordered, discussed with patient -Continue levothyroxine 100mcg PO QD. Appreciate IM recommendations. (2) Symptomatic anemia: Problem details: Patient is status post multiple blood transfusions this admission. She has received 7 units of blood Status: Acute (3) Menorrhagia, premenopausal: Problem details: Status post total abdominal hysterectomy Status: Acute (4) Hypothyroidism: Status: Acute Postoperative Procedures: Procedures Operation Date: 08/27/24 07:30 Actual Procedure Side Surgeon p DX Dilatation & Curettage, with Possible Biopsy [facility] ([facility])MD s Hysterectomy, Abdominal Nenita [facility] ([facility])MD Time Spent With Patient Time: Total time spent is greater than 50% in coordination of care (as documented) at patient's floor/unit and/or counseling patient: Time with patient: 25 - 35 minutes
[2024-08-28] MEDS: LACTULOSE SYRUP 20 GM/30 ML UDC 10 GM PO (14:00)
[2024-08-28] MEDS: IBUPROFEN TAB 400 MG TABLET 800 MG PO ×2 (14:01→22:14)
--- NOTE | 2024-08-28 17:18 | PC.NURSE ---
Patient voided again and hand no complaints of burning.
[2024-08-29] VITALS: BP 116/63; PULSE 71; PULSE 78; RESP 17; TEMP 36.2; O2SAT 97
[2024-08-29 03:43] VITALS: PULSE 75
[2024-08-29 04:00] VITALS: BP 117/80; PULSE 76; RESP 17; TEMP 36.2; O2SAT 95
[2024-08-29] MEDS: LEVOTHYROXINE SODIUM 112 MCG TABLET PO (05:25)
[2024-08-29] MEDS: IBUPROFEN TAB 400 MG TABLET 800 MG PO (05:25)
[2024-08-29 05:42] LABS: Basophils # (Auto) 0.1 Thou/mm3 (0.0-0.2); Basophils % (Auto) 1 % (0-2.5); Eosinophils # (Auto) 0.1 Thou/mm3 (0.0-0.5); Eosinophils % (Auto) 1 % (0-10); Hemoglobin 8.9 g/dL (12.0-16.0); Immature Granulocytes % (Auto) 1 % (0-0); Immature Granulocytes Auto 0.13 Thou/mm3 (0.00-0.00); Lymphocytes # (Auto) 1.9 Thou/mm3 (1.0-4.8); Lymphocytes % (Auto) 17 % (10-50); Mean Corpuscular Hemoglobin 28.3 pg (25.0-35.0); Mean Corpuscular Volume 86 fL (80-100); Monocytes # (Auto) 0.8 Thou/mm3 (0.0-0.8); Monocytes % (Auto) 7 % (0-12); Neutrophils # (Auto) 8.1 Thou/mm3 (1.8-7.7); Neutrophils % (Auto) 73 % (37-80); Nucleated Red Blood Cell % 0 /100 WBC (0); Platelet Count 133 Thou/mm3 (140-440); RDW Standard Deviation 52.7 fL (36.4-46.3); Red Blood Count 3.15 Miln/mm3 (4.00-5.20)
[2024-08-29 06:23] LABS: Alanine Aminotransferase 18 U/L (10-49); Albumin, Serum 2.1 gm/dL (3.5-5.0); Albumin/Globulin Ratio 1.1 (1.2-2.2); Alkaline Phosphatase 74 U/L (46-116); Anion Gap 8 (7-16); Aspartate Amino Transferase 47 U/L (0-34); BUN/Creatinine Ratio 15 Ratio (12-20); Blood Urea Nitrogen 9 mg/dL (9-23); Calcium (Corrected) 8.3 mg/dL (8.5-10.1); Carbon Dioxide 21.2 mMol/L (20.0-31.0); Chloride 110 mMol/L (98-107); Creatinine (Component) 0.6 mg/dL (0.6-1.3); Estimated Creatinine Clearance 117.4 mL/min (>60); Glucose 89 mg/dL (74-106); Osmolality,Calculated 275 (275-295); Potassium 3.7 mMol/L (3.4-5.1); Sodium 139 mMol/L (136-145); Total Protein 4.1 gm/dL (5.7-8.2); eGFR > 60 See Note
[2024-08-29 06:31] LABS: Calcium 6.8 mg/dL (8.3-10.6)
--- NOTE | 2024-08-29 06:49 | ESDS_ITS ---
<Statement entered by Nila Zamudio MD - 09/02/24 16:23> I reviewed above note and agree with findings and plans. I have also personally examined the patient with medicine team and went over assessment and plan with medical team including paralegal internship and resident physician. Planned Discharge Date 08/29/24 DS: Providers Provider Date of admission: 08/26/24 06:02 Primary care physician: Mario Zhou MD Admitting Provider: Rex Garcia MD Attending Provider on Admission: Ethan Black MD Consults: 08/26/24 05:30 Consult to Gynecology Stat Comment: Consulting Provider: Karen ([facility])Nenita 08/28/24 05:55 Referral Wound Care Routine Comment: left upper abdomen blister Attending Provider on DC: Isaías Zambrano MD Discharging Provider: Isaías Zambrano MD DS: Diagnosis Problem List Completed Was Problem List Reviewed/Reconciled?: Yes Hospital Course Hospital Course Hospital course: 38 yr female with PMH of iron deficiency anemia, alcohol use disorder presenting to ED due to heavy periods causing dizziness and lightheadedness. SOFTWARE ENGINEER WEB SERVICES Dr Jones was consulted. Patient to be admitted for management of acute blood loss anemia and hysterectomy. #Acute blood loss anemia Secondary to #Menorrhagia, refractory to Tranexemic acid #Uterine fibroids s/p hysterectomy on 08/27, postop day 1 #HPV status post LEEP #Leukocytosis, likely reactive Differentials include: Uterine fibroid, HPV induced uterine mass History of heavy periods started about 1 year ago. Patient has hx of fibroids causing menorrhagia. Experiencing symptoms such as dizziness, lightheadedness. Endorses heavy clots greater than quarter size and changes pads every 10 to 20 minutes. SOFTWARE [employer]ER [employer] Dr Jones was consulted. Stated that patient should be admitted and started on RBC transfusions with a goal hemoglobin of 10. 08/26 : Has received total of 2 units RBC while in ED + Transfusion additional 2 units of PRBC 08/27 : Hb improved overnight from 9.0 -> 9.7 post transfusions of total of 4 units. 08/28: Hemoglobin stable; patient has leukocytosis likely reactive secondary to surgery Plan: SOFTWARE ENGINEER [employer] Dr. Jones consulted, appreciate recommendations. Will proceed with hysterectomy today. CLD as tolerated, will advance as per Small Order Cutter Encourage ambulation Incentive spirometer Multimodal pain management Discontinued Donovan catheter Monitor leukocytosis with morning labs #Hypothyroidism TSH 16, free T4 0.71. Patient denies any prior history of hypothyroidism Plan: Continue synthroid 112mcg as per weight based dosing. 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 #Hyperdense gallbladder Patient not exhibiting any signs of withdrawal at this time Last drink was 1 week ago During workup, patient CT scan showed hyperdense gallbladder On examination, patient does not have any right upper quadrant tenderness or Menard sign Ultrasound gallbladder shows normal gallbladder with moderate hepatomegaly secondary to NAFLD Plan: Monitor for any acute changes Counseled on complete alcohol cessation Hospital Management: Dispo: med tele, postop day 1 from total abdominal hysterectomy Lines: PIV FEN: CLD -> will advance as tolerated GI prophylaxis: Protonix DVT prophylaxis: SCDs CODE STATUS: Full code Patient seen and examined with attending Dr. 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 Jones (OB[facility]) within 1 week after discharge If you develop new or worsening chest pain, shortness of breath, severe abdominal pain or bleeding - please come back to the ED immediately. Time Spent with Patient Time attestation: Total time spent providing and/or coordinating discharge services: 45 minutes Time spent: Greater than 30 minutes Exam Vital Signs Temp Pulse Resp BP Pulse Ox O2 Del Method O2 Flow Rate 97.1 F 76 17 117/80 95 Room Air 1 08/29/24 04:00 08/29/24 04:00 08/29/24 04:00 08/29/24 04:00 08/29/24 04:00 08/29/24 04:00 08/28/24 04:53 Narrative Exam Physical Exam: GENERAL: Awake, answering questions appropriately, appears stated age HEENT: NC/AT. Moist mucosa. PERRLA/EOMI. Conjunctival pallor CARDIO: Heart RRR, no obvious murmurs, no JVD. PULM: No coughing or visible SOB. Lungs CTA B/L. GI: Abdomen soft,abdominal binder on. Borborygmi apparent SKIN/MSK/EXT: No wounds/discoloration/rashes/edema/amputations noted. +Pedal pulses present B/L. NEURO: Oriented x3, Moves extremities x4, no focal neurologic deficits noted Discharge Plan Plan Patient Disposition: HOME (Self Care) Patient condition on transfer: Stable Care Plan Goals: Please stop taking Provera 10 mg tablet by mouth once a day Stop taking Protonix 40mg table by mouth once a day Take Docusate 100 mg by mouth once a day for constipation Take Ondansetron 4 mg table by mouth every 6 hours as needed for nausea Take Ibuprofen 600mg tablet every 6 hours for Pain 1-3 and/or Fever >100.1 Take [place] 5-325mg tablet every 6 hours for severe Pain 7-10 Follow-up with Dr. Jones (OBN) within 1 week after discharge If you develop new or worsening chest pain, shortness of breath, severe abdominal pain or bleeding - please come back to the ED immediately. Prescriptions/Referrals Prescriptions/Med Rec: New hydrocodone-acetaminophen 5-325 mg Tablet 1 tab PO Q6HR MDD 4 PRN (Reason: Pain Scale 7-10 (Severe) 7 Days Qty: 28 0RF ibuprofen 600 mg Tablet 600 mg PO Q6HR PRN (Reason: Pain Or Fever > 101) 15 Days Qty: 40 0RF ondansetron 4 mg tablet,disintegrating 4 mg PO Q6H PRN (Reason: nausea and vomiting) 7 Days Qty: 20 0RF docusate sodium [Stool Softener] 100 mg capsule 100 mg PO QDAY 30 Days Qty: 30 0RF Continued pantoprazole [Protonix] 40 mg tablet,delayed release (DR/EC) 40 mg PO BID Qty: 60 0RF losartan 50 mg tablet 50 mg PO QDAY Qty: 30 0RF Discontinued medroxyprogesterone [Provera] 10 mg tablet 10 mg PO QDAY Qty: 10 0RF pantoprazole [Protonix] 40 mg tablet,delayed release (DR/EC) 40 mg PO QDAY Qty: 20 0RF Referrals: Karen ([facility]),Nenita Avila MD [Physician] - Patient/Caregiver Discharge Instructions Meds to Beds: Yes Discharge Activity: activity as tolerated Education Materials: The Role of the Thyroid Gland, Common Thyroid Problems, Abdominal Hysterectomy Dc Print Language: Cypriot Stand Alone Forms: Traci Award Info., Patient Portal Info Letter Discharge Order Discharge Orders: Discharge (Routine); Ordered 08/29/24 Ordered By: Chele Beckham Quality Discharge Quality Measures VTE prophylaxis
[2024-08-29 06:51] VITALS: PULSE 72; RESP 16; RESP 98
[2024-08-29] MEDS: PANTOPRAZOLE 40 MG TABLET PO (07:11)
[2024-08-29 07:44] VITALS: PULSE 89
[2024-08-29 08:00] VITALS: BP 118/65; PULSE 78; RESP 19; TEMP 36.4; O2SAT 95
[2024-08-29] MEDS: HYDROcodone/APAP 5/325 TABLET 2 TAB PO (08:07)
[2024-08-29] MEDS: CALCIUM CARBONATE 600 MG TABLET PO (08:07)
--- NOTE | 2024-08-29 08:15 | ESPR_ITS ---
Documentation for date of: 08/29/24 CONTINUOUS CHURN BUTTERMAKER Subjective Subjective Interval history: Patient doing very well. Pain is well controlled with oral pain meds. She is ambulating no lightheadedness/dizziness. Voiding spontaneously since mckeon was removed yesterday, no issues. Tolerating regular diet without nausea/vomiting. Passing gas and had a BM yesterday. No fevers/chills, no CP/SOB. Exam Vital Signs Temp Pulse Resp BP Pulse Ox O2 Del Method O2 Flow Rate 97.6 F 78 19 118/65 95 Room Air 1 08/29/24 08:00 08/29/24 08:00 08/29/24 08:00 08/29/24 08:00 08/29/24 08:00 08/29/24 08:00 08/28/24 04:53 Narrative Exam General: well developed, well nourished, no acute distress, conversant Cardiac: normal heart rate Lungs: breathing without distress Abdomen: soft, non-tender, no rebound or guarding, pfannenstiel incision covered by dry/clean/intact prineo bandage. Incision well reapproximated. No erythema, drainage or induration. 1x3cm blister a few cm over incision, dry. Extremities: no pain with palpation of calves, no edema of BLE Urinary Catheter Management Cath placed during this visit: no CONTINUOUS CHURN BUTTERMAKER - PN: Obj Data Labs 08/29/24 04:30 08/29/24 04:30 Labs: Laboratory Results - last 24 hr 08/26/24 08/29/24 01:49 04:30 WBC 11.0 D RBC 3.15 L Hgb 8.9 L Hct 27.0 L MCV 86 MCH 28.3 MCHC 33.0 RDW Std Deviation 52.7 H Plt Count 133 L Neut % (Auto) 73 Lymph % (Auto) 17 [place] % (Auto) 7 Eos % (Auto) 1 Baso % (Auto) 1 Neut # (Auto) 8.1 H Lymph # (Auto) 1.9 [place] # (Auto) 0.8 Eos # (Auto) 0.1 Baso # (Auto) 0.1 Immature Gran # (Auto) 0.13 H Absolute Nucleated RBC 0.00 Immature Gran % 1 H Nucleated RBC % 0 Sodium 139 Potassium 3.7 D Chloride 110 H Carbon Dioxide 21.2 Anion Gap 8 BUN 9 Creatinine 0.6 Estim Creat Clear Calc 117.4 eGFR > 60 BUN/Creatinine Ratio 15 Glucose 89 Calculated Osmolality 275 Calcium 6.8 L* Corrected Calcium 8.3 L Total Bilirubin 1.0 AST 47 H ALT 18 Alkaline Phosphatase 74 Total Protein 4.1 L Albumin 2.1 L Globulin 2.0 L Albumin/Globulin Ratio 1.1 L Crossmatch See Detail CONTINUOUS CHURN BUTTERMAKER - A/P Assessment and plan (1) S/P total abdominal hysterectomy: Status: Acute Assessment and plan: Idalia is a 38yo female doing well on POD 2 s/p uncomplicated ALLA after presenting with symptomatic anemia related to persistent severe menorrhagia. She received 7u of pRBCs. Hgb 8.9 (was 6 on admission). Vitals wnl, benign exam. 1x3cm blister a few cm over incision related to heating pad applied by patient after surgery. Incision itself is well-appearing. Hemodynamically stable with no evidence of infection. Meeting all post-op milestones. Plan: -Patient discharged by IM team this morning -Discussed home meds: motrin, norco, colace, levothyroxine. -Continue levothyroxine 112mcg PO QD. Will need to follow up with PCP within a month to have repeat thyroid labs ordered to titrate levothyroxine going forward. -Follow up with Dr. Jones in 1 week for incision check, call clinic for appointment -Discussed return precautions for fevers/chills, increasing/severe pain, heavy vaginal bleeding -Emphasized importance of complete vaginal rest and no heavy lifting for 6 weeks -Discussed wound care- ok to shower, keep very dry after. Do not submerge incision. (2) Symptomatic anemia: Problem details: Patient is status post multiple blood transfusions this admission. She has received 7 units of blood Status: Acute (3) Menorrhagia, premenopausal: Problem details: Status post total abdominal hysterectomy Status: Acute (4) Hypothyroidism: Status: Acute Postoperative Procedures: Procedures Operation Date: 08/27/24 07:30 Actual Procedure Side Surgeon p DX Dilatation & Curettage, with Possible Biopsy Nenita [facility] ([facility]), s Hysterectomy, Abdominal Nenita Jones ([facility]), Time Spent With Patient Time: Total time spent is greater than 50% in coordination of care (as documented) at patient's floor/unit and/or counseling patient: Time with patient: less than 15 minutes
--- NOTE | 2024-08-29 17:12 | PC.NURSE ---
[facility] down time occurred on 08/29/2024 from [id number].
--- NOTE | 2024-08-31 12:56 | PD.ANESPROG ---
Documentation for date of: 08/31/24 POST ANESTHESIA NOTE: Patient had deep MAC converted to GETA for EUA converted to hysterectomy on 08/27/24. I just called and spoke with her on the phone and she denied any problems from anesthesia. She reported she is trying to schedule follow up appointment with Dr Jones but haven't been able to get a hold of anyone and I suggested to her to keep trying contacting her office for that as I'm not part of her scheduling personnel. She had no further questions for me. Bridger Jack MD Anesthesia Progress Note Progress Note Most recent Vital Signs: Last Vital Signs Temp 97.6 F 08/29/24 08:00 Pulse 78 08/29/24 08:00 Resp 19 08/29/24 08:00 BP 118/65 08/29/24 08:00 Pulse Ox 95 08/29/24 08:00 O2 Del Method Room Air 08/29/24 08:00 O2 Flow Rate 1 08/28/24 04:53
== END 2024-08-29 10:13 | disposition home or self-care (01) | DRG 519 ==
LOC: SERX 06:26 → SERHOLD 06:42 → S3NX 08:00
PROVIDERS: Obstetrics & Gynecology; Student in an Organized Health Care Education/Training Program; Admitting Provider Internal Medicine; Emergency Provider Emergency Medicine; PCP Obstetrics & Gynecology; Visit Provider Obstetrics & Gynecology
PROC: (CPT 58120; principal; 2024-08-27 07:30)
PROC: 0UT90ZZ Resection of Uterus, Open Approach (ICD-10-PCS; 2024-08-27 07:30)
DX: D25.9 Leiomyoma of uterus, unspecified (principal); D50.9 Iron deficiency anemia, unspecified; R63.4 Abnormal weight loss; K76.0 Fatty (change of) liver, not elsewhere classified; D62 Acute posthemorrhagic anemia; R42 Dizziness and giddiness; E03.9 Hypothyroidism, unspecified; D72.829 Elevated white blood cell count, unspecified; K66.0 Peritoneal adhesions (postprocedural) (postinfection); N92.0 Excessive and frequent menstruation with regular cycle; F10.10 Alcohol abuse, uncomplicated; I10 Essential (primary) hypertension; W18.2XXA Fall in (into) shower or empty bathtub, initial encounter; Y93.E1 Activity, personal bathing and showering; Z79.899 Other long term (current) drug therapy
CPT/HCPCS: 36415; 36430; 71045; 72197; 74176; 76705; 76856; 80053; 80069; 81001; 83735; 84100; 84439; 84443; 84703; 85014; 85018; 85025; 85610; 85730; 86850; 86900; 86901; 86923; 87086; 93225; 94664; 96365; 96366; 96367; 99285; A4217; A4649; A9579; J0131; J0689; J0690; J0696; J1100; J1171; J2250; J2371; J2405; J2704; J2765; J3010; J3475; J3490; J7030; J7040; J7120; P9016; A9270

== ENCOUNTER 2024-09-07 08:48 | Outpatient (AMB) | payer MEDICAID, SELFPAY ==
[2024-09-07 08:54] VITALS: BP 121/86; PULSE 78; RESP 16; TEMP 36.7; O2SAT 95; BMI 34.4
--- NOTE | 2024-09-07 08:54 | GYNCLNT_ITS ---
Vital Signs 09/07/24 08:54 Height 1.55 m Height Method Stated Weight 82.781 kg Weight Measurement Method Standing Scale BMI 34.4 BP 121/86 H Blood Pressure Source Automatic Cuff Blood Pressure Location Right Upper Arm Position Sitting Respiration 16 Pulse 78 Pulse Source Monitor Temp 98.1 F Temp Source Oral Pulse Oximetry (%) 95 Oxygen Delivery Method Room Air Allergies/Home Meds Allergies & Medications Allergies No Known Allergies Allergy (Verified 09/07/24 08:55) Medication Reconciliation losartan 50 mg tablet 50 mg PO QDAY #30 tabs 03/27/24 [Rx Confirmed 09/07/24] pantoprazole 40 mg tablet,delayed release (Protonix) 40 mg PO BID #60 tabs 03/27/24 [Rx Confirmed 09/07/24] docusate sodium 100 mg capsule (Stool Softener) 100 mg PO QDAY 30 days #30 caps 08/28/24 [Rx Confirmed 09/07/24] ibuprofen 600 mg tablet 600 mg PO Q6HR PRN Pain Or Fever > 101 15 days #40 tabs 08/28/24 [Rx Confirmed 09/07/24] levothyroxine 112 mcg tablet 112 mcg PO ACBR 90 days #90 tabs 08/29/24 [Rx Conf irmed 09/07/24] furosemide 20 mg tablet (Lasix) 20 mg PO BID #10 tabs 09/07/24 [Rx] silver sulfadiazine 1 % topical cream 1 applic topical BID #85 grams 09/07/24 [Rx] Intake Visit Data Collection New Patient or Established: Established Patient (seen at [facility] within 3 years) Reason for Visit:: POST OP FOLLOW UP Seen by Clinical Staff ONLY (RN/MA): No Home Health Care Physician Required: No Do You Feel Safe at Home: Yes Authorities Contacted: N/A PCP or OBGYN visit in last 3 months: Yes Hx Now: No Are you currently on any form of Control: No Pain Present Currently: No Pain Scale Used: Summers-Rose/Numerical Pain scale:: 0 Smoking Status Smoking Status: Never smoker 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 Menstrual regularity: irregular Flow: normal Monthly: Yes How many days does period last: 4 Age at menarche: 14 Currently sexually active: No If not currently sexually active, have you ever been sexually active: Yes 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 1. Little interest or pleasure in doing things: not at all 2. Feeling down, depressed, or hopeless: not at all Total score: 0 PHQ-9 3. Trouble falling or staying asleep, or sleeping too much: Not at all 4. Feeling tired or having little energy: Not at all 5. Poor appetite or overeating: Not at all 6. Feeling bad about yourself - or that you are a failure or have let yourself or your family down: Not at all 7. Trouble concentrating on things, such as reading the newspaper or watching television: Not at all 8. Moving or speaking so slowly that other people could have noticed? - Or the opposite - being so fidgety or restless that you have been moving around a lot more than usual: not at all 9. Thoughts that you would be better off or of hurting yourself in some way: Not at all Total score: 0 Source: Developed by Drs. Andrea Prabhakar, Monisha Gautam, Bryan Snider and colleagues, with an educational jun from [employer]. Depression screen completed yes Social History Living Situation History Marital Status: Lives With: Family Housing: House Housing Other:: Has 4 children. 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 History of tubal ligation during her last . She presented to the emergency room with heavy vaginal bleeding. She had been coming in multiple times over the last year and a half and been transfused on multiple occasions her hemoglobin was as low as 3 in the past. She had been started on control pills by Dr. Zhou and another provider in [place] without any relief of her bleeding. She was transfused a total of 7 units of packed red blood cells this last admission. On 08/27/2024 she underwent a total abdominal hysterectomy by myself and Dr. Black. She is here today for follow-up. She is postoperative day #10 today. Her main complaint is swelling in her legs. She states her left is slightly worse than her right. She denies fevers, chills ,vaginal bleeding, or abnormal discharge. She states that she has a burn on her abdomen because she placed a heating pad on her abdomen secondary to cramps. She is taking ibuprofen and Tylenol for pain. 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 Also of note she was diagnosed with significant hypothyroidism on admission and is on Synthroid. She will need cl ose follow-up with the resident internal medicine clinic. If her edema does not improve she might need a cardiac workup in the form of an echocardiogram. She had a normal chest x-ray and EKG before surgery. Review of Systems Review of Systems Narrative Review of Systems: Patient reports fatigue. Leg swelling. No erythema. No fevers. No chills. No nausea. No vomiting. She is emptying her bladder normally. She is having bowel movements and passing flatus. She is tolerating a general diet. Exam General General Appearance: alert, in no apparent distress, comfortable, cooperative, healthy appearing and well groomed Abdominal Abdominal exam: Present soft, scar (Incision is clean dry and intact. No erythema. No drainage.) and other (Has approximately 6 x 3 cm burn on her abdomen she states from a heating pad.) Extremities Extremities exam: Present pedal edema (Patient has significant pedal edema bilaterally to her knees. No erythema no tenderness) Office Procedures [facility] Clinic LOC & Office Proc's Nursing/Assessment Patient Status: Established Patient [facility] Clinic Nursing Assessment: Medication Reconciliation, Update PMH in EMR and Vital Signs [facility] Clinic Coordination of Care: Complex Care and Chronic Disease 1-5, Consent,records obtained, informed consent, Education Simp Pt/Fam, Lab and Imaging orders, Results/Orders obtained and Staff clarify orders Established Patient Charge Established Patient Point Assignment: 105 Established Patient Point Charge: EP Level 3 (80-115) Assessment & Plan Diagnosis / Problem List (1) Menorrhagia, premenopausal: Status: Acute Assessment and Plan: Postop day 10 status post total abdominal hysterectomy. No heavy lifting intercourse tampons or douching for a total of 5 more weeks. For abdominal burn ,silver sulfadiazine was written. (2) Hypothyroidism: Status: Acute Qualifiers: Hypothyroidism type: unspecified Qualified Code(s): E03.9 - Hypothyroidism, unspecified Assessment and Plan: On Synthroid. Follow-up with internal medicine. (3) S/P total abdominal hysterectomy: Status: Acute Assessment and Plan: Note given for work for at least 6 weeks off. Lasix 20 twice daily for 5 days. Follow-up in 7 days patient to go to the ER if either of her legs gets red swollen hot to the touch. She is still to ambulate.
== END 2024-09-07 09:24 | disposition home or self-care (01) ==
LOC: HODSOBC 08:48
PROVIDERS: Supervising Provider Obstetrics & Gynecology; Visit Provider Obstetrics & Gynecology
DX: N92.4 Excessive bleeding in the premenopausal period (principal); E03.9 Hypothyroidism, unspecified; I10 Essential (primary) hypertension; Z90.710 Acquired absence of both cervix and uterus; Z79.890 Hormone replacement therapy; Z79.899 Other long term (current) drug therapy
CPT/HCPCS: 99213; G0463